=== PATIENT | male | born 1965 | race Caucasian/White ===

== ENCOUNTER → 2018-10-31 07:06 | Outpatient (CLI) | payer OTHER, SELFPAY ==
--- NOTE | 2018-10-31 07:13 | RAD_ITS ---
STUDY: X-RAY - LEFT SHOULDER REASON FOR EXAM: Male, 53 years old. Chronic left shoulder pain TECHNIQUE: 4 view(s) of the shoulder. COMPARISON: None. FINDINGS: Normal glenohumeral articulation. Normal acromioclavicular joint. Normal acromion. Normal humeral head and visualized proximal humerus. The soft tissue structures are unremarkable. There is an old fracture of the left clavicular shaft. Normal visualized pulmonary apex. RAD/Shoulder min 2 Views IMPRESSION: The osseous structures and articular surfaces of the left shoulder appear within normal limits. There is an old healed left clavicular shaft fracture. Electronically Signed: Samy Estrella MD at 23:41 EST , Service support ,
--- NOTE | 2018-10-31 07:15 | RAD_ITS ---
STUDY: X-RAY - STERNOCLAVICULAR JOINTS bilateral REASON FOR EXAM: Male, 53 years old. Previous left clavicular fracture. TECHNIQUE: 4 view(s) of the bilateral sternoclavicular joints were obtained. COMPARISON: None. FINDINGS: Normal bilateral sternoclavicular articulations. The right clavicle appears normal. There is an old healed fracture of the mid left clavicular shaft. Normal manubrium. Normal visualized ribs. RAD/S-C Jts Min 3 Views IMPRESSION: Old healed fracture of the mid left clavicular shaft. The study is otherwise unremarkable. Electronically Signed: Samy Estrella MD at 23:40 EST , Service support ,
== END ==
PROVIDERS: Family Provider Family Medicine; PCP Family Medicine; Referring Provider Family Medicine; Visit Provider Family Medicine
DX: M19.012 Primary osteoarthritis, left shoulder (principal); M25.512 Pain in left shoulder; G89.29 Other chronic pain
CPT/HCPCS: 71130; 73030

== ENCOUNTER 2018-12-23 18:00 | Outpatient (RCR) | payer OTHER, SELFPAY ==
--- NOTE | 2018-11-26 11:29 | HP.PTEVAL ---
Patient's Visit Information EVERETT BRANDON is a 53 year old M referred to Physical Therapy by Oral Webber MD with a diagnosis of POST-TRAUMATIC ARTHRITIS LEFT SHOULDER,SYNOVITIS AND TENOSYNOVITIS. Date of Evaluation: 11/26/18 Physical Therapist: Jasson Alford PT, Cert MDT, OCS - Visit Plan Frequency: 2x /Week Duration: 4 Weeks Plan: PRECAUTION : H/O STERNOCLAVICAL DISLOCATION WEAR SUPPORTIVE BRACE - Subjective Findings: This 53 y/o male presenst to physical therapy with left shoulder pain 3 weeks. Patient has h/o dislocted SC joint many years ago. Then started trap shooting caused agitated SC joint with SC dislocted.Patient wears vrace to protect sternoclavical joint. Patient seen DR Webber did x-rays OA ,also may have torn RTC . Wants to try PT prior to MRI. Tried cortizone injections didnt help.Pain located left anterior shoulder. Symptoms worse with [place] activities ,raising above 90 degrees affects ADL'S /housework chores.Pain is decribed as a sharp pain. Patient build house 32 years .Denies parathesai/tingling. Patient pain affects sleeping. Patient pain affects QOL and function. 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 SOCIAL: - Pain Left Shoulder Pain Intensity (Out of 10): 5 Pain Intensity Range: 10 - Objective POSTURE: mild foward posture. PALPTION: tender AC ,long head bicep groove. NEURO: intact. SHOULDER AROM: flexion 165 degrees,abduction 160 degrees,ER 90 degrees,ir 70 degrees. MMT: RTC 4/5,deltoid 4-/5. FUNCTION TEST: behind neck ,L-4 - Special Tests L Shoulder External Rotation Lag Test - RC Tear: Negative L Shoulder Supine Impingement Test - RC Tear: Negative L Shoulder Lift Off Test - Subscapular Tear: Negative L Shoulder Empty Can - SS: Negative L Shoulder Yeargasons - SLAP: Negative L Shoulder Speeds Test - Labrum/Biceps: Negative L Shoulder Sulcus Sign - Inferior Laxity: Negative L Shoulder Apprehension/Relocaton - SLAP: Negative L Shoulder AC Resisted - AC: Negative L Shoulder Shrug Sign - OA/Adhesive Capsulitis: Negative - Goals Goal 1:: Independant with HEP Goal Time Frame: 4-6 Weeks Goal 2:: Independant posture for ADL'S Goal Time Frame: 4-6 Weeks Goal 3:: Patient to decrease pain with certain movements 70 % improvement Goal Time Frame: 4-6 Weeks Goal 4:: Patient to improve QUICK DASH score 5 points or greater to impro ve function. Goal Time Frame: 4-6 Weeks Goal 5:: Patient be able to perform ADLS'a nd job demands with min limitation. Goal Time Frame: 4-6 Weeks - Rehabilitation Potential Physical Therapy Diagnosis: This shoulder has signs with biciptal long head snapping ,possible labrum issues with pain with certain activity ,strength impairs ADL'S and job demands Rehabilitation Potential: Good - Anticipated Interventions Patient/Client Instruction: Educate patient on: Condition, Plan of Care For the Purpose of:: To decrease pain, To increase ROM, To improve nutrient delivery to tissue, To increase oxygenation perfusion, To improve muscle performance and motor function, To improve ability to perform ADL's, To increase tolerance to activity/condition/position, To improve ability of physical actions for home/community/work/leisure, To improve health of tissue, To decrease soft tissue restriction, To increase flexibility/ROM, To improve ability to perform tasks related to life management Therapeutic Exercise to Include: Strength training, Postural training, Flexibilty training, Active ROM, Dulce Exercises For the Purpose of:: To decrease pain, To increase ROM, To improve muscle performance and motor function, To increase tolerance to activity/condition/position, To improve performance and independence with ADL's, To improve ability of physical actions for home/community/work/leisure, To improve health of tissue, To decrease soft tissue restriction, To increase flexibility/ROM, To improve ability to perform tasks related to life management TENS: Yes IF ES: Yes Cryotherapy (ice pack, ice massage): Yes Thermo therapy (hot pack): Yes Ultrasound (thermal/non thermal): Yes For the Purpose of:: To decrease pain, To decrease swelling/inflammation, To improve nutrient delivery to tissue, To increase oxygenation perfusion, To improve health of tissue, To decrease soft tissue restriction Thank you for the opportunity to evaluate your patient. For Medicare and Medicare HMO plans, please review the plan of care and approve it. It will need to be FAXED BACK to us at [phone] for Medicare purposes. For Medicare only, by signing this I certify the plan of care. Please let me know if there are questions or concerns regarding this plan of care. Physician Signature: Date:
--- NOTE | 2019-05-01 15:29 | HP.PTDCSUM ---
HP - PT D/C Summary It has been my pleasure to treat EVERETT BRANDON under orders from Oral Wbeber MD, for the diagnosis of POST-TRAUMATIC ARTHRITIS LEFT SHOULDER,SYNOVITIS AND TENOSYNOVITIS for a total of 9 visit(s). Discharge Date: 12/23/18 Please see the following information for a summary of their discharge status. - Subjective Subjective: Sore today ,but popping and sharp pain is better. - Pain Left Shoulder Pain Intensity (Out of 10): 4 - Overall Improvement % Improvement: 60 - Objective Objective/Function: POSTURE: mild foward posture. PALAPTION: tender long bicep tendon. NEURO: intact. AROM: shoulder flexion 160,abd. 160 ,ER pain with OP. MMT: RTC 4/5 ,deltoid 4/5 - Goals Goal 1:: Independant with HEP Goal Progress: Goal Met Goal 2:: Independant posture for ADL'S Goal Progress: Goal Met Goal 3:: Patient to decrease pain with certain movements 70 % improvement Goal Progress: Goal Met Goal 4:: Patient to improve QUICK DASH score 5 points or greater to impro ve function. Goal Progress: Goal Met Goal 5:: Patient be able to perform ADLS'a nd job demands with min limitation. Goal Progress: Goal Met - Plan Plan: RTC RTD - D/C Information Discharge Comments: HEP If there are questions or concerns regarding this patient's physical therapy, please feel free to call me at [phone]. Thank you for the referral of this patient. Sincerely, Jasson Alford, PT, Cert MDT, OCS
== END 2018-12-23 19:00 | disposition home or self-care (01) ==
LOC: PT 18:00
PROVIDERS: Family Provider Family Medicine; PCP Family Medicine; Referring Provider Specialist; Visit Provider Specialist
DX: M19.112 Post-traumatic osteoarthritis, left shoulder (principal); M65.812 Other synovitis and tenosynovitis, left shoulder
CPT/HCPCS: 97014; 97110; 97162; 97530; G0283

== ENCOUNTER → 2019-01-29 12:28 | Outpatient (CLI) | payer OTHER, SELFPAY ==
--- NOTE | 2019-01-29 12:32 | MRI_ITS ---
STUDY: MRI LEFT SHOULDER REASON FOR EXAM: Left shoulder pain for 2 months, no specific injury. TECHNIQUE: Standardized fat and water weighted pulse sequences were obtained in all 3 orthogonal planes. COMPARISON: Radiographs 10/31/2018. FINDINGS: There is mild supraspinatus tendinosis and a small non retracted full-thickness tear of the distal anterior supraspinatus tendon (T2 coronal image 6; T2 axial image 7) measuring 0.25 x 0.4 cm (length x width). Normal infraspinatus tendon. There is mild subscapularis tendinosis (proton density axial image 11) without discrete tendon tear. Normal teres minor tendon. Normal supraspinatus muscle. There is mild atrophy with mild partial fat replacement of the infraspinatus muscle (T2 axial images 7, 8). Normal subscapularis muscle. Normal teres minor muscle. Normal glenohumeral articulation. Normal humeral head and visualized proximal humerus. Normal biceps labral complex. Normal intracapsular long biceps tendon. There is a small tear of the posterior inferior labrum (proton density axial image 14) with a small associated paralabral cyst (T2 coronal image 16). Normal capsulo- ligamentous complex. There is acromioclavicular arthrosis with mild hypertrophic changes abutting the supraspinatus musculotendinous junction (T2 sagittal image 8). There is a Type II morphology (curved), with a neutral orientation. There is a very small volume subacromial-subdeltoid bursal fluid. Normal visualized coracohumeral and coracoacromial ligaments. Normal deltoid muscle. Normal trapezius muscle. MRI/Upper Ext Joint Only(Routine) IMPRESSION: Small full-thickness tear and mild tendinosis of the supraspinatus tendon. Mild subscapularis tendinosis. Mild atrophy of the infraspinatus muscle. Small tear of the posterior inferior labrum with a small paralabral cyst. Acromioclavicular arthrosis. Very small volume of subacromial-subdeltoid bursal fluid. Electronically Signed: Ulises Mcnally MD at 13:57 EDT Tel , Service support ,
== END ==
PROVIDERS: Family Provider Family Medicine; PCP Family Medicine; Referring Provider Specialist; Visit Provider Specialist
DX: M65.812 Other synovitis and tenosynovitis, left shoulder (principal)
CPT/HCPCS: 73221

== ENCOUNTER 2019-03-24 07:46 | Day surgery (SDC) | payer OTHER, SELFPAY ==
--- NOTE | 2019-02-25 09:36 | EKG12_ITS ---
Test Reason : PRE OP Blood Pressure : / mmHG Vent. Rate : 051 BPM Atrial Rate : 051 BPM P-R Int : 134 ms QRS Dur : 110 ms QT Int : 368 ms P-R-T Axes : 025 050 041 degrees QTc Int : 339 ms Sinus bradycardia Otherwise normal ECG Confirmed by JORDAN HOWE, ALBINO ([id number]), content editor SATISH JIMÉNEZ ([id number]) on 02/26/2019 11:25:38 AM Referred By: Keaton Reyna Confirmed By:ALBINO ORTEGA MD
[2019-02-25 10:05] LABS: Hematocrit 45.4 % (40-54); Hemoglobin 15.7 g/dl (13.0-16.5); Mean Corp Hgb Conc 34.6 g/gl (32-36); Mean Corpuscular Hgb 32.4 pg (27.0-32.0); Mean Corpuscular Volume 93.6 fL (80-94); Platelet Count 189 K/mm3 (150-450); RBC Distribution Width CV 12.7 % (11.6-14.6); RBC Distribution Width SD 42.7 fl (35.1-43.9); Red Blood Count 4.85 M/mm3 (4.6-6.2); White Blood Count 5.9 K/mm3 (4.4-11.0)
[2019-02-25 10:07] LABS: Scan Indicated on CBC? Y/N NO
[2019-02-25 10:46] LABS: Anion Gap 4 (5-15); BUN 15 mg/dL (7-18); BUN/Creat Ratio 17.7 RATIO (10-20); Calcium,Total 8.8 mg/dL (8.5-10.1); Chloride 107 mmol/L (98-107); Creatinine, Serum 0.85 mg/dL (0.70-1.30); EST Glomerular Filtration Rate 99 mL/min (>60); Est Glom Filt Rate - Afr Amer 120 mL/min (>60); Glucose 98 mg/dL (74-106); Potassium 3.8 mmol/L (3.5-5.1); Sodium Level 137 mmol/L (136-145)
[2019-03-24 08:12] VITALS: BP 124/86; PULSE 62; RESP 14; TEMP 36.6; O2SAT 98; BMI 29.3
[2019-03-24] MEDS: Cefazolin 2 GM in 0.9% Normal Saline 100 ML IV (09:54)
[2019-03-24] MEDS: Epinephrine (1 mg/ml) 1 MG/ML VIAL (10:00)
[2019-03-24] MEDS: Bupiv/Epi 0.5% Mpf 30 ML Vial (10:30)
--- NOTE | 2019-03-24 10:56 | PCM.OPRPT ---
Report of Operation Date of Procedure: 03/24/19 Pre-Operative Diagnosis: SAIS, AC arthrosis possible rotator cuff tear left shoulder Post-Operative Diagnosis: SAIS, AC arthrosis, bicipital tendinopathy, no rc tear left Surgery/Procedure Performed:: SAD, Tiana procedure, biceps tenotomy, intra-articular debridement left shoulder Description of Surgical Findings:: Primary Surgeon/Physician: Keaton Reyna efficiency analyst: Jb Fitzgerald PA-C efficiency analyst: Pre-Operative Diagnosis: SAIS, AC arthrosis, bicipital tendinopathy, possible rotator cuff tear left Post-Operative Diagnosis: same with no rotator cuff tear and Type 2 SLAP lesion Surgery/Procedure Performed: SAD, Tiana, biceps tenotomy, intra-articular debridement Estimated Blood Loss: minimal Specimen's Removed: none Type of Anesthesia: general ASA Class: 2 Implants: [] Surgical Indications: [ ] Procedure Description: Patient was greeted in the preoperative area. Their [left ] shoulder was marked with surgical marker. Preoperative antibiotics were administered. The patient was then taken to the operating suite in a stable condition. After adequate anesthesia was obtained and it was secured there placed in standard beachchair position. All bony prominences were well-padded her head was secured in a beachchair positioner. The arm was then prepped and draped in the usual sterile fashion. Surgical timeout was performed surgery was commenced. Standard posterior viewing portal was made and 30? arthroscope was introduced into the glenohumeral joint. Anterior portal was made under direct visualization. Extensive debridement of the anterior capsule was performed evaluation of the shoulder itself was performed with the following findings: [ There was interstitial tearing of the biceps tendon with severe tendinopathy noted. There was a Type 2 SLAP lesion noted with no instability of the labrum. The surface cartilage of the glenoid and humeral head were in good condition. There was mild fraying of the undersurface of the supraspinatus tendon. This area was marked with an 0 Prolene stitch for identification from the bursal surface. A biceps tenotomy was performed with a shaver and the shaver was used to debride the labrum back to a firm and stable rim.]. The subacromial space was then entered and extensive debridement of the subacromial bursa was performed. The undersurface of the acromion was then debrided with a thermal wand. This did reveal a type II acromion. Subacromial decompression was then performed with a arthroscopic bur from anterolateral posteromedial create a type I acromion. When this was complete the wand was then utilized to debride the acromioclavicular joint. There were significant osteoarthritic changes. A distal clavicle resection was then performed removing approximately 5 mm of distal clavicle not violating the superior acromioclavicular ligament. This was complete attention was then turned to the rotator cuff. [The stitch that I had placed was identified and this area was probed reveling no full thickness or significant partial rotator cuff tear ]. The arthroscopy instruments and fluid were then removed and the portals were closed with interrupted sutures of 4-0 nylon. A sterile dressing and sling were than applied. The patient was extubated and sent to PACU in stable and satisfactory condition. My producer assistant, Mr. Fitzgerald, provided a vital role in this procedure. He assisted in positioning and draping. He maneuvered the arm to provide optimal visualization during the procedure and he closed the wounds and applied the sterile dressing and sling. efficiency analyst: Kyel Fitzgerald Type of Anesthesia:: General/Regional Anesthesiologist: Rajendra Phillips - Ana VTE Documentation VTE Present on Admission: No VTE Mechan Device Prophylaxis: SCD's, Thigh High ARTHUR Hose VTE Pharm Prophylaxis ordered?: No Reason prophylaxis not ordered:: Treatment Not Indicated
[2019-03-24 11:20] VITALS: BP 124/86; BP 156/77; PULSE 60; RESP 16; TEMP 35.9; O2SAT 96
[2019-03-24 11:30] VITALS: BP 124/86; BP 138/92; PULSE 59; RESP 16; O2SAT 94
[2019-03-24] MEDS: Ketorolac 30 MG/ML Syringe IV (11:31)
[2019-03-24 11:45] VITALS: BP 124/86; BP 134/97; PULSE 55; RESP 16; TEMP 35.9; O2SAT 95
[2019-03-24] MEDS: HYDROcodone Bitartrate/Apap 5/325 Tablet PO (12:26)
[2019-03-24 12:50] VITALS: BP 124/86; BP 125/91; PULSE 65; RESP 16; TEMP 36.1; O2SAT 96
== END 2019-03-24 12:52 | disposition home or self-care (01) ==
LOC: SDC 07:47 → AC 07:49
PROVIDERS: Family Provider Family Medicine; PCP Family Medicine; Referring Provider Orthopaedic Surgery; Visit Provider Orthopaedic Surgery
PROC: (CPT 29827; principal; 2019-03-24 09:30)
DX: M19.012 Primary osteoarthritis, left shoulder (principal); M75.22 Bicipital tendinitis, left shoulder; I10 Essential (primary) hypertension; K21.9 Gastro-esophageal reflux disease without esophagitis; Z87.442 Personal history of urinary calculi; Z79.899 Other long term (current) drug therapy; Z79.891 Long term (current) use of opiate analgesic
CPT/HCPCS: 29823; 29824; 29828; 36415; 80048; 85027; 93005; J7120; J2405

== ENCOUNTER 2019-05-07 12:00 | Outpatient (RCR) | payer OTHER, SELFPAY ==
--- NOTE | 2019-03-05 12:55 | HP.PTEVAL_ITS ---
Patient's Visit Information EVERETT BRANDON is a 53 year old M referred to Physical Therapy by Keaton Reyna DO with a diagnosis of L rot cuff tear. Date of Evaluation: 03/05/19 Physical Therapist: Destin Ribera, PT, ATC - Visit Plan Frequency: 1x/Week Duration: 1 Week Plan: I Issued pt a HEP for rotator cuff strengthening and scapular stab ex's. Pt is I with HEP. Discharge. - Subjective Findings: Pt reports his L shoulder has been sore for a couple months. 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 Pt reports once the pain started, it just progressively worsened over this time span. Pt is L hand dominant. Pt reports occasional tingling and numbness in L UE. Pt reports his pain wakes him up in the middle of the night. Pt reports he had an MRI which showed bone spurs and a tear of the L rotator cuff which all needs to be surgically repaired. Pt notes he is scheduled to have surgery 03/24/19, and so he is here to get some ex's to strengthen his shoulder prior to surgery. 0/10 pain at rest, 7/10 at worst. - Pain L shoulder pain Pain Intensity (Out of 10): 0 Pain Intensity Range: 7 - Objective Neuro: B UE sensation is WNL to light touch. B bicepital reflex= 2/3. Palpation: No specific tenderness on the distribution of the supraspinatus. No obvious deformity present. ROM: R shoulder flex= 165, abd= 170, ER= 60, IR WNL; L shoulder flex= 155, abd= 155, ER= 55, IR WNL. MMT: L shoulder ER= 4+/5. All other measurements 5/5 throughout. Special test: pos empty can - Goals Goal 1:: I with HEP after one visit Goal Time Frame: 1 Week - Rehabilitation Potential Physical Therapy Diagnosis: Pt has L shoulder weakness, decreased ROM, and pain secondary to L shoulder rot cuff tear Rehabilitation Potential: Good - Anticipated Interventions Patient/Client Instruction: Educate patient on: Condition, Plan of Care For the Purpose of:: To improve self management Therapeutic Exercise to Include: Strength training, Scapular Strength/Stabilization For the Purpose of:: To decrease pain, To increase ROM, To improve muscle performance and motor function Thank you for the opportunity to evaluate your patient. For Medicare and Medicare HMO plans, please review the plan of care and approve it. It will need to be FAXED BACK to us at [phone] for Medicare purposes. For Medicare only, by signing this I certify the plan of care. Please let me know if there are questions or concerns regarding this plan of care. Physician Signature: Date:
--- NOTE | 2019-03-31 09:44 | HP.PTREVAL ---
Keaton Reyna, DO, It has been my pleasure to treat EVERETT BRANDON over the last 2 visits for L rot cuff tear. Please see the progress note below for an update on the physical therapy plan of care! Subjective: Pt return after having surgery one week ago. No pain this date. Pt reports he had decompression with a rotator cuff repair. DOS: 03/24/19 Objective/Function: L shoulder Flex= 140, abd= 140 degrees. Pain is 0/10 at rest. Pt is recovering great at this time Plan Plan: Phase I rotator cuff repain Goals Goal 1:: I with HEP after one visit Goal Time Frame: 1 Week Anticipated Interventions Patient/Client Instruction: Educate patient on: Condition, Plan of Care For the Purpose of:: To improve self management Therapeutic Exercise to Include: Strength training, Scapular Strength/Stabilization For the Purpose of:: To decrease pain, To increase ROM, To improve muscle performance and motor function Please do not hesitate to contact me at [phone] by phone or if you have questions or concerns regarding this new plan of care! Sincerely, Destin Ribera, PT, ATC
--- NOTE | 2019-05-07 12:26 | HP.PTDCSUM ---
HP - PT D/C Summary It has been my pleasure to treat EVERETT BRANDON under orders from Keaton Reyna DO, for the diagnosis of L rot cuff tear for a total of 7 visit(s). Discharge Date: Please see the following information for a summary of their discharge status. - Subjective Subjective: Pt reports today is his last day. Dr released him from PT. No pain this date - Pain L shoulder pain Pain Intensity (Out of 10): 0 - Overall Improvement % Improvement: 90 - Objective Objective/Function: L shoulder pain 0/10. L shoulder ROM: flex= 150, abd= 135, ER= 55, IR WNL. L shoulder MMT: 4/5 throughout. I with HEP. Rx goals achieved - Goals Goal 1:: I with HEP after one visit Goal Progress: Goal Met - Plan Plan: Discharge - D/C Information If there are questions or concerns regarding this patient's physical therapy, please feel free to call me at [phone]. Thank you for the referral of this patient. Sincerely, Destin Ribera, PT, ATC
== END 2019-05-07 19:00 | disposition home or self-care (01) ==
LOC: PT 12:00
PROVIDERS: Family Provider Family Medicine; PCP Family Medicine; Referring Provider Orthopaedic Surgery; Visit Provider Orthopaedic Surgery
DX: S46.012D Strain of muscle(s) and tendon(s) of the rotator cuff of left shoulder, subsequent encounter (principal)
CPT/HCPCS: 97140; 97161; 97530

== ENCOUNTER → 2019-06-25 08:33 | Outpatient (CLI) | payer OTHER, SELFPAY ==
[2019-06-25 09:36] LABS: ALB/GLOB Ratio 1.3 RATIO (0.9-2.4); AST(SGOT) 23 U/L (15-37); Alanine Aminotransfer ALT/SGPT 38 U/L (16-61); Albumin, Serum 3.8 g/dL (3.2-5.0); Alkaline Phosphatase 82 U/L (45-117); Anion Gap 7 (5-15); BUN 13 mg/dL (7-18); BUN/Creat Ratio 16.8 RATIO (10-20); Calcium,Total 8.2 mg/dL (8.5-10.1); Chloride 111 mmol/L (98-107); Cholesterol 246 mg/dL (200); Creatinine, Serum 0.77 mg/dL (0.70-1.30); EST Glomerular Filtration Rate 111 mL/min (>60); Est Glom Filt Rate - Afr Amer 134 mL/min (>60); Globulin 2.9 g/dL (2.2-4.2); Glucose 98 mg/dL (74-106); High Density Lipoprotein 41 mg/dL; Magnesium 2.1 mg/dL (1.6-2.6); PSA,Total - Annual Screen 2.61 ng/mL (0.00-4.00); Potassium 3.9 mmol/L (3.5-5.1); Protein, Total 6.7 g/dL (6.4-8.2); Sodium Level 142 mmol/L (136-145); Thyroid Stim Hormone (TSH) 2.39 uIU/mL (0.358-3.74); Triglycerides 84 mg/dL; Very Low Density Lipoprotein 17 mg/dL (5-40)
== END ==
PROVIDERS: Family Provider Family Medicine; PCP Family Medicine; Referring Provider Family Medicine; Visit Provider Family Medicine
DX: Z00.01 Encounter for general adult medical examination with abnormal findings (principal); I10 Essential (primary) hypertension; Z12.5 Encounter for screening for malignant neoplasm of prostate
CPT/HCPCS: 36415; 80053; 80061; 83735; 84153; 84443; G0103

== ENCOUNTER 2019-07-23 10:26 | Day surgery (SDC) | payer OTHER, SELFPAY ==
[2019-07-23] VITALS (9 sets, daily range): BP systolic 97–125; BP diastolic 70–88; PULSE 55–61; RESP 16; TEMP 36.4–36.9; O2SAT 96–99; BMI 28.4
[2019-07-23] MEDS: Lactated Ringers 1,000 ML 100 ML IV (11:11)
--- NOTE | 2019-07-23 11:25 | H&P.OPEN ---
History of Present Illness Date of Admission: 07/23/19 The patient is a 54 year old M who presents for a screening colonoscopy. The patient reports he had a colonoscopy for mild bleeding about 10 to 12 years ago. At that time it was decided that it was due to his hemorrhoids as there was no pathology found. The patient does have a history of colon cancer in his mother diagnosed at age 70. The patient is currently expensing no bleeding or abdominal pain. Past Medical/Surgical History - Planned Operation Planned Operative Procedure/s: COLONOSCOPY Date of Operative Procedure: 07/23/19 Permit Signed: Yes S.O.S: No Is This Patient Having a Total Joint: No - Previous Hospitalizations/Surgeries HX Hospitalizations: No HX of Surgeries: KIDNEY STONES. COLONOSCOPY. L SHOULDER SCOPE 03/24/19 Any Problems With Anesthesia: No You/Your Family Experience Fever (Hyperthermia) With Anes: No Cholinesterase deficiency: No - Cardiovascular Hx Chest Pain within Last 2 months: No Hx of Irregular Heartbeat and/or Afib: No Hx Heart Attack: No Hx Congestive Heart Failure: No Hx Rheumatic Fever: No Hx Hypertension: Yes - ON MED Hx Internal Defibrillator: No Hx Pacemaker: No Hx Cardiac Catheterization: No Hx Cardiac Surgery/Stents/Etc.: No Hx Stress Test: Yes - OVER 5 YRS AGO.STATES NEG HX Edema: No Hx Pain in Legs when Walking/Leg Cramps: No - Respiratory Chronic Cough: No HX of Shortness of Breath: No - DENIES Hoarseness: No Hx Chronic Obstructive Pulmonary Disease (COPD): No Hx Asthma: No Hx Emphysema: No Hx Sleep Apnea: No Hx Oxygen Use at Home: No Hx Respiratory Tract Infection/Cold (presently): Yes - RUNNY NOSE, NO FEVER Do You Snore Loudly (louder than talking or can be heard): Yes Do You Often Feel Tired/ Fatigued/ Sleepy Dring Daytime?: No Has Anyone Observed You Stop Breathing During Sleep?: No Result (for STOP score): Positive Hx Smoking: No Smoking Status: Never smoker - Gastrointestinal Hx Gastroesophageal Reflux: Yes Controlled With Meds: Yes - PRILOSEC NEEDED Hx Gastrointestinal Disorders: No Hx Gastrointestinal Bleed: No Hx Ulcer: No Hx Hiatal Hernia: No Difficulty Chewing/Swallowing: No Special diet followed at home: Yes Hx Unplanned Weight Loss of 20#: No HX Unplanned Weight Gain of 20#: No - Neurological Hx Seizures: No HX Syncope/Blackout Spells/Unconsciousness: No Hx CVA/Stroke: No Hx Transient Ischemic Attacks (TIA): No Hx Multiple Sclerosis: No Hx Parkinson's Disease: No Hx Head/Neck Injury: Yes - CONCUSSION PER HX,NOT RECENT Hx Headaches: No Hx Back Injury/Pain: No Recent Onset of Speech Difficulty: No Restless Legs: No Does patient have nerve stimulator: No - Blood Disorder Hx Leukemia: No Bleeding Tendencies: No Hx Deep Vein Thrombosis: No Hx High Cholesterol: No Blood Transmitted Disease: No Hx Hepatitis: No Hx Cirrhosis: No Hx Anemia: No Hx Blood Disorders: No - Genitourinary Hx Renal Disease: No - HX STONES Hx Dialysis: No - Musculoskeletal Hx Arthritis: Yes Hx Rheumatoid Arthritis: No Hx Gout: No Recent Onset of an Orthopedic Problem: No - CHRONIC SHOULDER,LT - Endocrine Hx Diabetes: No Thyroid Disease: No Hx Steroid Therapy: Yes - INJECTION - Psycho/Social Hx Substance Use: No Hx Alcohol Use: Yes - 2 BEERS/MONTH Hx Anxiety: No Hx Depression: No Mental Illness: No Hx Dementia: No - Miscellaneous Hx Cancer: No Recent Exposure to Contagious Disease: No Active MRSA: No Hx of C-Diff: No Any Loose Teeth: No Allergies tetracycline Allergy (Verified 07/22/19 09:37) Unknown - Discharge Is Pt Admitted From a [facility], or a Correction: No Who Could Help: After D/C, Where Do you Plan to Go: Return Home - Physical Exam Vitals/I&O's: Vital Signs Temp Pulse Resp BP Pulse Ox 97.5 F L 55 L 16 125/88 H 97 07/23/19 10:56 07/23/19 10:56 07/23/19 10:56 07/23/19 10:56 07/23/19 10:56 Oxygen Delivery Method Room Air Weight: 173 lb 11.588 oz Body Mass Index (BMI) 28.4 General: Alert, Oriented x3 Neck: No JVD Lungs: Normal air movement Cardiovascular: Regular rate, Regular Rhythm Abdomen: Soft, Non Tender, Non-Distended Current Medications Lactated Ringer's () 1,000 mls @ 100 mls/hr IV .Q10H EMANUEL Last Admin: 07/23/19 11:11 Dose: 100 mls/hr Documented by: Assessment/Plan 54-year-old male screening colonoscopy I explained endoscopy in detail to the patient. I explained the risks including but not limited to stroke or heart attack with anesthesia, perforation of the GI tract, bleeding, infection. I explained that any of these could necessitate further emergency surgery. The patient understands and all questions were answered sufficiently. The patient wishes to proceed with procedure. Braden Jones MD Pager: [facility] [address] [place] [address] [address] [place] [address] Office: Surgery Risks - Colonoscopy Risks Include but are not Limited To: Risks include but are not limited to: Bleeding, perforation requiring further surgery, inability to complete colonoscopy requiring barium enema.
--- NOTE | 2019-07-23 12:09 | OP.ENDO_ITS ---
07/23/2019 Charli Michelle Re : Colonoscopy procedure for Mati Singleton Dear Viviana This procedure was performed on Tuesday, July 23, 2019. My impressions and recommendations are as follows: Impressions : - The entire examined colon is normal on direct and retroflexion views. - No specimens collected. Recommendations : - Discharge patient to home. - Resume previous diet. - Continue present medications. - Repeat colonoscopy in 10 years for screening purposes. My findings are described in the full procedure note, which is enclosed. If I can be of further assistance, please feel free to contact me at Doctor phone number(s): , Work: . Sincerely, Braden Jones MD 07/23/2019 12:09:38 PM This report has been signed electronically.
== END 2019-07-23 13:04 | disposition home or self-care (01) ==
LOC: EN 10:27 → AC 10:30
PROVIDERS: Family Provider Family Medicine; PCP Family Medicine; Referring Provider Family Medicine; Visit Provider Surgery
PROC: 0DJD8ZZ Inspection of Lower Intestinal Tract, Via Natural or Artificial Opening Endoscopic (ICD-10-PCS; CPT 45378; principal; 2019-07-23 11:25)
DX: Z12.11 Encounter for screening for malignant neoplasm of colon (principal); K21.9 Gastro-esophageal reflux disease without esophagitis; I10 Essential (primary) hypertension; Z79.899 Other long term (current) drug therapy; Z80.0 Family history of malignant neoplasm of digestive organs
CPT/HCPCS: 45378; J7120; J2405

== ENCOUNTER → 2023-03-15 | Outpatient (CLI) | payer OTHER, SELFPAY ==
[2023-03-16 09:41] LABS: PSA,Total- Diagnostic 8.55 ng/mL (0.0-4.0)
== END | disposition home or self-care (01) ==
LOC: LAB 16:29
PROVIDERS: PCP Family Medicine; Referring Provider Urology; Visit Provider Urology
DX: R97.20 Elevated prostate specific antigen [PSA] (principal)
CPT/HCPCS: 36415; 84153; G0103

== ENCOUNTER → 2023-04-02 | Outpatient (CLI) | payer OTHER, SELFPAY ==
--- NOTE | 2023-04-02 08:30 | MRI_ITS ---
STUDY: MR PELVIS WITH AND WITHOUT CONTRAST (PROSTATE) REASON FOR EXAM: Male, 57 years old. Elevated PSA TECHNIQUE: Standardized multiparametric prostate MRI with T1, T2, DWI/ADC sequences were obtained in 3 orthogonal planes, and dynamic contrast enhancement sequences. 15 ml of clariscan contrast material was administered intravenously for the contrast portion of the examination. COMPARISON: None. FINDINGS: The prostate volume measures 40 mm3. The contours of the prostate gland are lobulated. There is mass effect on the bladder base. The transition zone is homogenous. PI-RADS DWI score 3 - Focal mildly hypointense on ADC and isointense/mildly hyperintense on high b-value DWI, as seen in the left mid and transitional zone on image 9 series 501 and image 106 series 5. PI-RADS T2W score 3 - Heterogeneous signal intensity with obscured margins. Contrast enhancement no early or contemporaneous enhancement; or diffuse multifocal enhancement NOT corresponding to a focal finding on T2W and/or DWI or focal ehancement responding to a lesion demonstrating features of BPH onT2WI (including features of extruded BPH in the PZ). The peripheral zone is homogenous. PI-RADS DWI score 2 - Linear/wedge shaped hypointense on ADC and/or linear/wedge shaped hyperintense on high b-value DWI. PI-RADS T2W score 2 - Linear, wedge-shaped, or diffuse mild hypointensity, usually with indistinct margin. Contrast enhancement no early or contemporaneous enhancement; or diffuse multifocal enhancement NOT corresponding to a focal finding on T2W and/or DWI or focal enhancement responding to a lesion demonstrating features of BPH onT2WI (including features of extruded BPH in the PZ). The seminal vesicles demonstrate normal margins and T2 signal pattern. No mass lesion or invasion depicted. The rectoprostatic angles are normal. 2 cm calculus of the left side of the urinary bladder on image 4 of series 9. The vascular structures of the are normal. The visualized hollow viscus structures are normal. Small bilateral inguinal hernias. No bone marrow edema or mass lesion depicted. MRI/Pelvis W/WO Contrast IMPRESSION: 1. PIRADS v2.1 2019 -- 3 - Intermediate (clinically significant cancer is equivocal). 2. BPH obscures transitional zone. Lobular borders and mass effect on the urinary bladder base. 3. Urinary bladder calculus. Electronically Signed: Stefano Carmona (Brooks), at 16:43 EDT Reading Location ID and State: / [place] , Service support ,
== END | disposition home or self-care (01) ==
PROVIDERS: PCP Family Medicine; Referring Provider Family Medicine; Visit Provider Urology
DX: R97.20 Elevated prostate specific antigen [PSA] (principal)
CPT/HCPCS: 72197; A9575

== ENCOUNTER → 2023-04-12 | Outpatient (CLI) | payer OTHER, SELFPAY ==
--- NOTE | 2023-04-12 | PROSBIL_PTH ---
PATIENT: EVERETT BRANDON LOC: [facility] U#:[id number] AGE/SX: 58/M ROOM: RE04/12/[address]: Dr. Thuan Rainey MD : 1965 BED: DIS: 04/12/2023 SPEC #: [id number] RECD: 04/12/23 12:43 STATUS: JEFF RE #: [id number] MOOK: 04/12/23 00:[address]: Thuan Rainey DEPT: SURGICAL PATHOLOGY RECD BY: Nikita Bravo ENTERED: 04/12/23 12:43 SP TYPE: PROST BX OT DR: Dr. Charli Michelle MD Tissues: A - PROSTATE RIGHT B - PROSTATE RIGHT C - PROSTATE RIGHT D - PROSTATE LEFT E - PROSTATE LEFT F - PROSTATE LEFT Procedures: PROSTATE BX Comments: @ Specimen number changed from [id number] to [id number] @ on 04/12/23 at 1327 by CARMEN. HEADER OPERATION: Prostate biopsy PRE-OP DIAGNOSIS: Elevated PSA TISSUE SUBMITTED: A - Right apex, B - Right mid, C - Right base, D - Left apex, E - Left mid, F - Left base MICROSCOPIC DIAGNOSIS A. Right prostate, apex, core biopsy: Prostatic tissue, negative for malignancy. B. Right prostate, mid, core biopsy: Prostatic tissue, negative for malignancy. Focal mild chronic inflammation. C. Right prostate, base, core biopsy: Prostatic tissue, negative for malignancy. D. Left prostate, apex, core biopsy: Prostatic tissue, negative for malignancy. E. Left prostate, mid, core biopsy: Atypical small acinar proliferation (HAILY). Focal mild chronic inflammation. See comment. F. Left prostate, base, core biopsy: Prostatic adenocarcinoma. [place] grade: 3+3=6 Number of cores involved: 1/2 Proportion of tissue involved: ~20% Perineural invasion: Present, focal. Greatest tumor length: 0.5 cm Chronic inflammation. See comment. SJ:rg 04/13/2023 COMMENT E. Immunohistochemistry ([id number]) supports the above diagnosis. F. Focal area of atypical small acinar proliferation (HAILY) suspicious for carcinoma is also noted in the second core. Case has been reviewed in consultation with Dr. Razo who concurs with the above diagnosis. IDC:AM MICROSCOPIC DESCRIPTION Slides are reviewed. GROSS DESCRIPTION A - Received is one container designated prostate, right apex. The specimen consists of three elongated fragments of light ventura-white soft tissue measuring 0.5 to 1.2 cm in length and 0.1 cm in diameter. The specimen is totally submitted in one cassette. B - Received is one container designated prostate, right mid. The specimen consists of three elongated fragments of light ventura-white soft tissue measuring 0.5 to 1.1 cm in length and 0.1 cm in diameter. The specimen is totally submitted in one cassette. C - Received is one container designated prostate, right base. The specimen consists of two elongated fragments of light ventura-white soft tissue each measuring 1.3 cm in length and 0.1 cm in diameter. The specimen is totally submitted in one cassette. D - Received is one container designated prostate, left apex. The specimen consists of two elongated fragments of light ventura-white soft tissue measuring 1.2 and 1.7 cm in length and 0.1 cm in diameter. The specimen is totally submitted in one cassette. E - Received is one container designated prostate, left mid. The specimen consists of three elongated fragments of light ventura-white soft tissue measuring 0.7 to 1.3 cm in length and 0.1 cm in diameter. The specimen is totally submitted in one cassette. F - Received is one container designated prostate, left base. The specimen consists of two elongated fragments of light ventura-white soft tissue measuring 1.3 and 1.8 cm in length and 0.1 cm in diameter. The specimen is totally submitted in one cassette. / SJ:rg 04/12/2023 TC:0 [facility]: [id number] [phone]
--- NOTE | 2023-04-12 | IMM_PTH ---
PATIENT: EVERETT BRANDON LOC: [facility] U#:[id number] AGE/SX: 58/M ROOM: RE04/12/[address]: Dr. Thuan Rainey MD : 1965 BED: DIS: 04/12/2023 SPEC #: [id number] RECD: 04/13/23 13:33 STATUS: JEFF REQ #: [id number] MOOK: 04/12/23 00:[address]: Thuan Rainey DEPT: IMMUNOHISTOCHEMISTRY RECD BY: Tena Ken ENTERED: 04/13/23 13:34 SP TYPE: IMMUNO OTHR DR: Dr. Charli Michelle MD Tissues: E - PROSTATE LEFT Procedures: P40 (add) 34BE12 (initial) PHYSICIAN & INSTITUTION [place] [id number] SPECIMEN INFORMATION: Tissue Source: E - Left prostate, mid, core biopsy Clinical Info: Elevated PSA Specimen Number: [id number] CPT code: 89128, 48952 METHODOLOGY: Deparaffinized sections of prefer/formalin-fixed tissue or PAP/DQ stained slides are incubated with monoclonal/polyclonal antibodies/oligonucleotide probes. Localization is made via biotin free immunoperoxidase method. Appropriate controls are performed and reacted as expected. Results on target cell population are indicated in the following table: RESULTS: ANTIBODY / CLONE RESULT Block E P40 (BC28) negative 34BE12 (34BE12) negative These tests were developed and their performance characteristics determined by [facility]. They may not have been cleared or approved by the U.S. Food and Drug Administration. The FDA has determined that such clearance or approval is not necessary. The above immunohistochemical/dualISH markers are ordered and reviewed by the Pathologist. INTERPRETATION: E. Left prostate, mid, core biopsy: Focal atypical small acinar proliferation. SJ:ashley 04/16/2023
== END | disposition home or self-care (01) ==
PROVIDERS: PCP Family Medicine; Referring Provider Urology; Visit Provider Urology
DX: C61 Malignant neoplasm of prostate (principal)
CPT/HCPCS: 88305; 88341; 88342; G0416

== ENCOUNTER → 2023-05-02 | Outpatient (CLI) | payer OTHER, SELFPAY ==
--- NOTE | 2023-05-02 07:45 | NM_ITS ---
CLINICAL: 79-bld[age]-year-old male with history of primary prostate carcinoma. WHOLE BODY 99m Tc MDP RADIONUCLIDE BONE SCINTIGRAPHY COMPARISON: Previous whole body bone scintigraphy study dated 12/17/2007 FINDINGS: Following the intravenous administration of 29.0 mCi of 99m Tc MDP, whole body bone images reveal: 1. Increased radiopharmaceutical concentration is defined in the sternoclavicular compartments of both shoulders, the acromioclavicular compartment of the right shoulder, the bilateral elbows, the wrist articulations bilaterally, both hands, right-left knees, the lower cervical spine posteriorly on the right, fifth lumbar vertebra posteriorly on the left and right. 2. The remaining skeletal structures are scintigraphically unremarkable with normal-appearing renal images and urinary bladder activity identified. NM/Bone Scan Whole Body IMPRESSION: 1. The increase in radiopharmaceutical concentration defined in the bilateral shoulders, right and left elbows, both wrist articulations, the right and left hands, knees bilaterally, the cervical and lumbar spine is commensurate with degenerative arthrosis. 2. Overall compared to the previous whole body bone scintigraphy study dated 12/17/2007 there is minimal interval change. There is no current scintigraphic evidence of diffuse axial skeletal metastatic disease on the present examination. Electronically Signed: Josiah Hayden, at 22:27 EDT ,
--- NOTE | 2023-05-02 07:51 | CT_ITS ---
STUDY: CT ABDOMEN AND PELVIS WITH AND WITHOUT CONTRAST REASON FOR EXAM: Male, 58 years old. Newly diagnosed prostate cancer. Urgency and frequency. RADIATION DOSAGE (If Supplied By Facility): CTDIvol = ( 19.26 ) mGy, DLP = ( 2077.69 ) mGycm TECHNIQUE: Transaxial images were obtained from the dome of the diaphragm to the symphysis pubis without oral contrast. IV 100mL Isovue-300 was administered. Sagittal and coronal images were reconstructed. Individualized dose optimization techniques were used for this CT. COMPARISON: None. FINDINGS: The visualized lung bases are unremarkable. Coronary artery calcification. Small cysts are seen in both lobes of the liver. Mild fatty infiltration of the liver. Normal gallbladder and extrahepatic biliary system. Normal spleen. Normal pancreas. Normal bilateral adrenal glands. Normal right kidney. 2 mm nonobstructive calculus in the mid calyx of the left kidney. Normal visualized stomach. Normal small intestine. Normal colon. The appendix is visualized and appears normal. There is scattered atherosclerotic calcification of the abdominal aorta, without a demonstrated aneurysm. Normal inferior vena cava. Normal retroperitoneum. Distended urinary bladder. There is a 1.9 cm x 1.3 cm calculus at the base of the bladder on the left side. There is enlargement of the prostate gland with indentation at the bladder base. It measures 5 cm x 4.2 cm. Calcifications is seen within it. There is a small umbilical hernia containing fat. Degenerative changes at the L5-S1 disc space level. CT/CT Abd/Pelvis W/WO Contrast IMPRESSION: Prostatic enlargement with indentation of the bladder base. 1.9 cm x 1.3 cm bladder calculus. Fatty infiltration of the liver. Multiple small hepatic cysts. Electronically Signed: Jose David Helms MD at 15:25 EDT ,
== END | disposition home or self-care (01) ==
PROVIDERS: PCP Family Medicine; Referring Provider Urology; Visit Provider Urology
DX: C61 Malignant neoplasm of prostate (principal)
CPT/HCPCS: 74178; 78306; A9503; Q9967; A4216

== ENCOUNTER 2023-06-15 08:32 | Observation (INO) | payer OTHER, SELFPAY ==
--- NOTE | 2023-06-06 13:57 | EKG12_ITS ---
Test Reason : PRE OP Blood Pressure : / mmHG Vent. Rate : 061 BPM Atrial Rate : 061 BPM P-R Int : 156 ms QRS Dur : 108 ms QT Int : 372 ms P-R-T Axes : 039 033 032 degrees QTc Int : 374 ms Normal sinus rhythm Normal ECG Confirmed by HORACE HOWE, JANICE ([id number]), supervising film or videotape editor DAMIAN GONZALEZ ([id number]) on 06/12/2023 10:39:03 AM Referred By: Thuan Rainey Confirmed By:RIN VU MD
[2023-06-06 16:00] LABS: Anion Gap 6 (5-15); BUN 25 mg/dL (7-18); BUN/Creat Ratio 24.5 RATIO (10-20); Calcium,Total 8.9 mg/dL (8.5-10.1); Chloride 106 mmol/L (98-107); Creatinine, Serum 1.02 mg/dL (0.70-1.30); EST Glomerular Filtration Rate 79 mL/min (>60); Est Glom Filt Rate - Afr Amer 96 mL/min (>60); Glucose 95 mg/dL (74-106); Potassium 3.7 mmol/L (3.5-5.1); Sodium Level 139 mmol/L (136-145)
[2023-06-15] VITALS (9 sets, daily range): BP systolic 96–122; BP diastolic 65–85; PULSE 55–68; RESP 16–18; TEMP 36.1–36.8; O2SAT 92–97; BMI 31.2
--- NOTE | 2023-06-15 07:27 | PCM.HP.BLA ---
History and Physical Date of Admission: 06/15/23 Patient returns, 58-year-old male with a continuously rising PSA up to 8.55, he underwent a prostate biopsy came back positive with one core positive Lavina six low grade cancer low-volume disease. Workup with bone scan was negative work workup with CAT scan was negative but on the CAT scan he is also found to have a very large bladder stone about 3 cm in size, also has a left ureteral stone, and a very large obstructive prostate. ALLERGIES: Tetracycline MEDICATIONS: Flomax 0.4 mg capsule 1 capsule PO Q HS Atenolol 25 mg tablet 1 tablet PO Daily Atorvastatin Calcium 20 mg tablet 1 tablet PO Daily Ciprofloxacin Hcl 500 mg tablet 1 tablet PO Daily Hydrochlorothiazide 12.5 mg capsule 1 capsule PO Daily PAST SURGICAL HISTORY: Prostate Needle Biopsy - 04/12/2023 Remove Kidney Stone - 2001 Shoulder Surgery (Unspecified) - 2017 Transrectal Biopsy US - 04/12/2023 PAST MEDICAL HISTORY: Elevated prostate specific antigen [PSA] - 04/12/2023, - 03/15/2023 Bronchitis, not specified as acute or chronic Frequency of micturition Hyperlipidemia, unspecified Nocturia Secondary hypertension, unspecified Immunizations: None FAMILY HISTORY: Lung Cancer - Father SOCIAL HISTORY: Marital Status: Preferred Language: Scottish; Race: White Current Smoking Status: Patient has never smoked. Tobacco Use Assessment Completed: Used Tobacco in last 30 days? Smoking cessation counseling was provided. Does not use smokeless tobacco. Drinks 4 drinks per month. Types of alcohol consumed: Beer. Social Drinker. Does not use drugs. Drinks 1 caffeinated drink per day. Has not had a blood transfusion. REVIEW OF SYSTEMS: Constitutional: Patient denies fever, chills, weight loss, and weight gain. Eyes: Patient denies glaucoma, cataracts, and blurry vision. Ears, Nose, Mouth, Throat: Patient denies hearing loss, sinus infections, and sleep apnea. Cardiovascular: Patient denies chest pains, swollen ankles, irregular heartbeat, and pacemaker/defib. Respiratory: Patient denies shortness of breath, wheezing, oxygen, and cpap machine. Gastrointestinal: Patient denies abdominal pain, diarrhea, constipation, nausea, and vomiting. Genitourinary: Patient denies frequent urination, urinary retention, get up at night to void, urinary incontinence, painful urination, blood in the urine, frequent uti's, history of stones, difficulty starting stream, weak stream/scanty, and bedwetting. Musculoskeletal: Patient denies sore muscles, back pain, and gout. Integumentary/Skin: Patient denies rash, skin cancer, and chronic itching. Neurological: Patient denies falling/unsteady, paralysis, and stroke/tia. Hematologic/Lymphatic: Patient denies abnormal bleeding, blood transfusion, swollen lymph nodes, deep venous thrombosis, and pulmonary embolism. VITAL SIGNS: 05/08/2023 03:57 PM Weight 180 lb / 81.65 kg Height 65 in / 165.1 cm BP 136/78 mmHg BMI 30.0 kg/m? - BMI Counseling was provided. PHYSICAL EXAM: Constitutional: Well-nourished. No physical deformities. Normally developed. Good grooming. Neck: Neck symmetrical, not swollen. Normal tracheal position. Respiratory: No labored breathing, no use of accessory muscles. Cardiovascular: Normal temperature, normal extremity pulses, no swelling, no varicosities. Lymphatic: No enlargement of neck, axillae, groin. Skin: No paleness, no jaundice, no cyanosis. No lesion, no ulcer, no rash. Neurologic / Psychiatric: Oriented to time, oriented to place, oriented to person. No depression, no anxiety, no agitation. Gastrointestinal: No mass, no tenderness, no rigidity, non obese abdomen. Eyes: Normal conjunctivae. Normal eyelids. Ears, Nose, Mouth, and Throat: Left ear no scars, no lesions, no masses. Right ear no scars, no lesions, no masses. Nose no scars, no lesions, no masses. Normal hearing. Normal lips. Musculoskeletal: Normal gait and station of head and neck. Complexity of Data: Source Of History: Patient Records Review: Previous Doctor Records, Previous Patient Records Urine Test Review: Urinalysis 03/16/23 03/15/23 01/22/23 12/15/22 PSA Total PSA 8.55 ng/mL 8.55 ng/mL 7.3 4.38 Free PSA 0.94 % Free PSA 12.9 Notes [facility] [address] [place], [address] This test was performed using the TPSA assay method for the [employer] system. Values obtained with different assay methods cannot be used interchangably. When changing PSA assays in the course of monitoring a patient, additional sequential testing should be carried out to confirm baseline values. [facility] [address] [place], [address] This test was performed using the TPSA assay method for the [employer] system. Values obtained with different assay methods cannot be used interchangably. When changing PSA assays in the course of monitoring a patient, additional sequential testing should be carried out to confirm baseline values. PROCEDURES: None ASSESSMENT: ICD-10 Details 1 Benign prostatic hyperplasia with lower urinary tract symptoms - N40.1 Acute, Systemic Symptoms 2 Elevated prostate specific antigen [PSA] - R97.20 Acute, Systemic Symptoms 3 Calculus in bladder - N21.0 Acute, Systemic Symptoms 4 Calculus of ureter - N20.1 Left, Acute, Systemic Symptoms 5 Malignant neoplasm of prostate - C61 Acute, Systemic Symptoms PLAN: Medications Stop Meds: Fleet Enema 1 kit MO once Administer one hour prior to procedure Start: 03/15/2023 Discontinue: 05/08/2023 - Reason: The medication cycle was completed. Document Letter(s): Created for Patient: Clinical Summary Notes: 58-year-old male found out prostate cancer, bladder stone, ureteral stone, large obstructive prostate. Recommend that we proceed with active surveillance for his prostate cancer, I'm to set him up for laser surgery on his bladder stone to remove the bladder stone and were also can go up and laser the stone in the ureter he might need a stent in the left side and after that will finish up with the TURP to shave the prostate open. And then will continue with active surveillance after the surgery with PSA's starting every four months and will workup every six months afterwards explain to the patient and his does possible we may need to eventually treat his prostate cancer but for now will continue with active surveillance.
[2023-06-15] MEDS: Lactated Ringers 1,000 ML 15 ML IV (07:30)
[2023-06-15] MEDS: Cefazolin 2 GM in 0.9% Normal Saline (100mL Bag) 100 ML IV (08:29)
--- NOTE | 2023-06-15 08:35 | DCINST_ITS ---
Discharge Instructions Diet Discharge Diet: No restrictions Activity Discharge Activity: Return to Normal Activity and May Not Drive (while taking narcotic pain medications.) Dressing / Incision Call your doctor if you observe: Fever of 101 or Higher Follow Up Care Please Follow Up With: Thuan Rainey MD When: Call [phone] for an appointment Test Results: Test results from this visit will be discussed in further detail at your follow- up appointment, if applicable. Discharge Plan Admission Primary Reason for Your Visit: turp laser stones Attending Provider: Thuan Rainey Primary Care Provider: Charli Michelle Discharge Orders/Prescriptions Prescriptions: New ciprofloxacin HCl [Cipro] 500 mg tablet 500 mg PO BID Qty: 10 0RF Continued atenolol 25 MG tablet 25 mg PO DAILY hydrochlorothiazide 12.5 MG capsule 12.5 mg PO DAILY omeprazole magnesium 20 MG tablet,delayed release (DR/EC) 20 mg PO PRN PRN (Reason: GERD) atorvastatin 20 MG tablet 20 mg PO QHS tamsulosin 0.4 mg capsule 0.4 mg PO QHS Referrals / Follow Up: Charli Michelle MD [Primary Care Provider] - Thuan Rainey MD [Med Staff - Active Staff] - Disposition Disposition (needs filled in before D/C Order can be placed): Home, Self Care
--- NOTE | 2023-06-15 08:55 | PROS_PTH ---
PATIENT: EVERETT BRANDON LOC: [facility] U#:[id number] AGE/SX: 58/M ROOM: FL319 RE06/15/[address]: Dr. Thuan Rainey MD : 1965 BED: 1 DIS: 06/16/2023 SPEC #: [id number] RECD: 06/15/23 14:03 STATUS: JEFF SHEEHAN #: [id number] MOOK: 06/15/23 08:[address]: Thuan Rainey DEPT: SURGICAL PATHOLOGY RECD BY: Kingston Rai ENTERED: 06/18/23 07:46 SP TYPE: TURP OTHR DR: Dr. Charli Michelle MD Tissues: Prostate, NOS Procedures: Surgery Specimen Level IV HEADER OPERATION: Cysto, ureteroscopy, litholapaxy PRE-OP DIAGNOSIS: BPH with lower urinary tract symptoms, elevated PSA, calculus in bladder and ureter, malignant neoplasm of prostate TISSUE SUBMITTED: Prostate tissue MICROSCOPIC DIAGNOSIS Prostate, transurethral resection: Benign nodular hyperplasia, glandular and stromal types. Chronic inflammation. AM:ashley 06/19/2023 COMMENT Reference is made to the patient's previous prostate needle core biopsies from the left base ([id number]) in which Bowman grade 6 (3+3) adenocarcinoma was identified. MICROSCOPIC DESCRIPTION Slides are reviewed. GROSS DESCRIPTION Received is one container labeled with the patient's name and designated prostate tissue. The specimen consists of multiple irregular fragments of pink-ventura, rubbery, soft tissue mixed with brown stones and stone fragments that in aggregate weigh 9.8 gm and measure in aggregate 6.0 x 4.0 x 1.5 cm. The stones measure <0.1 to 0.5 cm in greatest dimension. The entire soft tissue is submitted in six cassettes. / SJ:ashley 06/18/2023 TC:3 CPT: 52569
--- NOTE | 2023-06-15 10:05 | PCM.OPRPT ---
Report of Operation Date of Procedure: 06/15/23 Pre-Operative Diagnosis: Bladder stone and left ureteral calculi and BPH with obstruction Post-Operative Diagnosis: The same Surgery/Procedure Performed:: Cystoscopy, left ureteroscopy laser lithotripsy, cystolitholapaxy of a very large bladder stone, no stent, transurethral resection of the prostate, balloon dilation of the left ureter Description of Surgical Findings:: Patient was taken back to the operating room at the smooth induction of general anesthesia he was placed in dorsolithotomy position. The penis and testicles were prepped and draped in usual sterile fashion went into the bladder with a 21 [place] rigid cystourethroscope, I then cannulated the left ureter with a Glidewire balloon dilated to the left ureter then went in with a semirigid ureteroscope small stone was then lasered little tiny pieces all the pieces then came into the bladder, no stent was placed and I went back into the bladder and used a large 1000 ?m laser fiber and lasered the bladder stone into little tiny pieces this took about 45 minutes. Then after this I changed over to the resectoscope went back into the bladder with a 24 [place] noncontinuous flow resectoscope once inside the bladder I then pulled back identify the right and left ureteral orifice of identify the bladder neck he had an obstructive prostate but no median lobe identified the verumontanum and then marked out my resection site from the bladder neck to the verumontanum and also the anterior part of the prostate I then resected the at the 12 o'clock position and then I resected the 6 o'clock position I then resected the right lobe of the prostate resected left lobe the prostate made sure that there was good apical tissue was very carefully resected apical tissue had a nice wide open channel from the verumontanum into the bladder neck with no obstruction I then used the button to smooth out the resection obtain good hemostasis and then after the resection was done it was a complete resection of the prostate I then placed a 22 [place] catheter into the bladder and filled the balloon with 30 cc balloon there was started on continuous bladder irrigation will be kept overnight for observation and then will take the catheter out tomorrow morning for voiding trial. Surgeon: Thuan Rainey Type of Anesthesia: General Drains: 22fr [address] way Admit VTE Documentation VTE Present on Admission: No VTE Mechan Device Prophylaxis: SCD's VTE Pharm Prophylaxis ordered?: No
[2023-06-15] MEDS: 0.9% Normal Saline (1000mL) 1,000 ML 125 ML IV ×2 (11:51→20:07)
[2023-06-15] MEDS: Ciprofloxacin 400 MG/200 ML BAG 200 MG IV ×2 (12:11→21:54)
[2023-06-15] MEDS: HYDROcodone Bitartrate/Apap 5/325 Tablet PO ×2 (13:12→20:06)
[2023-06-15] MEDS: Docusate Sodium 100 MG Capsule 200 MG PO (21:54)
[2023-06-15] MEDS: Tamsulosin HCl 0.4 MG Capsule PO (21:54)
[2023-06-15] MEDS: Atorvastatin Calcium 20 MG Tablet PO (21:54)
[2023-06-16 03:02] VITALS: BP 116/69; PULSE 73; RESP 16; TEMP 36.6; O2SAT 96
[2023-06-16 04:30] VITALS: O2SAT 97
[2023-06-16] MEDS: 0.9% Normal Saline (1000mL) 1,000 ML 125 ML IV (04:49)
[2023-06-16] MEDS: HYDROcodone Bitartrate/Apap 5/325 Tablet PO (04:59)
--- NOTE | 2023-06-16 07:38 | PCM.PN.GU ---
Subjective Subjective Status post transurethral resection of the prostate urine is crystal clear we can DC the Black this morning and discharged home. Objective Data Objective Data Vital Signs: Vital Signs Temp Pulse Resp BP Pulse Ox O2 Del Method 97.9 F 73 16 116/69 97 Room Air 06/16/23 03:02 06/16/23 03:02 06/16/23 03:02 06/16/23 03:02 06/16/23 04:30 06/16/23 04:30 Oxygen Delivery Method Room Air Weight: 85.1 kg Body Mass Index (BMI) 31.2 Intake & Output: Intake and Output for Last 24 Hours 06/14/23 06/15/23 06/16/23 23:59 23:59 23:59 Intake Total 2348.25 / 2348.25 3500 / 3500 Output Total 100 / 100 Balance 2248.25 / 2248.25 3500 / 3500 Lab / Micro Data 06/06/23 14:10
[2023-06-16 08:57] VITALS: BP 118/76; PULSE 67; RESP 18; TEMP 36.6; O2SAT 96
[2023-06-16] MEDS: Atenolol 25 MG Tablet PO (09:00)
[2023-06-16] MEDS: Docusate Sodium 100 MG Capsule 200 MG PO (09:00)
[2023-06-16] MEDS: hydroCHLOROthiazide 12.5mg 12.5 MG PO (09:00)
== END 2023-06-16 10:30 | disposition home or self-care (01) ==
LOC: SDC 08:42 → MS3 08:42
PROVIDERS: Anesthesiology; Admitting Provider Urology; PCP Family Medicine; Referring Provider Urology; Visit Provider Urology
PROC: (CPT 52353; principal; 2023-06-15 08:45)
PROC: (CPT 52601; 2023-06-15 08:45)
DX: N40.1 Benign prostatic hyperplasia with lower urinary tract symptoms (principal); C61 Malignant neoplasm of prostate; N20.1 Calculus of ureter; E78.00 Pure hypercholesterolemia, unspecified; Z79.899 Other long term (current) drug therapy; R35.1 Nocturia; R35.0 Frequency of micturition; I10 Essential (primary) hypertension; N21.0 Calculus in bladder; K21.9 Gastro-esophageal reflux disease without esophagitis
CPT/HCPCS: 52601; 52318; 52353; 52344; 36415; 80048; 88305; 93005; 94668; 96361; 96365; 96366; 99221; J7030; J7120; C1769; G0378; J0744; J2405

== ENCOUNTER → 2023-10-26 | Outpatient (CLI) | payer OTHER, SELFPAY ==
--- OUTSIDE RECORDS SUMMARY | 2023-10-26 06:03 | XMS RPT_ITS | CCD ---
Author Name Unknown Address [address] [place] [address] Organization [facility] Care Team Providers Care Recruiting Consultant Name Role Phone Charli Michelle Primary Care Provider Allergies Allergy Classification Reported Allergen(s) Allergy Type Date of Onset Reaction(s) Facility (1 source) Tetracycline Drug Allergy 12-12-2005 [facility] Work Phone: Medications Completed/Discontinued Medications Medication Drug Class(es) Dates Sig (Normalized) Sig (Original) atenolol 25 mg oral tablet (1 source) beta-Adrenerg ic Mildred Start: 2 atenolol (TENORMIN) 25 mg tablet atorvastatin 20 mg oral tablet (1 source) HMG-CoA Reductase Inhibitor Start: 2 atorvastatin (LIPITOR) 20 mg tablet hydroCHLOROthiazide 12.5 mg oral capsule (1 source) Thiazide Diuretic Start: 9 hydroCHLOROthiazide 12.5 mg capsule Hydrochlorothiazide Active 12.5 MG DAILY March 17, 2019 9:20am 0 03/17/2019 Active Problems Active Problems Problem Classification Problem Date Documented Da te Episodic/Chronic Blindness and vision defects (3 sources) Bilateral myopia of eyes; Translations: [Myopia, bilateral] Episodic Glaucoma (1 source) 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; Translations: [Preglaucoma, unspecified, left eye] Onset: 05-09-2018 05-09-2018 Chronic Past or Other Problems Problem Classification Problem Date Documented Date Episodic/Chronic Hemorrhoids (1 source) External hemorrhoids; Translations: [Residual hemorrhoidal skin tags] Onset: 01-15-2006 01-15-2006 Episodic Other and unspecified benign neoplasm (1 source) Benign neoplasm of colon; Translations: [Benign neoplasm of colon, unspecified] Onset: 01-15-2006 01-15-2006 Episodic Residual codes; unclassified (1 source) Family history of malignant neoplasm of gastrointestinal tract; Translations: [Family history of malignant neoplasm of digestive organs] Onset: 01-15-2006 01-15-2006 Episodic Encounters Encounter Date Encounter Type Care Provider Facility Start: 12-06-2021 End: 12-06-2021 Patient encounter procedure Daniel Jerry OD Work Phone: Optometry Plan of Treatment Date Care Activity Detail Author Start: 05-18-2021 Influenza vaccination INFLUENZA (#1) [facility] Start: 2018 PROSTATE CANCER SCRE ENING DISCUSSION PROSTATE CANCER SCREENING DISCUSSION [facility] Start: 2013 SHINGRIX VACCINE (1 of 2) SHINGRIX V ACCINE (1 of 2) [facility] Start: 2008 COLOGUARD (FIT-DNA) COLOGUARD (FIT-D NA) [facility] Start: 2008 Colonoscopy COLONOSCOPY [facility] Start: 2008 COLORECTAL CANCER SCREENING COLORECTAL CANCER SCREENING [facility] Start: [address] COLONOGRAPHY [facility] Start: 2008 DIABETES SCREEN DIABETES SCREEN [facility] Start: 2008 FECAL OCCULT BLOOD FECAL OCCULT BLOO D [facility] Start: 2008 SIGMOIDOSCOPY SIGMOIDOSCOPY [facility] Start: 1998 LIPID SCREEN LIPID SCREEN [facility] Start: 1982 Urine microalbumin profile DTAP,TDAP ,TD (1 - Tdap) [facility] Start: 1981 HEPATITIS C SCREENING HEPATITIS C SC REENING [facility] Start: 1981 HIV SCREENING HIV SCREENING [facility] Start: 1975 Adult depression scr ning assessment DEPRESSION SCREENING [facility] Start: 1968 COVID-19 VACCINE (1) COVID-19 VACCIN E (1) [facility] Payers Date Payer Category Payer Unknown [id number] 2021-Present [id number] [place] [address] Indemnity [id number] Social History Date Type Detail Facility Tobacco smoking stat us TXIS Never smoked tobacco [facility] Start: 12-06-2021 Alcohol intake Current drinke r of alcohol (finding) [facility] Start: 1965 Sex Assigned At Not on file [facility] Start: 11-26-2021 End: 12-06-2021 Exposure to SARS-CoV-2 (event) Not sure [facility] Progress note 12-06-2021 Note Date & Type Note Facility 12-06-2021 Note HNO ID: [id number] Author: Daniel Jerry II, OD Service: ? Author Type: COMPANION Type: Progress Notes Filed: 12/06/2021 4:50 PM Note Text: Assessment and Plan H52.13 Myopia, bilateral (primary encounter diagnosis) H52.223 Regular astigmatism, bilateral H52.4 Presbyopia Comment: Glasses power stable. Update 4 yo glasses as desired. Ocular health stable. I have confirmed and edited as necessary the relevant ophthalmic history, ROS, and the neuro exam findings as obtained by others. I have seen and examined Everett Singleton. I have discussed the case and the management of this patient's care with the Resident/Fellow, if applicable. I also have reviewed and agree with the assessment and plan as stated above and agree with all of its relevant components. Daniel Jerry II, OD [facility] Instructions 12-06-2021 Patient Instructions Note Date & Type Note Facility 12-06-2021 Instructions Daniel Jerry II OD - 12/06/2021 4:50 PM EDT Assessment and Plan H52.13 Myopia, bilateral (primary encounter diagnosis) H52.223 Regular astigmatism, bilateral H52.4 Presbyopia Comment: Glasses power stable. Update 4 yo glasses as desired. Ocular health stable. I have confirmed and edited as necessary the relevant ophthalmic history, ROS, and the neuro exam findings as obtained by others. I have seen and examined Everettlolita Whipple Areli. I have discussed the case and the management of this patient's care with the Resident/Fellow, if applicable. I also have reviewed and agree with the assessment and plan as stated above and agree with all of its relevant components. Daniel Jerry II, OD documented in this encounter [facility] History of Present illness Narrative 12-06-2021 Daniel Jerry II, OD - 12/06/2021 4:48 PM EDT Note Date & Type Note Facility 12-06-2021 History of Presen t illness Narrative Assessment and Plan H52.13 Myopia, bilateral (primary encounter diagnosis) H52.223 Regular astigmatism, bilateral H52.4 Presbyopia Comment: Glasses power stable. Update 4 yo glasses as desired. Ocular health stable. I have confirmed and edited as necessary the relevant ophthalmic history, ROS, and the neuro exam findings as obtained by others. I have seen and examined Everett Singleton. I have discussed the case and the management of this patient's care with the Resident/Fellow, if applicable. I also have reviewed and agree with the assessment and plan as stated above and agree with all of its relevant components. Daniel Jerry II, OD documented in this encounter [facility] Evaluation note Note Date & Type Note Facility documented in this encounter [facility] Summary Purpose Family History No Family History Records Found Advance Directives No Advanced Directives Records Found Additional Source Comments Source Comments (unrecognize d section and content) In the event this informatio n is protected by the Federal Confidentiality of Alcohol and Drug Abuse Patient Records regulations: The Federal rules restrict any use of the information to criminally investigate or prosecute any alcohol or drug abuse patient.[facility] Reason for Visit (unrecogniz ed section and content) Care Teams (unrecognized sec tion and content) (unrecognized sect ion and content) No Status Records Found INFORMATION SOURCE (unrecogn ized section and content) FOR RECORDS PERTAINING TO PATIENTS WHO ARE OR HAVE BEEN ENROLLED IN A CHEMICAL DEPENDENCY/SUBSTANCEABUSE PROGRAM, SOME INFORMATION MAY BE OMITTED. This clinical summary was aggregated from multiple sources. Caution should be exercised in using it in the provision of clinical care. This summary normalizes information from multiple sources, and as a consequence, information in this document may materially change the coding, format and clinical context of patient data. In addition, data may be omitted in some cases. CLINICAL DECISIONS SHOULD BE BASED ON THE PRIMARY CLINICAL RECORDS. [facility]. provides no warranty or guarantee of the accuracy or completeness of information in this document.
[2023-10-26 07:13] LABS: Absolute Lymphocyte Count 2.31 X10^3/uL (0.83-4.51); Absolute Neutrophil Count 3.4 X10^3/uL (2.0-7.7); Basophil# 0.03 X10^3/uL; Basophil% 0.5 % (0-1); Eosinophil# 0.15 X10^3/uL; Eosinophils% 2.3 % (0-5); Hemoglobin 16.2 g/dL (13.0-16.5); Lymphocyte # 2.31 X10^3/ul (0.83-4.51); Lymphocyte % 34.9 % (19-41); Mean Corp Hgb Conc 34.5 g/dL (32-36); Mean Corpuscular Volume 92.7 fL (80-94); Mean Platelet Vol. 10.7 fl (6.2-12.0); Monocyte# 0.73 X10^3/uL; NRBC Flagged by Analyzer 0 % (0-5); Neutrophil # 3.38 X10^3/uL (2.7-7.7); Neutrophil % 51.1 % (47-70); Platelet Count 229 K/mm3 (150-450); RBC Distribution Width CV 12.6 % (11.6-14.6); RBC Distribution Width SD 42.9 fl (35.1-43.9); Red Blood Count 5.07 M/mm3 (4.6-6.2); White Blood Count 6.6 K/mm3 (4.4-11.0)
[2023-10-26 08:01] LABS: ALB/GLOB Ratio 1.3 RATIO (0.9-2.4); AST(SGOT) 18 U/L (15-37); Alanine Aminotransfer ALT/SGPT 39 U/L (16-61); Alkaline Phosphatase 97 U/L (45-117); Anion Gap 7 (5-15); BUN 14 mg/dL (7-18); BUN/Creat Ratio 16.4 RATIO (10-20); Chloride 108 mmol/L (98-107); Cholesterol 152 mg/dL (200); Creatinine, Serum 0.85 mg/dL (0.70-1.30); EST Glomerular Filtration Rate 97 mL/min (>60); Est Glom Filt Rate - Afr Amer 118 mL/min (>60); Globulin 3.1 g/dL (2.2-4.2); Glucose 98 mg/dL (74-106); High Density Lipoprotein 42 mg/dL; PSA,Total- Diagnostic 1.58 ng/mL (0.0-4.0); Potassium 3.9 mmol/L (3.5-5.1); Protein, Total 7.1 g/dL (6.4-8.2); Sodium Level 142 mmol/L (136-145); Triglycerides 66 mg/dL; Very Low Density Lipoprotein 13 mg/dL (5-40)
[2023-10-26 09:34] LABS: Vitamin D,25 Hydroxy 35.1 ng/mL
== END | disposition home or self-care (01) ==
LOC: LAB 06:00
PROVIDERS: PCP Nurse Practitioner Family; Referring Provider Urology; Visit Provider Urology
DX: I10 Essential (primary) hypertension (principal); C61 Malignant neoplasm of prostate; E78.5 Hyperlipidemia, unspecified; E55.9 Vitamin D deficiency, unspecified
CPT/HCPCS: 36415; 80053; 80061; 82306; 84153; 85025

== ENCOUNTER → 2024-04-29 | Outpatient (CLI) | payer OTHER, SELFPAY ==
[2024-04-29 16:13] LABS: PSA,Total- Diagnostic 1.83 ng/mL (0.0-4.0)
== END | disposition home or self-care (01) ==
LOC: LAB 15:03
PROVIDERS: PCP Nurse Practitioner Family; Referring Provider Urology; Visit Provider Urology
DX: N40.1 Benign prostatic hyperplasia with lower urinary tract symptoms (principal)
CPT/HCPCS: 36415; 84153

== ENCOUNTER → 2025-04-27 | Outpatient (CLI) | payer OTHER, SELFPAY ==
[2025-04-27 17:37] LABS: PSA,Total- Diagnostic 2.04 ng/mL (0.00-4.00)
--- OUTSIDE RECORDS SUMMARY | 2025-04-27 21:24 | XMS RPT_ITS | CCD ---
Author Organization [facility] Care Team Providers Care Scarrer Name Role Phone Charli Michelle Primary Care Provider Dr. Charli Michelle Primary Care Provider [phone]. Maldonado Rodriguez Attending Provider Dr. Thuan Rainey Referring Provider Gabriela BABY [employer] CONSULTANT, Roxy Primary Care Provider [phone] VALENTINA JERRY II Attending Unavailabl e BrigidThuan Referring Unavailable Gabriela Roxy Primary Care Unavailable Brigid, Thuan Bazan Attending Unavailable Brigid, Thuan Bazan Referring Unavailable Gabriela [place] [facility] Unavailable BrigidThuan xiong Attending Unavailable Brigid, Thuan Bazan Attending Unavailable Brigid, Thuan Bazan Referring Unavailable Brigid, Thuan Bazan Admitting Unavailable Charli Michelle Primary Care Unavailable Brigid, Thuan Bazan Referring Unavailable Maldonado Rodriguez Attending Unavailabl e Charli Michelle Primary Care Unavailable Allergies Allergy Classification Reported Allergen(s) Allergy Type Date of Onset Reaction(s) Facility (7 sources) Tetracycline; Translations: [TETRACYCLINE] Drug Allergy 12-12-[address] [facility] Work Phone: (1 source) Tetracycline Drug Allergy 06-15-2023 [facility] Repository Medications Current Medications Medication Drug Class(es) Dates Sig (Normalized) Sig (Original) ciprofloxacin 500 mg oral tablet (2 sources) Quinolone Antimicrobial Start: 06-15-2023 take 1 tablet by mouth twice daily Ciprofloxacin Hcl (Cipro) 500 mg tablet Active 500 MG PO TWICE A DAY June 14, 2023 11:00pm omeprazole 20 mg delayed release oral tablet (4 sources) Proton Pump Inhibitor Start: 03-17-2019 Omeprazole Magnesium Active 20 MG PO NEEDED March 16, 2019 11:00pm tamsulosin hydrochloride 0.4 mg oral capsule (2 sources) alpha-Adrenergic Mildred Start: 06-01-2023 take 0.4 mg by mouth at bedtime Tamsulosin Active 0.4 MG PO AT BEDTIME May 31, 2023 11:00pm tropicamide 5 mg/ml ophthalmic solution (1 source) Anticholinergic Start: 12-19-2023 End: 12-20-2023 tropicamide 0.5 % 1 Drop (MYDRIACYL) Completed/Discontinued Medications Medication Drug Class(es) Dates Sig (Normalized) Sig (Original) atenolol 25 mg oral tablet (6 sources) beta-Adrenergic Mildred Start: atenolol (TENORMIN) 25 mg tablet atorvastatin 20 mg oral tablet (6 sources) HMG-CoA Reductase Inhibitor Start: atorvastatin (LIPITOR) 20 mg tablet hydroCHLOROthiazide 12.5 mg oral capsule (6 sources) Thiazide Diuretic Start: hydroCHLOROthiazide 12.5 mg capsule Hydrochlorothiazide Active 12.5 MG DAILY March 17, 2019 9:20am 0 03/17/2019 Active Comment on above: Hydrochlorothiazide Active 12.5 MG DAILY March 17, 2019 9:20am hydroCHLOROthiazide / Lisinopril (2 sources) Thiazide Diuretic, Angiotensin Converting Enzyme Inhibitor LISINOPRIL-HYDROCHLO R OTHIAZIDE ORAL Take by mouth. 0 Active Comment on above: Take by mouth. 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; Translations: [Preglaucoma, unspecified, left eye] Onset: 05-09-2018 05-09-2018 Chronic Hyperplasia of prostate (1 source) Benign prostatic hyperplasia with lower urinary tract symptoms; Translations: [Benign prostatic hyperplasia with lower urinary tract symptoms] Onset: 05-27-2024 Chronic Other eye disorders (1 source) Bilateral vitreous floaters; Translations: [Other vitreous opacities, bilateral] 12-19-2023 Chronic Retinal detachments; defects; vascular occlusion; and retinopathy (1 source) Bilateral drusen of maculae; 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, bilateral] 12-19-2023 Chronic Past or Other Problems Problem Classification Problem Date Documented Date Episodic/Chronic Hemorrhoids (2 sources) External hemorrhoids; Translations: [Residual hemorrhoidal skin tags] Onset: 01-15-2006 01-15-2006 Episodic Other and unspecified benign neoplasm (2 sources) Benign neoplasm of colon; Translations: [Benign neoplasm of colon, unspecified] Onset: 01-15-2006 01-15-2006 Episodic Residual codes; unclassified (2 sources) Family history of malignant neoplasm of gastrointestinal tract; Translations: [Family history of malignant neoplasm of digestive organs] Onset: 01-15-2006 01-15-2006 Episodic Results Test Name Value Interpretation Reference Range Facility PSA,Total- Diagnosticon 04-17 PSA, DIAGNOSTIC 1.83 ng/mL Normal 0.0-4.0 [facility] Comment on above: Result Comment: This test was performed using the TPSA assay method for the [employer] chemistry system. Values obtained with different assay methods cannot be used interchangably. When changing PSA assays in the course of monitoring a patient, additional sequential testing should be carried out to confirm baseline values. Performed By: #### L 501.9940 #### [facility] [address] [place], [address] Absolute lymphocyte countOrd ered By: Thuan Rainey on 10-26-2023 Lymphocytes Auto (Unsp spec) [#/Vol] 2.31 10*3/uL 0.83-4.51 [facility] Automated lymphocyte count a s percentage of total leukocytesOrdered By: Thuan Rainey on 10-26-2023 Lymphocytes/100 WBC Auto (Unsp spec) 34.9 % 19-41 [facility] Basophil percentageOrdered B y: Thuan Rainey on 10-26-2023 Basophil percentage 1.58 ng/mL 0.0-4.0 [facility] Comment on above: This test was perfor med using the TPSA assay method for [employer] chemistry system. Values obtained with differentassay methods cannot be used interchangably.When changing PSA assays in the course of monitoring apatient, additional sequential testing should be carriedout to confirm baseline values. Basophils/100 WBC (Bld) 0.5 % 0-1 [facility] Bilirubin [Mass/Vol] 0.70 mg/dL 0.20-1.00 [facility] Comment on above: For patients on eltr ombopag therapy, use of Dimension Gray TBIL is not recommended. Chloride [Moles/Vol] 108 mmol/L 98-107 [facility] Cholesterol [Mass/Vol] 152 mg/dL <200 [facility] Comment on above: <200 mg/dL Desirable 200-240 mg/dL Borderline >240 mg/dL High Risk Eosinophils/100 WBC (Bld) 2.3 % 0-5 [facility] Glucose [Mass/Vol] 98 mg/dL 74-106 [facility] Hemoglobin (Bld) [Mass/Vol] 16.2 g/dL 13.0-16.5 [facility] Monocytes/100 WBC (Bld) 11.0 % 0-[address] [facility] Neutrophils (Bld) [#/Vol] 3.4 10*3/uL 2.0-7.7 [facility] Neutrophils/100 WBC (Bld) 51.1 % 47-70 [facility] Potassium [Moles/Vol] 3.9 mmol/L 3.5-5.1 [facility] Protein [Mass/Vol] 7.1 g/dL 6.4-8.2 [facility] Sodium [Moles/Vol] 142 mmol/L 136-145 [facility] Triglyceride [Mass/Vol] 66 mg/dL <199 [facility] Comment on above: The drugs N-Acetylcy steine and Metamizole may falsely depress this assay.Serum Triglycerides Reference Interval Normal <150 mg/dL Borderline high 150 - 199 mg/dL High 200 - 499 mg/dL Very High > or = 500 mg/dL WBC (Bld) [#/Vol] 6.6 10*3/uL 4.4-11.0 [facility] CBC W/Diff, Automatedon 020 Absolute Lymph 2.31 X10 3/uL Normal 0.83-4.51 [facility] Comment on above: Order Comment: PROAN O PSAD GABRIELA LIPID VITD PSAD CMP CBCD Performed By: #### L 501.9940, L500.4050, L500.4100, L100.0100, L506.1000 #### [facility] [address] [place], [address] Absolute Neut 3.4 X10 3/uL Normal 2.0-7.7 [facility] Comment on above: Order Comment: PROAN O PSAD GABRIELA LIPID VITD PSAD CMP CBCD Performed By: #### L 501.9940, L500.4050, L500.4100, L100.0100, L506.1000 #### [facility] [address] [place], [address] Basophils/100 WBC (Bld) 0.5 % Normal 0-1 [facility] Comment on above: Order Comment: PROAN O PSAD GABRIELA LIPID VITD PSAD CMP CBCD Performed By: #### L 501.9940, L500.4050, L500.4100, L100.0100, L506.1000 #### [facility] [address], [address] Eosinophils/100 WBC (Bld) 2.3 % Normal 0-5 [facility] Comment on above: Order Comment: PROAN O PSAD GABRIELA LIPID VITD PSAD CMP CBCD Performed By: #### L 501.9940, L500.4050, L500.4100, L100.0100, L506.1000 #### [facility] [address] [place], [address] Erythrocyte distribution width (RBC) [Ratio] 12.6 % Normal 11.6-14.6 [facility] Comment on above: Order Comment: PROAN O PSAD GABRIELA LIPID VITD PSAD CMP CBCD Performed By: #### L 501.9940, L500.4050, L500.4100, L100.0100, L506.1000 #### [facility] [address] [place], [address] Hematocrit (Bld) [Volume fraction] 47.0 % Normal 40-54 [facility] Comment on above: Order Comment: PROAN O PSAD GABRIELA LIPID VITD PSAD CMP CBCD Performed By: #### L 501.9940, L500.4050, L500.4100, L100.0100, L506.1000 #### [facility] [address] [place], [address] Hemoglobin (Bld) [Mass/Vol] 16.2 g/dL Normal 13.0-16.5 [facility] Comment on above: Order Comment: PROAN O PSAD GABRIELA LIPID VITD PSAD CMP CBCD Performed By: #### L 501.9940, L500.4050, L500.4100, L100.0100, L506.1000 #### [facility] [address] [place], [address] IG% 0.200 Normal 0.0-0.9 [facility] Comment on above: Order Comment: PROAN O PSAD GABRIELA LIPID VITD PSAD CMP CBCD Result Comment: IG% - Immature Granulocytes (promyelocytes, myelocytes and metamyelocytes) > 1% indicates that a LEFT SHIFT is Present. Performed By: #### L 501.9940, L500.4050, L500.4100, L100.0100, L506.1000 #### [facility] [address] [place], [address] Lymphocytes/100 WBC (Bld) 34.9 % Normal 19-41 [facility] Comment on above: Order Comment: PROAN O PSAD GABRIELA LIPID VITD PSAD CMP CBCD Performed By: #### L 501.9940, L500.4050, L500.4100, L100.0100, L506.1000 #### [facility] [address] [place], [address] MCH (RBC) [Entitic mass] 32.0 pg Normal 27.0-32.0 [facility] Comment on above: Order Comment: PROAN O PSAD GABRIELA LIPID VITD PSAD CMP CBCD Performed By: #### L 501.9940, L500.4050, L500.4100, L100.0100, L506.1000 #### [facility] [address] [place], [address] MCHC (RBC) [Mass/Vol] 34.5 g/dL Normal 32-36 [facility] Comment on above: Order Comment: PROAN O PSAD GABRIELA LIPID VITD PSAD CMP CBCD Performed By: #### L 501.9940, L500.4050, L500.4100, L100.0100, L506.1000 #### [facility] [address] [place], [address] MCV (RBC) [Entitic vol] 92.7 fL Normal 80-[address] [facility] Comment on above: Order Comment: PROAN O PSAD GABRIELA LIPID VITD PSAD CMP CBCD Performed By: #### L 501.9940, L500.4050, L500.4100, L100.0100, L506.1000 #### [facility] [address] [place], [address] Monocytes/100 WBC (Bld) 11.0 % High 0-[address] [facility] Comment on above: Order Comment: PROAN O PSAD GABRIELA LIPID VITD PSAD CMP CBCD Performed By: #### L 501.9940, L500.4050, L500.4100, L100.0100, L506.1000 #### [facility] [address] [place], [address] Neutrophils/100 WBC (Bld) 51.1 % Normal 47-70 [facility] Comment on above: Order Comment: PROAN O PSAD GABRIELA LIPID VITD PSAD CMP CBCD Performed By: #### L 501.9940, L500.4050, L500.4100, L100.0100, L506.1000 #### [facility] [address] [place], [address] Nucleated RBC (Bld) [#/Vol] 0 10*3/uL Normal 0-5 [facility] Comment on above: Order Comment: PROAN O PSAD GABRIELA LIPID VITD PSAD CMP CBCD Performed By: #### L 501.9940, L500.4050, L500.4100, L100.0100, L506.1000 #### [facility] [address] [place], [address] Platelet mean volume (Bld) [Entitic vol] 10.7 fL Normal 6.2-12.0 [facility] Comment on above: Order Comment: PROAN O PSAD GABRIELA LIPID VITD PSAD CMP CBCD Performed By: #### L 501.9940, L500.4050, L500.4100, L100.0100, L506.1000 #### [facility] [address] [place], [address] Platelets (Bld) [#/Vol] 229 10*3/uL Normal 150-450 [facility] Comment on above: Order Comment: PROAN O PSAD GABRIELA LIPID VITD PSAD CMP CBCD Performed By: #### L 501.9940, L500.4050, L500.4100, L100.0100, L506.1000 #### [facility] [address] [place], [address] RBC (Bld) [#/Vol] 5.07 10*6/uL Normal 4.6-6.2 [facility] Comment on above: Order Comment: PROAN O PSAD GABRIELA LIPID VITD PSAD CMP CBCD Performed By: #### L 501.9940, L500.4050, L500.4100, L100.0100, L506.1000 #### [facility] [address] [place], [address] RDW SD 42.9 fl Normal 35.1-43.9 [facility] Comment on above: Order Comment: PROAN O PSAD GABRIELA LIPID VITD PSAD CMP CBCD Performed By: #### L 501.9940, L500.4050, L500.4100, L100.0100, L506.1000 #### [facility] [address] [place], [address] WBC (Bld) [#/Vol] 6.6 10*3/uL Normal 4.4-11.0 [facility] Comment on above: Order Comment: PROAN O PSAD GABRIELA LIPID VITD PSAD CMP CBCD Performed By: #### L 501.9940, L500.4050, L500.4100, L100.0100, L506.1000 #### [facility] [address] [place], [address] Comprehensive Metabolic Prof ilon 10-26-2023 Albumin [Mass/Vol] 4.0 g/dL Normal 3.2-5.0 [facility] Comment on above: Order Comment: PROAN O PSAD GABRIELA LIPID VITD PSAD CMP CBCD Performed By: #### L 501.9940, L500.4050, L500.4100, L100.0100, L506.1000 #### [facility] [address] [place], [address] Albumin/Globulin [Mass ratio] 1.3 {ratio} Normal 0.9-2.4 [facility] Comment on above: Order Comment: PROAN O PSAD GABRIELA LIPID VITD PSAD CMP CBCD Performed By: #### L 501.9940, L500.4050, L500.4100, L100.0100, L506.1000 #### [facility] [address] [place], [address] ALK P 97 U/L Normal 45-117 [facility] Comment on above: Order Comment: PROAN O PSAD GABRIELA LIPID VITD PSAD CMP CBCD Performed By: #### L 501.9940, L500.4050, L500.4100, L100.0100, L506.1000 #### [facility] [address] [place], [address] ALT [Catalytic activity/Vol] 39 U/L Normal 16-61 [facility] Comment on above: Order Comment: PROAN O PSAD GABRIELA LIPID VITD PSAD CMP CBCD Performed By: #### L 501.9940, L500.4050, L500.4100, L100.0100, L506.1000 #### [facility] [address] [place], [address] AST [Catalytic activity/Vol] 18 U/L Normal 15-37 [facility] Comment on above: Order Comment: PROAN O PSAD GABRIELA LIPID VITD PSAD CMP CBCD Performed By: #### L 501.9940, L500.4050, L500.4100, L100.0100, L506.1000 #### [facility] [address] [place], [address] Bilirubin [Mass/Vol] 0.70 mg/dL Normal 0.20-1.00 [facility] Comment on above: Order Comment: PROAN O PSAD GABRIELA LIPID VITD PSAD CMP CBCD Result Comment: For patients on eltrombopag therapy, use of Dimension Gray TBIL is not recommended. Performed By: #### L 501.9940, L500.4050, L500.4100, L100.0100, L506.1000 #### [facility] [address] [place], [address] BUN/CRE 16.4 RATIO Normal 10-20 [facility] Comment on above: Order Comment: PROAN O PSAD GABRIELA LIPID VITD PSAD CMP CBCD Performed By: #### L 501.9940, L500.4050, L500.4100, L100.0100, L506.1000 #### [facility] [address] [place], [address] CA,Total 9.0 mg/dL Normal 8.5-10.1 [facility] Comment on above: Order Comment: PROAN O PSAD GABRIELA LIPID VITD PSAD CMP CBCD Performed By: #### L 501.9940, L500.4050, L500.4100, L100.0100, L506.1000 #### [facility] [address] [place], [address] Chloride [Moles/Vol] 108 mmol/L High 98-107 [facility] Comment on above: Order Comment: PROAN O PSAD GABRIELA LIPID VITD PSAD CMP CBCD Performed By: #### L 501.9940, L500.4050, L500.4100, L100.0100, L506.1000 #### [facility] [address] [place], [address] CO2 [Moles/Vol] 27.0 mmol/L Normal 21.0-32.0 [facility] Comment on above: Order Comment: PROAN O PSAD GABRIELA LIPID VITD PSAD CMP CBCD Performed By: #### L 501.9940, L500.4050, L500.4100, L100.0100, L506.1000 #### [facility] [address] [place], [address] Creatinine [Mass/Vol] 0.85 mg/dL Normal 0.70-1.30 [facility] Comment on above: Order Comment: PROAN O PSAD GABRIELA LIPID VITD PSAD CMP CBCD Result Comment: The validity of the calculated GFR GFRAA in patients over 70 years has not been determined. Clinical correlation is essential. Performed By: #### L 501.9940, L500.4050, L500.4100, L100.0100, L506.1000 #### [facility] [address] [place], [address] EST GFR - AA 118 mL/min Normal >60 [facility] Comment on above: Order Comment: PROAN O PSAD GABRIELA LIPID VITD PSAD CMP CBCD Result Comment: Afri can [place]ian GFR Calc Performed By: #### L 501.9940, L500.4050, L500.4100, L100.0100, L506.1000 #### [facility] [address] [place], [address] GAP 7 Normal 5-15 [facility] Comment on above: Order Comment: PROAN O PSAD GABRIELA LIPID VITD PSAD CMP CBCD Performed By: #### L 501.9940, L500.4050, L500.4100, L100.0100, L506.1000 #### [facility] [address] [place], [address] GFR/1.73 sq M.predicted among non-blacks MDRD (S/P/Bld) [Vol rate/Area] 97 mL/min/{1.73_m2} Normal >60 [facility] Comment on above: Order Comment: PROAN O PSAD GABRIELA LIPID VITD PSAD CMP CBCD Result Comment: Non- GFR Calc Performed By: #### L 501.9940, L500.4050, L500.4100, L100.0100, L506.1000 #### [facility] [address] [place], [address] Globulin (S) [Mass/Vol] 3.1 g/dL Normal 2.2-4.[address] [facility] Comment on above: Order Comment: PROAN O PSAD GABRIELA LIPID VITD PSAD CMP CBCD Performed By: #### L 501.9940, L500.4050, L500.4100, L100.0100, L506.1000 #### [facility] [address] [place], [address] Glucose [Mass/Vol] 98 mg/dL Normal 74-106 [facility] Comment on above: Order Comment: PROAN O PSAD GABRIELA LIPID VITD PSAD CMP CBCD Performed By: #### L 501.9940, L500.4050, L500.4100, L100.0100, L506.1000 #### [facility] [address] [place], [address] Potassium [Moles/Vol] 3.9 mmol/L Normal 3.5-5.1 [facility] Comment on above: Order Comment: PROAN O PSAD GABRIELA LIPID VITD PSAD CMP CBCD Performed By: #### L 501.9940, L500.4050, L500.4100, L100.0100, L506.1000 #### [facility] [address] [place], [address] Sodium [Moles/Vol] 142 mmol/L Normal 136-145 [facility] Comment on above: Order Comment: PROAN O PSAD GABRIELA LIPID VITD PSAD CMP CBCD Performed By: #### L 501.9940, L500.4050, L500.4100, L100.0100, L506.1000 #### [facility] [address], [address] T PROT 7.1 g/dL Normal 6.4-8.2 [facility] Comment on above: Order Comment: PROAN O PSAD GABRIELA LIPID VITD PSAD CMP CBCD Performed By: #### L 501.9940, L500.4050, L500.4100, L100.0100, L506.1000 #### [facility] [address] [place], [address] Urea nitrogen [Mass/Vol] 14 mg/dL Normal 7-18 [facility] Comment on above: Order Comment: PROAN O PSAD GABRIELA LIPID VITD PSAD CMP CBCD Performed By: #### L 501.9940, L500.4050, L500.4100, L100.0100, L506.1000 #### [facility] [address] [place], [address] Determination of erythrocyte mean corpuscular volume (MCV)Ordered By: Thuan Rainey on 10-26-2023 MCV (RBC) [Entitic vol] 92.7 fL 80-94 [facility] Erythrocyte distribution wid th ratioOrdered By: Thuan Rainey on 10-26-2023 Erythrocyte distribution width (RBC) [Ratio] 12.6 % 11.6-14.6 [facility] Erythrocyte distribution wid th standard deviationOrdered By: Thuan Rainey on 10-26-2023 Erythrocyte distribution width (RBC) [Entitic vol] 42.9 fL 35.1-43.9 [facility] Hematocrit Auto (Bld) [Volum e fraction]Ordered By: Thuan Rainey on 10-26-2023 Hematocrit (Bld) [Volume fraction] 47.0 % 40-54 [facility] Immature granulocytes/100 WB C Auto (Bld)Ordered By: Thuan Rainey on 10-26-2023 Immature granulocytes/100 WBC (Bld) 0.200 % 0.0-0.9 [facility] Comment on above: IG% - Immature Granu locytes (promyelocytes, myelocytes and metamyelocytes) > 1% indicates that a LEFT SHIFT is Present. Laboratory - Chemistry and C hemistry - challengeOrdered By: Thuan Rainey on 10-26-2023 Albumin/Globulin [Mass ratio] 1.3 {ratio} 0.9-2.4 [facility] ALP [Catalytic activity/Vol] 97 U/L 45-117 [facility] ALT [Catalytic activity/Vol] 39 U/L 16-61 [facility] Cholesterol in HDL [Mass/Vol] 42 mg/dL >40 [facility] Comment on above: The drugs N-Acetylcy steine and Metamizole may falsely depress this assay. Reference Range HDL <40 mg/dL Low HDL Cholesterol HDL >or= 60 mg/dL High HDL Cholesterol Cholesterol in LDL [Mass/Vol] 97 mg/dL 0-130 [facility] CO2 [Moles/Vol] 27.0 mmol/L 21.0-32.0 [facility] Globulin (S) [Mass/Vol] 3.1 g/dL 2.2-4.2 [facility] Urea nitrogen/Creatinine [Mass ratio] 16.4 mg/mg 10-20 [facility] - Hematology and Cell countsOrdered By: Thuan Rainey on 10-26-2023 MCH (RBC) [Entitic mass] 32.0 pg 27.0-32.0 [facility] MCHC (RBC) [Mass/Vol] 34.5 g/dL 32-36 [facility] Nucleated RBC/100 WBC (Bld) [Ratio] 0 % 0-5 [facility] Platelet mean volume (Bld) [Entitic vol] 10.7 fL 6.2-12.0 [facility] Platelets (Bld) [#/Vol] 229 10*3/uL 150-450 [facility] Lipid Profileon 10-26-2023 Cholesterol [Mass/Vol] 152 mg/dL Normal 200 [facility] Comment on above: Order Comment: LIZZIE MANNING [place] LIPID VITD PSAD CMP CBCD Result Comment: <200 mg/dL Desirable 200-240 mg/dL Borderline >240 mg/dL High Risk Performed By: #### L 501.9940, L500.4050, L500.4100, L100.0100, L506.1000 #### [facility] [address] [place], [address] Cholesterol in HDL [Mass/Vol] 42 mg/dL Normal [facility] Comment on above: Order Comment: LIZZIE MANNING [place] LIPID VITD PSAD CMP CBCD Result Comment: The drugs N-Acetylcysteine and Metamizole may falsely depress this assay. Reference Range HDL <40 mg/dL Low HDL Cholesterol HDL >or= 60 mg/dL High HDL Cholesterol Performed By: #### L 501.9940, L500.4050, L500.4100, L100.0100, L506.1000 #### [facility] [address] [place], [address] Cholesterol in LDL [Mass/Vol] 97 mg/dL Normal 0-130 [facility] Comment on above: Order Comment: LIZZIE MANNING GABRIELA LIPID VITD PSAD CMP CBCD Performed By: #### L 501.9940, L500.4050, L500.4100, L100.0100, L506.1000 #### [facility] [address] [place], [address] Cholesterol in VLDL [Mass/Vol] 13 mg/dL Normal 5-40 [facility] Comment on above: Order Comment: PROAN O PSAD GABRIELA LIPID VITD PSAD CMP CBCD Performed By: #### L 501.9940, L500.4050, L500.4100, L100.0100, L506.1000 #### [facility] [address], [address] Triglyceride [Mass/Vol] 66 mg/dL Normal [facility] Comment on above: Order Comment: PROAN O PSAD GABRIELA LIPID VITD PSAD CMP CBCD Result Comment: The drugs N-Acetylcysteine and Metamizole may falsely depress this assay. Serum Triglycerides Reference Interval Normal <150 mg/dL Borderline high 150 - 199 mg/dL High 200 - 499 mg/dL Very High > or = 500 mg/dL Performed By: #### L 501.9940, L500.4050, L500.4100, L100.0100, L506.1000 #### [facility] [address] [place], [address] No Panel InformationOrdered By: Thuan Rainey on 10-26-2023 Estimated GFR (MDRD) Amer 118 mL/min >60 [facility] Comment on above: GFR Calc Estimated GFR (MDRD) Non-Af Amer 97 mL/min >60 [facility] Comment on above: Non- GFR Calc Vitamin D 25-Hydroxy 35.1 ng/mL [facility] Comment on above: Vitamin D 25(OH) Sta tus Range Deficiency <20 ng/mL (50nmol/L) Insufficiency 20 - 30 ng/mL (50 - 75 nmol/L) Sufficiency 30 - 100 ng/mL (75 - 250 nmol/L) Toxicity >100 ng/mL (>250 nmol/L) VLDL Cholesterol 13 mg/dL 5-40 [facility] PSA,Total- Diagn[employer] PSA, DIAGNOSTIC 1.58 ng/mL Normal 0.0-4.0 [facility] Comment on above: Order Comment: LIZZIE Chowdhury PSAD GABRIELA LIPID VITD PSAD CMP CBCD Result Comment: This test was performed using the TPSA assay method for the [employer] chemistry system. Values obtained with different assay methods cannot be used interchangably. When changing PSA assays in the course of monitoring a patient, additional sequential testing should be carried out to confirm baseline values. Performed By: #### L 501.9940, L500.4050, L500.4100, L100.0100, L506.1000 #### [facility] [address] [place], [address] RBC Auto (Bld) [#/Vol]Ordere d By: Thuan Rainey on 10-26-2023 RBC (Bld) [#/Vol] 5.07 10*6/uL 4.6-6.2 [facility] Serum or plasma calcium angy urement (mass/volume)Ordered By: Thuan Rainey on 10-26-2023 Calcium [Mass/Vol] 9.0 mg/dL 8.5-10.1 [facility] Serum or plasma creatinine m easurement (mass/volume)Ordered By: Thuan Rainey on 10-26-2023 Creatinine [Mass/Vol] 0.85 mg/dL 0.70-1.30 [facility] Comment on above: The validity of the calculated GFR & GFRAA in patients over 70 years has not been determined. Clinical correlation is essential. Serum or plasma urea nitroge n measurement (mass/volume)Ordered By: Thuan Rainey on 10-26-2023 Urea nitrogen [Mass/Vol] 14 mg/dL 7-18 [facility] Thin prep Papanicolaou smear with manual screeningOrdered By: Thuan Rainey on 10-26-2023 Thin prep Papanicolaou smear with manual screening 4.0 g/dL 3.2-5.0 [facility] Thin prep Papanicolaou smear with manual screening 18 U/L 15-37 [facility] Thin prep Papanicolaou smear with manual screening 7 5-15 [facility] Vitamin D,25 Hydroxyon 02-09 -2024 Vitamin D 25-OH 35.1 ng/mL Normal [facility] Comment on above: Order Comment: LIZZIE Chowdhury PSAD GABRIELA LIPID VITD PSAD CMP CBCD Result Comment: Es min D 25(OH) Status Range Deficiency <20 ng/mL (50nmol/L) Insufficiency 20 - 30 ng/mL (50 - 75 nmol/L) Sufficiency 30 - 100 ng/mL (75 - 250 nmol/L) Toxicity >100 ng/mL (>250 nmol/L) Performed By: #### L 501.9940, L500.4050, L500.4100, L100.0100, L506.1000 #### [facility] [address] [place], [address] Discharge Instructionon 05-[address] [facility] Medical Records Department [address] [place] [address] Instructions for Home/Discharge Instructions 06/15/23 0835 MR#: [id number] Acct: [id number] Name: EVERETT SINGLETON Rep #: [id number] : 1965 58 From: Thuan Rainey MD PCP: Dr. Charli Michelle MD Status[place] [facility] [place]charge Instructions Diet Discharge Diet: No restrictions Activity Discharge Activity: Return to Normal Activity and May Not Drive (while taking narcotic pain medications.) Dressing / Incision Call your doctor if you observe: Fever of 101 or Higher Follow Up Care Please Follow Up With: Thuan Rainey MD When: Call [phone] for an appointment Test Results: Test results from this visit will be discussed in further detail at your follow-up appointment, if applicable. Discharge Plan Admission Primary Reason for Your Visit: turp laser stones Attending Provider: Thuan Rainey Primary Care Provider: Charli Michelle Discharge Orders/Prescriptions Prescriptions: New ciprofloxacin HCl [Cipro] 500 mg tablet 500 mg PO BID Qty: 10 0RF Continued atenolol 25 MG tablet 25 mg PO DAILY hydrochlorothiazide 12.5 MG capsule 12.5 mg PO DAILY omeprazole magnesium 20 MG tablet,delayed release (DR/EC) 20 mg PO PRN PRN (Reason: GERD) atorvastatin 20 MG tablet 20 mg PO QHS tamsulosin 0.4 mg capsule 0.4 mg PO QHS Referrals / Follow Up: Charli Michelle MD [Primary Care Provider] - Thuan Rainey MD [Med Staff - Active Staff] - Disposition Disposition (needs filled in before D/C Order can be placed): Home, Self Care 06/15/23 0835 Thuan Rainey MD CC: Dr. Charli Michelle MD Signed Normal [facility] Operative Reporton 3 Operative Report [facility] Medical Records Department [address] [place] [address] Operative Report 06/15/23 1005 MR#: [id number] Acct: [id number] Name: EVERETT SINGLETON Rep #: [id number] : 1965 58 From: Thuan Rainey MD PCP: Dr. Charli Michelle MD Status:ADM [facility] Location: [place] [address] Report of Operation Date of Procedure: 06/15/23 Pre-Operative Diagnosis: Bladder stone and left ureteral calculi and BPH with obstruction Post-Operative Diagnosis: The same Surgery/Procedure Performed:: Cystoscopy, left ureteroscopy laser lithotripsy, cystolitholapaxy of a very large bladder stone, no stent, transurethral resection of the prostate, balloon dilation of the left ureter Description of Surgical Findings:: Patient was taken back to the operating room at the smooth induction of general anesthesia he was placed in dorsolithotomy position. The penis and testicles were prepped and draped in usual sterile fashion went into the bladder with a 21 Malagasy rigid cystourethroscope, I then cannulated the left ureter with a Glidewire balloon dilated to the left ureter then went in with a semirigid ureteroscope small stone was then lasered little tiny pieces all the pieces then came into the bladder, no stent was placed and I went back into the bladder and used a large 1000 ???m laser fiber and lasered the bladder stone into little tiny pieces this took about 45 minutes. Then after this I changed over to the resectoscope went back into the bladder with a 24 Malagasy noncontinuous flow resectoscope once inside the bladder I then pulled back identify the right and left ureteral orifice of identify the bladder neck he had an obstructive prostate but no median lobe identified the verumontanum and then marked out my resection site from the bladder neck to the verumontanum and also the anterior part of the prostate I then resected the at the 12 o'clock position and then I resected the 6 o'clock position I then resected the right lobe of the prostate resected left lobe the prostate made sure that there was good apical tissue was very carefully resected apical tissue had a nice wide open channel from the verumontanum into the bladder neck with no obstruction I then used the button to smooth out the resection obtain good hemostasis and then after the resection was done it was a complete resection of the prostate I then placed a 22 Malagasy catheter into the bladder and filled the balloon with 30 cc balloon there was started on continuous bladder irrigation will be kept overnight for observation and then will take the catheter out tomorrow morning for voiding trial. Surgeon: Thuan Rainey Type of Anesthesia: General Drains: 22fr 3 way Admit VTE Documentation VTE Present on Admission: No VTE Mechan Device Prophylaxis: SCD's VTE Pharm Prophylaxis ordered?: No 06/15/23 1010 Cosigner Signature (if applicable): CC: Dr. Charli Michelle MD; Dr. Thuan Rainey MD Signed Normal [facility] Surgery Specimen Level Rodrigo 06-15-2023 Surgery Specimen Level IV Patient Age/Sex Location Account Attending Physician EVERETT SINGLETON 58/M MS3 [id number] Dr. Thuan Rainye MD Specimen: [id number] Received: 06/15/231403 Status: JEFF Muñoz Num: [id number] Spec Type: TURP Subm Dr: Dr. Thuan Rainey MD HEADER OPERATION: Cysto, ureteroscopy, litholapaxy PRE-OP DIAGNOSIS: BPH with lower urinary tract symptoms, elevated PSA, calculus in bladder and ureter, malignant neoplasm of prostate TISSUE SUBMITTED: Prostate tissue -------- MICROSCOPIC DIAGNOSIS Prostate, transurethral resection: Benign nodular hyperplasia, glandular and stromal types. Chronic inflammation. AM:ashley 06/19/2023 COMMENT Reference is made to the patient's previous prostate needle core biopsies from the left base ([id number]) in which Ellie grade 6 (3+3) adenocarcinoma was identified. MICROSCOPIC DESCRIPTION Slides are reviewed. GROSS DESCRIPTION Received is one container labeled with the patient's name and designated prostate tissue. The specimen consists of multiple irregular fragments of pink-ventura, rubbery, soft tissue mixed with brown stones and stone fragments that in aggregate weigh 9.8 gm and measure in aggregate 6.0 x 4.0 x 1.5 cm. The stones measure <0.1 to 0.5 cm in greatest dimension. The entire soft tissue is submitted in six cassettes. / SJ:ashley 06/18/2023 TC:3 CPT: 04379 -------- Patient Age/Sex Location Account Attending Physician -------- EVERETT SINGLETON 58/M MS3 [id number] Dr. Thuan Rainey MD -------- Signed (signature on file) Dr. Farooq Razo DO 06/19/23 1222 -------- Normal [facility] Comment on above: Performed By: #### P SUIV ####[facility] [address] [place], [address] 12 Lead EKGon 06-06-2023 12 Lead EKG [facility] Cardiovascular Services [address] [place] [address] 12 Lead EKG 06/06/23 1359 MR#: [id number] Acct: [id number] Name: EVERETT SINGLETON Rep #: [id number] : 1965 58 From: Maldonado Rodriguez MD Attending Dr: Dr. Thuan Rainey MD Status: PRE [facility] Ordering Dr: Andre Farrell MD Date: 06/06/23 Location: [facility] Sex: M C Admitted: Test Reason : PRE OP Blood Pressure : / mmHG Vent. Rate : 061 BPM Atrial Rate : 061 BPM P-R Int : 156 ms QRS Dur : 108 ms QT Int : 372 ms P-R-T Axes : 039 033 032 degrees QTc Int : 374 ms Normal sinus rhythm Normal ECG Confirmed by HORACE HOWE, JANICE ([id number]), editorial assistant DAMIAN GONZALEZ ([id number]) on 06/12/2023 10:39:03 AM Referred By: Thuan Rainey Confirmed By:RIN RODRIGUEZ MD 06/12/23 1039 Date Maldonado Rodriguez MD CC: Dr. Charli Michelle MD; Dr. Andre Farrell MD; Dr. Thuan Rainey MD Signed Normal [facility] Basic Metabolic Profile (BMP )on 06-06-2023 BUN/CRE 24.5 RATIO High 10-20 [facility] Comment on above: Performed By: #### L 500.2500 #### [facility] [address] [place], [address] CA,Total 8.9 mg/dL Normal 8.5-10.1 [facility] Comment on above: Performed By: #### L 500.2500 #### [facility] [address] [place], [address] EST GFR - AA 96 mL/min Normal >60 [facility] Comment on above: Result Comment: Afri can Zambian GFR Calc Performed By: #### L 500.2500 #### [facility] [address] [place], [address] GAP 6 Normal 5-15 [facility] Comment on above: Performed By: #### L 500.2500 #### [facility] [address] [place], [address] GFR/1.73 sq M.predicted among non-blacks MDRD (S/P/Bld) [Vol rate/Area] 79 mL/min/{1.73_m2} Normal >60 [facility] Comment on above: Result Comment: Non- GFR Calc Performed By: #### L 500.2500 #### [facility] [address] [place], [address] Basic Metabolic Profile (BMP )Ordered By: Andre Farrell on 06-06-2023 CO2 [Moles/Vol] 27.0 mmol/L Normal 21.0-32.0 [facility] Comment on above: Performed By: #### L 500.2500 #### [facility] [address] [place], [address] Basophil percentageOrdered B y: Andre Farrell on 06-06-2023 Chloride [Moles/Vol] 106 mmol/L Normal 98-107 [facility] Comment on above: Performed By: #### L 500.2500 #### [facility] [address] [place], [address] Glucose [Mass/Vol] 95 mg/dL Normal 74-106 [facility] Comment on above: Performed By: #### L 500.2500 #### [facility] [address] [place], [address] Potassium [Moles/Vol] 3.7 mmol/L Normal 3.5-5.1 [facility] Comment on above: Performed By: #### L 500.2500 #### [facility] [address] [place], [address] Sodium [Moles/Vol] 139 mmol/L Normal 136-145 [facility] Comment on above: Performed By: #### L 500.2500 #### [facility] [address] [place], [address] Laboratory - Chemistry and C hemistry - challengeOrdered By: Andre Farrell on 06-06-2023 Urea nitrogen/Creatinine [Mass ratio] 24.5 mg/mg 07-06 [facility] No Panel InformationOrdered By: Andre Farrell on 06-06-2023 Estimated GFR (MDRD) Amer 96 mL/min >60 [facility] Comment on above: GFR Calc Estimated GFR (MDRD) Non-Af Amer 79 mL/min >60 [facility] Comment on above: Non- GFR Calc Serum or plasma calcium angy urement (mass/volume)Ordered By: Andre Farrell on 06-06-2023 Calcium [Mass/Vol] 8.9 mg/dL 8.5-10.1 [facility] Serum or plasma creatinine m easurement (mass/volume)Ordered By: Andre Farrell on 06-06-2023 Creatinine [Mass/Vol] 1.02 mg/dL Normal 0.70-1.30 [facility] Comment on above: The validity of the calculated GFR & GFRAA in patients over 70 years has not been determined. Clinical correlation is essential. Result Comment: The validity of the calculated GFR GFRAA in patients over 70 years has not been determined. Clinical correlation is essential. Performed By: #### L 500.2500 #### [facility] [address] [place], [place], [address] Serum or plasma urea nitroge n measurement (mass/volume)Ordered By: Andre Farrell on 06-06-2023 Urea nitrogen [Mass/Vol] 25 mg/dL High 7-18 [facility] Comment on above: Performed By: #### L 500.2500 #### [facility] [address] [place], [place], [address] Thin prep Papanicolaou smear with manual screeningOrdered By: Andre Farrell on 06-06-2023 Thin prep Papanicolaou smear with manual screening 6 -15 [facility] No Panel InformationOrdered By: Thuan Rainey on 03-15-2023 Prostate Specific Antigen Total 8.55 ng/mL 0.0-4.0 [facility] Comment on above: This test was perfor med using the TPSA assay method for [facility]. Values obtained with differentassay methods cannot be used interchangably.When changing PSA assays in the course of monitoring apatient, additional sequential testing should be carriedout to confirm baseline values. OCT OPTIC NERVE CIRRUS OU (B OTH EYES) [facility] Vital Signs Date Time Vital Sign Value Performing Clinician Faci lity 06-16-2023 08:57-0400 Body temperature 97.8 [degF] Dr. Charli Michelle Work Phone: [facility] 06-16-2023 08:57-0400 Diastolic blood pressure 76 mm[Hg] Dr. Charli Michelle Work Phone: [facility] 06-16-2023 08:57-0400 Heart rate 67 /min Dr. Charli Michelle Work Phone: [facility] 06-16-2023 08:57-0400 Respiratory rate 18 /min Dr. Charli Michelle Work Phone: [facility] 06-16-2023 08:57-0400 SaO2% (BldA) [Mass fraction] 96 % Dr. Charli Michelle Work Phone: [facility] 06-16-2023 08:57-0400 Systolic blood pressure 118 mm[Hg] Dr. Charli Michelle Work Phone: [facility] 06-15-2023 07:27-0400 Body height 165.[address] Charli Michelle Work Phone: [facility] 06-15-2023 07:27-0400 Body mass index (BMI) [Ratio] 31.2 kg/m2 Dr. Charli Michelle Work Phone: [facility] 06-15-2023 07:27-0400 Body weight 85.[address] Charli Michelle Work Phone: [facility] Encounters Encounter Date Encounter Type Care Provider Facility Start: 04-29-2024 End: 04-29-2024 ambulatory Thuan Rainey Facility:[facility] Start: 12-19-2023 End: 12-19-2023 ambulatory VALENTINA JERRY II Facility:[facility] Start: 12-19-2023 End: 12-19-2023 Patient encounter procedure Valentina Jerry OD Work Phone: Optometry Comment on above: Presbyopia (Primary Dx); Myopia, bilateral; Regular astigmatism, bilateral; Macular drusen, bilateral; Vitreous floaters of both eyes; Glaucoma suspect of both eyes Start: 10-26-2023 End: 10-26-[address] [facility] Work Phone: Start: 10-26-2023 End: 10-26-[address] [facility] Work Phone: Start: 10-26-2023 End: 10-26-2023 ambulatory [facility] Facility:[facility] Start: 06-15-2023 End: 06-16-2023 ambulatory [facility] Facility:[facility] Start: 06-15-2023 End: 06-16-2023 Evaluation and management of inpatient Dr. Charli Michelle Work Phone: [facility] 3 Work Phone: Start: 06-15-2023 End: 06-16-[address] Charli Michelle Work Phone: [facility] Work Phone: Start: 06-06-2023 End: 06-06-2023 ambulatory [facility] [place] Start: 06-06-2023 End: 06-06-2023 Non-patient / Non-visit Dr. Charli Michelle Work Phone: [facility] [facility] Work Phone: Start: 05-02-2023 End: 05-02-[address] [facility] Work Phone: Start: 05-02-2023 End: 05-02-[address] [facility], [facility] Work Phone: Start: 04-12-2023 End: 04-12-[address] [facility] Work Phone: Start: 04-12-2023 End: 04-12-[address] [facility], Specimen Work Phone: Start: 04-02-2023 End: 04-02-[address] [facility] - [facility] Work Phone: Start: 03-15-2023 End: 03-15-[address] [facility] Work Phone: Start: 12-06-2021 End: 12-06-2021 Patient encounter procedure Valentina Jerry OD Work Phone: Optometry Comment on above: Myopia, bilateral (P rimary Dx); Regular astigmatism, bilateral; Presbyopia Procedures Date Procedure Procedure Detail Performing Clinician Start: 12-19-2023 Computerized ophthal alec imaging optic nerve Valentina Treadwellcinda OD Work Phone: Start: 06-15-2023 Cysto,TUR,Prostate,O lympus (Not Applicable) Dr. Charli Michelle Work Phone: Start: 06-15-2023 Cystoscopy and retro grade pyelography Dr. Charli Michelle Work Phone: Start: 05-02-2023 Computed tomography of abdomen and pelvis with contrast Start: 05-02-2023 Radionuclide whole b ashleigh bone study Start: 04-02-2023 MRI of pelvis with contrast Plan of Treatment Date Care Activity Detail Author Start: 09-17-2023 Behavioral Health Screening Behavioral Health Screening [facility] Start: 06-16-[address] [facility] Start: 06-16-2023 Removal of urinary catheter [facility] Start: 06-15-2023 Application of intermittent pneumatic compression device [facility] Start: 06-15-2023 Following clinical pathway protocol [facility] Start: 06-15-2023 Deep breathing and coughing exercises [facility] Start: 06-15-[address] [facility] Start: 06-15-[address] [facility] Start: 06-15-2023 Provision of activity privileges [facility] Start: 06-15-[address] [facility] Start: 06-15-2023 Irrigation of urinary bladder [facility] Start: 06-15-2023 Me[address]uring intake and output [facility] Start: 06-15-[address] [facility] Start: 06-15-2023 Taking patient vital signs [facility] Start: 06-15-2023 Vital signs measurements [facility] Start: 06-15-2023 End: 06-15-2023 [facility] Start: 05-18-2023 Covid-19 Vaccine () Covid-19 Vaccine () [facility] Start: 2023 RSV Vaccine (1 - 1-dose 60+ series) RSV Vaccine (1 - 1-dose 60+ series) [facility] Start: 05-18-2021 Influenza vaccination INFLUENZA (#1) [facility] Start: 2018 PROSTATE CANCER SCREENING DISCUSSION PROSTATE CANCER SCREENING DISCUSSION [facility] Start: 2018 Prostate specific antigen measurement Prostate Cancer Screening Discussion [facility] Start: 2013 SHINGRIX VACCINE (1 of 2) SHINGRIX VACCINE (1 of 2) [facility] Start: 2008 COLOGUARD (FIT-DNA) COLOGUARD (FIT-DNA) [facility] Start: [address] [facility] Start: 2008 COLORECTAL CANCER SCREENING COLORECTAL CANCER SCREENING [facility] Start: [address]AP[address] [facility] Start: 2008 DIABETES SCREEN DIABETES SCREEN [facility] Start: 2008 Diabetes Screening Diabetes Screening [facility] Start: 2008 FECAL OCCULT BLOOD FECAL OCCULT BLOOD [facility] Start: 2008 Screening for malignant neoplasm of colon [facility] Start: [address] [facility] Start: 1998 Lipid panel Lipid Screening [facility] Start: 1998 LIPID SCREEN LIPID SCREEN [facility] Start: [address] [facility] Start: 1981 HEPATITIS C SCREENING HEPATITIS C SCREENING [facility] Start: 1981 Hepatitis C screening Hepatitis C Screening [facility] Start: 1981 HIV SCREENING HIV SCREENING [facility] Start: 1981 HIV screening HIV Screening [facility] Start: 1975 Adult depression screening assessment DEPRESSION SCREENING [facility] Start: 1968 COVID-19 VACCINE (1) COVID-19 VACCINE (1) [facility] Patient referral [facility] Work Phone: Payers Date Payer Category Payer Self-pay [id number] 2023 Unknown [id number] 2021 Unknown VISION [employer] P FAR[employer] VSP VISION [id number] 2021-Present [address] [place] [address] Indemnity [id number] 2021 Unknown [id number] 2021 Unknown [id number] Unknown ANTHEM [id number] Unknown [facility] DO NOT USE 22* * [id number] Unknown [id number] Unknown [id number] Unknown [id number] Unknown [id number] Social History Date Type Detail Facility Start: 05-09-2018 Tobacco smoking stat us NHIS Never smoked tobacco [facility] Start: 12-06-2021 End: 12-19-2023 Alcohol intake Current drinker of alcohol (finding) [facility] Start: 1965 Sex Assigned At Not on file [facility] Start: 11-26-2021 End: 12-06-2021 Exposure to SARS-CoV-2 (event) Not sure [facility] Start: 10-14-2020 End: 06-01-2023 Tobacco smoking status NHIS Unknown if ever smoked [facility] Start: 07-22-2019 Non-smoker [facility] Start: 1965 Sex Assigned At Male W [facility] Start: 05-09-2018 Tobacco use and exposure Smokeless tobacco non-user [facility] Start: 12-06-2021 End: 12-19-2023 History of [address] [facility] Start: 12-06-2021 End: 12-19-[address] [facility] National Score (1-100), lower number is lower risk 71 [facility] Goals Date Patient Goal Desired Activity /State Functional Status Date Assessment Result Facility 06-16-2023 Functional status Chair Jenifer Grossman [facility] Work Phone: Mental Status Date Assessment Result Facility 06-16-2023 Cognitive function Voice/Name Jenifer Marti [facility] Work Phone: Clinical Notes 12-06-2021 to 12-19-2023 Patient InstructionsCoValentina ann II, OD - 12/19/2023 4:57 PM EDT Note Date & Type Note Facility 12-19-2023 Note HNO ID: [id number] Author: VALENTINA JERRY II, OD Service: ? 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 Update glasses to maximize visual performance. H35.363 Macular drusen, bilateral Comment: L>R. Monitor for change. H43.393 Vitreous floaters of both eyes Comment: L>R. Vitreal floaters stable both eyes. Retinas flat and intact with no apparent retinal tear or traction. Monitor yearly. H40.003 Glaucoma suspect of both eyes Comment: Previously noted C/D asymmetry. All stable. Monitor. I have confirmed and edited as necessary the relevant HPI, ophthalmic history, ROS, and the neuro exam findings as obtained by others. I have seen and examined Everett Singleton. I have discussed the case and the management of this patient's care with the Resident/Fellow, if applicable. I also have reviewed and agree with the assessment and plan as stated above and agree with all of its relevant components. [facility] 12-19-2023 Instructions Valentina Jerry II, OD - 12/19/2023 5:02 PM EDT Assessment and Plan H52.4 Presbyopia (primary encounter diagnosis) H52.13 Myopia, bilateral H52.223 Regular astigmatism, bilateral Comment: Shift in glasses power. Update glasses to maximize visual performance. H35.363 Macular drusen, bilateral Comment: L>R. Monitor for change. H43.393 Vitreous floaters of both eyes Comment: L>R. Vitreal floaters stable both eyes. Retinas flat and intact with no apparent retinal tear or traction. Monitor yearly. H40.003 Glaucoma suspect of both eyes Comment: Previously noted C/D asymmetry. All stable. Monitor. I have confirmed and edited as necessary the relevant HPI, ophthalmic history, ROS, and the neuro exam findings as obtained by others. I have seen and examined Everettblaine Singleton. I have discussed the case and the management of this patient's care with the Resident/Fellow, if applicable. I also have reviewed and agree with the assessment and plan as stated above and agree with all of its relevant components. documented in this encounter [facility] 12-19-2023 History of Presen t illness Narrative Assessment and Plan H52.4 Presbyopia (primary encounter diagnosis) H52.13 Myopia, bilateral H52.223 Regular astigmatism, bilateral Comment: Shift in glasses power. Update glasses to maximize visual performance. H35.363 Macular drusen, bilateral Comment: L>R. Monitor for change. H43.393 Vitreous floaters of both eyes Comment: L>R. Vitreal floaters stable both eyes. Retinas flat and intact with no apparent retinal tear or traction. Monitor yearly. H40.003 Glaucoma suspect of both eyes Comment: Previously noted C/D asymmetry. All stable. Monitor. I have confirmed and edited as necessary the relevant HPI, ophthalmic history, ROS, and the neuro exam findings as obtained by others. I have seen and examined Everettblaine Singleton. I have discussed the case and the management of this patient's care with the Resident/Fellow, if applicable. I also have reviewed and agree with the assessment and plan as stated above and agree with all of its relevant components. documented in this encounter [facility] 06-16-2023 Progress note Note Date/Time June 16, 2023 7:38am [facility] Medical Records Department [address] [place] [address] Progress Note - Urology 06/16/23 0738 MR#: [id number] Acct: [id number] Name: EVERETT SINGLETON Rep #:[id number] : 1965 58 From: Thuan Rainey MD PCP: Dr. Charli Michelle MD Status:ADM KRISSY [place] [facility] [place] [id number] Subjective Subjective Status post transurethral resection of the prostate urine is crystal clear we can DC the Black this morning and discharged home. Objective Data Objective Data Vital Signs: Vital Signs Temp Pulse Resp BP Pulse Ox O2 Del Method 97.9 F 73 16 116/69 97 Room Air 06/16/23 03:02 06/16/23 03:02 06/16/23 03:02 06/16/23 03:02 06/16/23 04:30 06/16/23 04:30 Oxygen Delivery Method Room Air Weight: 85.1 kg Body Mass Index (BMI) 31.2 Intake & Output: Intake and Output for Last 24 Hours 06/14/23 06/15/23 06/16/23 23:59 23:59 23:59 Intake Total 2348.25 / 2348.25 3500 / 3500 Output Total 100 / 100 Balance 2248.25 / 2248.25 3500 / 3500 Lab / Micro Data 06/06/23 14:10 06/16/23 0738 <Electronically signed by Thuan Rainey MD> Cosigner Signature (if applicable): CC: ~ Signed [facility] Work Phone: 1(363) 685-641209-29-2023 Discharge summary Author Thuan Rainey [facility] June 15, 2023 8:35am Note Date/Time June 15, 2023 8:35am [facility] Medical Records Department [address] [place] [address] Instructions for Home/Discharge Instructions 06/15/23 0835 MR#: [id number] Acct: [id number] Name: EVERETT SINGLETON Rep #:[id number] : 1965 58 From: Thuan Rainey MD PCP: Dr. Charli Michelle MD [place] [facility] [place] Diet Discharge Diet: No restrictions Activity Discharge Activity: Return to Normal Activity and May Not Drive (while taking narcotic pain medications.) Dressing / Incision Call your doctor if you observe: Fever of 101 or Higher Follow Up Care Please Follow Up With: Thuan Rainey MD When: Call [phone] for an appointment Test Results: Test results from this visit will be discussed in further detail at your follow- up appointment, if applicable. Discharge Plan Admission Primary Reason for Your Visit: turp laser stones Attending Provider: Thuan Rainey Primary Care Provider: Charli Michelle Discharge Orders/Prescriptions Prescriptions: New ciprofloxacin HCl [Cipro] 500 mg tablet 500 mg PO BID Qty: 10 0RF Continued atenolol 25 MG tablet 25 mg PO DAILY hydrochlorothiazide 12.5 MG capsule 12.5 mg PO DAILY omeprazole magnesium 20 MG tablet,delayed release (DR/EC) 20 mg PO PRN PRN (Reason: GERD) atorvastatin 20 MG tablet 20 mg PO QHS tamsulosin 0.4 mg capsule 0.4 mg PO QHS Referrals / Follow Up: Charli Michelle MD [Primary Care Provider] - Thuan Rainey MD [Med Staff - Active Staff] - Disposition Disposition (needs filled in before D/C Order can be placed): Home, Self Care 06/15/23 0835<Electronically signed by Thuan Rainey MD>hTuan Rainey MD CC: Dr. Charli Michelle MD ~ Signed [facility] Work Phone: 1(940) 718-113409-29-2023 Procedure [facility] 06-15-2023 History and physical note Author Thuan Rainey [facility] June 15, 2023 7:27am Note Date/Time June 15, 2023 7:27am [facility] Medical Records Department [address] [place] [address] History & Physical Exam 06/15/23726 MR#: [id number] Acct: [id number] Name: ROMAEVERETTBLAINE BUCHANAN Rep #:[id number] : 1965 58 From: Thuan Rainey MD PCP: Dr. Charli Michelle MD [place] [facility] [place]: [place] [address] History and Physical Date of Admission: 06/15/23 Patient returns, 58-year-old male with a continuously rising PSA up to 8.55, he underwent a prostate biopsy came back positive with one core positive Ellie six low grade cancer low-volume disease. Workup with bone scan was negative workworkup with CAT scan was negative but on the CAT scan he is also found to have nancy large bladder stone about 3 cm in size, also has a left ureteral stone, viridiana very large obstructive prostate. ALLERGIES: Tetracycline MEDICATIONS: Flomax 0.4 mg capsule 1 capsule PO Q HS Atenolol 25 mg tablet 1 tablet PO Daily Atorvastatin Calcium 20 mg tablet 1 tablet PO Daily Ciprofloxacin Hcl 500 mg tablet 1 tablet PO Daily Hydrochlorothiazide 12.5 mg capsule 1 capsule PO Daily PAST SURGICAL HISTORY: Prostate Needle Biopsy - 04/12/2023 Remove Kidney Stone - 2001 Shoulder Surgery (Unspecified) - 2017 Transrectal Biopsy US - 04/12/2023 PAST MEDICAL HISTORY: Elevated prostate specific antigen [PSA] - 04/12/2023, - 03/15/2023 Bronchitis, not specified as acute or chronic Frequency of micturition Hyperlipidemia, unspecified Nocturia Secondary hypertension, unspecified Immunizations: None FAMILY HISTORY: Lung Cancer - Father SOCIAL HISTORY: Marital Status: Preferred Language: Sami; Race: White Current Smoking Status: Patient has never smoked. Tobacco Use Assessment Completed: Used Tobacco in last 30 days? Smoking cessation counseling was provided. Does not use smokeless tobacco. Drinks 4 drinks per month. Types of alcohol consumed: Beer. Social Drinker. Does not use drugs. Drinks 1 caffeinated drink per day. Has not had a blood transfusion. REVIEW OF SYSTEMS: Constitutional: Patient denies fever, chills, weight loss, and weight gain. Eyes: Patient denies glaucoma, cataracts, and blurry vision. Ears, Nose, Mouth, Throat: Patient denies hearing loss, sinus infections, and sleep apnea. Cardiovascular: Patient denies chest pains, swollen ankles, irregular heartbeat, and pacemaker/defib. Respiratory: Patient denies shortness of breath, wheezing, oxygen, and cpap machine. Gastrointestinal: Patient denies abdominal pain, diarrhea, constipation, nausea, and vomiting. Genitourinary: Patient denies frequent urination, urinary retention, get up at night to void, urinary incontinence, painful urination, blood in the urine, frequent uti's, history of stones, difficulty starting stream, weak stream/scanty, and bedwetting. Musculoskeletal: Patient denies sore muscles, back pain, and gout. Integumentary/Skin: Patient denies rash, skin cancer, and chronic itching. Neurological: Patient denies falling/unsteady, paralysis, and stroke/tia. Hematologic/Lymphatic: Patient denies abnormal bleeding, blood transfusion, swollen lymph nodes, deep venous thrombosis, and pulmonary embolism. VITAL SIGNS: 05/08/2023 03:57 PM Weight 180 lb / 81.65 kg Height 65 in / 165.1 cm BP 136/78 mmHg BMI 30.0 kg/m? - BMI Counseling was provided. PHYSICAL EXAM: Constitutional: Well-nourished. No physical deformities. Normally developed. Good grooming. Neck: Neck symmetrical, not swollen. Normal tracheal position. Respiratory: No labored breathing, no use of accessory muscles. Cardiovascular: Normal temperature, normal extremity pulses, no swelling, no varicosities. Lymphatic: No enlargement of neck, axillae, groin. Skin: No paleness, no jaundice, no cyanosis. No lesion, no ulcer, no rash. Neurologic / Psychiatric: Oriented to time, oriented to place, oriented to person. No depression, no anxiety, no agitation. Gastrointestinal: No mass, no tenderness, no rigidity, non obese abdomen. Eyes: Normal conjunctivae. Normal eyelids. Ears, Nose, Mouth, and Throat: Left ear no scars, no lesions, no masses. Right ear no scars, no lesions, no masses. Nose no scars, no lesions, no masses. Normal hearing. Normal lips. Musculoskeletal: Normal gait and station of head and neck. Complexity of Data: Source Of History: Patient Records Review: Previous Doctor Records, Previous Patient Records Urine Test Review: Urinalysis 03/16/23 03/15/23 01/22/23 12/15/22 PSA Total PSA 8.55 ng/mL 8.55 ng/mL 7.3 4.38 Free PSA 0.94 % Free PSA 12.[address] [facility] [place], [address] This test was performed using the TPSA assay method for the [employer] chemistry system. Values obtained with different assay methods cannot be used interchangably. When changing PSA assays in the course of monitoring a patient, additional sequential testing should be carried out to confirm baseline values. [facility] [place], [address] This test was performed using the TPSA assay method for the [employer] chemistry system. Values obtained with different assay methods cannot be used interchangably. When changing PSA assays in the course of monitoring a patient, additional sequential testing should be carried out to confirm baseline values. PROCEDURES: None ASSESSMENT: ICD-10 Details 1 Benign prostatic hyperplasia with lower urinary tract symptoms - N40.1 Acute, Systemic Symptoms 2 Elevated prostate specific antigen [PSA] - R97.20 Acute, Systemic Symptoms 3 Calculus in bladder - N21.0 Acute, Systemic Symptoms 4 Calculus of ureter - N20.1 Left, Acute, Systemic Symptoms 5 Malignant neoplasm of prostate - C61 Acute, Systemic Symptoms PLAN: Medications Stop Meds: Fleet Enema 1 kit NM once Administer one hour prior to procedure Start: 03/15/2023 Discontinue: 05/08/2023 - Reason: The medication cycle was completed. Document Letter(s): Created for Patient: Clinical Summary Notes: 58-year-old male found out prostate cancer, bladder stone, ureteral stone, large obstructive prostate. Recommend that we proceed with active surveillance for his prostate cancer, I'm to set him up for laser surgery on his bladder stone to remove the bladder stone and were also can go up and laser the stone in the ureter he might need a stent in the left side and after that will finish up with the TURP to shave the prostate open. And then will continue with active surveillance after the surgery with PSA's starting every four months and will workup every six months afterwards explain to the patient and his does possible we may need to eventually treat his prostate cancer but for now will continue with active surveillance. 06/15/23726 <Electronically signed by Thuan Rainey MD> Cosigner Signature (if applicable): CC: Dr. Charli Michelle MD; Dr. Thuan Rainey MD~ Signed [facility] Work Phone: 1(924) 913-810309-29-2023 [facility] Medical Records Department [address] [place] [address] History Physical Exam 06/15/23 0727 MR#: [id number] Acct: [id number] Name: EVERETT SINGLETON Rep #: [id number] : 1965 58 From: Thuan Rainey MD PCP: Dr. Charli Michelle MD Status:[facility] Location: [place] [address] History and Physical Date of Admission: 06/15/23 Patient returns, 58-year-old male with a continuously rising PSA up to 8.55, he underwent a prostate biopsy came back positive with one core positive Daisy six low grade cancer low-volume disease. Workup with bone scan was negative work workup with CAT scan was negative but on the CAT scan he is also found to have a very large bladder stone about 3 cm in size, also has a left ureteral stone, and a very large obstructive prostate. ALLERGIES: Tetracycline MEDICATIONS: Flomax 0.4 mg capsule 1 capsule PO Q HS Atenolol 25 mg tablet 1 tablet PO Daily Atorvastatin Calcium 20 mg tablet 1 tablet PO Daily Ciprofloxacin Hcl 500 mg tablet 1 tablet PO Daily Hydrochlorothiazide 12.5 mg capsule 1 capsule PO Daily PAST SURGICAL HISTORY: Prostate Needle Biopsy - 04/12/2023 Remove Kidney Stone - 2001 Shoulder Surgery (Unspecified) - 2018 Transrectal Biopsy US - 04/12/2023 PAST MEDICAL HISTORY: Elevated prostate specific antigen [PSA] - 04/12/2023, - 03/15/2023 Bronchitis, not specified as acute or chronic Frequency of micturition Hyperlipidemia, unspecified Nocturia Secondary hypertension, unspecified Immunizations: None FAMILY HISTORY: Lung Cancer - Father SOCIAL HISTORY: Marital Status: Preferred Language: Sami; Race: White Current Smoking Status: Patient has never smoked. Tobacco Use Assessment Completed: Used Tobacco in last 30 days? Smoking cessation counseling was provided. Does not use smokeless tobacco. Drinks 4 drinks per month. Types of alcohol consumed: Beer. Social Drinker. Does not use drugs. Drinks 1 caffeinated drink per day. Has not had a blood transfusion. REVIEW OF SYSTEMS: Constitutional: Patient denies fever, chills, weight loss, and weight gain. Eyes: Patient denies glaucoma, cataracts, and blurry vision. Ears, Nose, Mouth, Throat: Patient denies hearing loss, sinus infections, and sleep apnea. Cardiovascular: Patient denies chest pains, swollen ankles, irregular heartbeat, and pacemaker/defib. Respiratory: Patient denies shortness of breath, wheezing, oxygen, and cpap machine. Gastrointestinal: Patient denies abdominal pain, diarrhea, constipation, nausea, and vomiting. Genitourinary: Patient denies frequent urination, urinary retention, get up at night to void, urinary incontinence, painful urination, blood in the urine, frequent uti's, history of stones, difficulty starting stream, weak stream/scanty, and bedwetting. Musculoskeletal: Patient denies sore muscles, back pain, and gout. Integumentary/Skin: Patient denies rash, skin cancer, and chronic itching. Neurological: Patient denies falling/unsteady, paralysis, and stroke/tia. Hematologic/Lymphatic: Patient denies abnormal bleeding, blood transfusion, swollen lymph nodes, deep venous thrombosis, and pulmonary embolism. VITAL SIGNS: 05/08/2023 03:57 PM Weight 180 lb / 81.65 kg Height 65 in / 165.1 cm BP 136/78 mmHg BMI 30.0 kg/m??? - BMI Counseling was provided. PHYSICAL EXAM: Constitutional: Well-nourished. No physical deformities. Normally developed. Good grooming. Neck: Neck symmetrical, not swollen. Normal tracheal position. Respiratory: No labored breathing, no use of accessory muscles. Cardiovascular: Normal temperature, normal extremity pulses, no swelling, no varicosities. Lymphatic: No enlargement of neck, axillae, groin. Skin: No paleness, no jaundice, no cyanosis. No lesion, no ulcer, no rash. Neurologic / Psychiatric: Oriented to time, oriented to place, oriented to person. No depression, no anxiety, no agitation. Gastrointestinal: No mass, no tenderness, no rigidity, non obese abdomen. Eyes: Normal conjunctivae. Normal eyelids. Ears, Nose, Mouth, and Throat: Left ear no scars, no lesions, no masses. Right ear no scars, no lesions, no masses. Nose no scars, no lesions, no masses. Normal hearing. Normal lips. Musculoskeletal: Normal gait and station of head and neck. Complexity of Data: Source Of History: Patient Records Review: Previous Doctor Records, Previous Patient Records Urine Test Review: Urinalysis 03/16/23 03/15/23 01/22/2331/23 PSA Total PSA 8.55 ng/mL 8.55 ng/mL 7.3 4.38 Free PSA 0.94 % Free PSA 12.[address] [facility] [place], [address] This test was performed using the TPSA assay method for the [employer] chemistry system. Values obtained with different assay methods cannot be used interchangably. When changing PSA assays in the course of monitoring a patient, add (more content not included)...[facility]03-22-2022 Instructions* Patient Instructions* Valentina Jerry II, OD - 12/06/2021 4:50 PM EDT Assessment [...] and plan as stated above and agree withall of its relevant components. Valentina Jerry II, OD documented [facility] History of Present illness Narrative* Valentina Jerry II, OD - 12/06/2021 4:48 PM EDT Assessment and Plan H52.13 Myopia, [...] and plan as stated above and agree withall of its relevant components. Valentina Jerry II, OD [facility] Diagnosis Myopia, bilateral- Primary Myopia Regular astigmatism, bilateral Presbyopia documented in [facility] noteNo assessment information availableSt. [facility]'S [facility] Work Phone: Evaluation note* Diagnosis Presbyopia- Primary Myopia, bilateral Myopia Regular astigmatism, bilateral Macular drusen, bilateral Vitreous floaters of both eyes Glaucoma suspect of both eyes Preglaucoma, unspecified documented in this encounter [facility] Discharge instructions Additional Instructions Implant Used?: [facility] Work Phone: Chief Complaint and Reason for Visit Chief Complaint PSA ELEVATED PSA Chief Complaint PSA ELEVATED PSA PROSTATE CANCER Chief Complaint PSA ELEVATED PSA PROSTATE CANCER PREOP Cysto,Litholapaxy,Laser Advance Directives No Advanced Directives Records Found Advance Directive Response Recorded Date/ Time Living Will Yes July 22 10:39am Power of Channel Development Manager Yes July 22, 2019 10:39am Advance Directive Response Recorded Date/ Time Name of Medical Power of Channel Development Manager Pooja freeman June 15, 2023 11:41am Living Will Yes June 15, 2023 11:41am Power of Channel Development Manager Yes May 11:41am Advance Directive Response Recorded Date/ Time Living Will Yes June 15, 2023 10:41am Power of Channel Development Manager Yes May 10:41am Summary Purpose Family History No Family History Records FoundNo Family History Records Found Additional Source Comments Source Comments (unrecognize d section and content) In the event this informatio n is protected by the Federal Confidentiality of Alcohol and Drug Abuse Patient Records regulations: The Federal rules restrict any use of the information to criminally investigate or prosecute any alcohol or drug abuse patient.[facility] the event this information is protected by the Federal Confidentiality of Alcohol and Drug Abuse Patient Records regulations: The Federal rules restrict any use of the information to criminally investigate or prosecute any alcohol or drug abuse patient.[facility] Reason for Visit (unrecogniz ed section and content) Reason Comments Yearly Exam Care Teams (unrecognized sec tion and content) Scarrer Relationship Specialty Start Date End Date Charli Michelle PCP - General 12/07/05 Team Status: Active Member Role Status Dates Dr. Charli Michelle MD Family Provider Active Dr. Charli Michelle MD Primary Care Provider Active Team Status: Inactive Member Role Status Dates Dr. Charli Michelle MD Primary Care Provider Active Dr. Thuan Rainey MD Attending Provider, Referr ing Provider Active Team Status: Inactive Member Role Status Dates Dr. Charli Michelle MD Primary Care Provider, Referrin g Provider Active Dr. Thuan Rainey MD Attending Provider Active Team Status: Active Member Role Status Dates Dr. Charli Michelle MD Primary Care Provider Active Dr. Maldonado Rodriguez MD Attending Provider Activ e Dr. Thuan Rainey MD Referring Provider Active Team Status: Inactive Member Role Status Dates Dr. Charli Michelle MD Primary Care Provider Active Dr. Thuan Rainey MD Admit Provid er, Attending Provider, Referring Provider Active Team Status: Active Member Role Status Dates Dr. Charli Michelle MD Family Provider Active ROBYN Lopez Primary Care Provider Active Team Status: Inactive Member Role Status Dates ROBYN Lopez Primary Care Provider Active Dr. Thuan Rainey MD Attending Provider, Referr ing Provider Active Scarrer Relationship Specialty Start Date End Date Roxy Mccoy NP [address] [facility] [place] [address] PCP - General Family Medicine 12/19/23 Goals (unrecognized section and content) Goals may be documented in a n alternate sectionGoals may be documented in an alternate sectionGoals may be documented in an alternate section Active Administered Medications - up to 3 most recent administrations Administered Medications (un recognized section and content) Medication Order MAR Action Action Date Dose Rate Site tropicamide 0.5 % 1 Drop (MYDRIACYL) 1 Drop, BOTH EYES, DIRECTED, Starting on Sun12/19/23 at 1700, Until Sun12/20/23 at 0459, Administer for dilation Given 12/19/2023 5:00 PM EDT 1 Drop (unrecognized sect ion and content) No Status Records FoundNo Status Records Found INFORMATION SOURCE (unrecogn ized section and content) DATE CREATED AUTHOR 12/21/2023 [facility] DATE CREATED AUTHOR AUTHOR'S ORGANIZ ATION 05/28/2024 [facility] FOR RECORDS PERTAINING TO PATIENTS WHO ARE [...] BE BASED ON THE PRIMARY CLINICAL RECORDS. [employer] provides no warranty or guarantee of the accuracy or completeness of information in this document.
--- OUTSIDE RECORDS SUMMARY | 2025-04-27 21:24 | XMS RPT_ITS | CCD ---
Author Organization [facility] Care Team Providers Care Newspaper Deliverer Name Role Phone Charli Michelle Primary Care Provider Dr. Charli Michelle Primary Care Provider [phone] Dr. Maldonado Rodriguez Attending Provider Dr. Thuan Rainey Referring Provider Gabriela SALES DEPARTMENT MANAGER, Roxy Primary Care Provider [phone] VALENTINA JERRY II Attending Unavailabl e BrigidThuan Referring Unavailable Gabriela Roxy Primary Care Unavailable Brigid, Thuan Bazan Attending Unavailable Brigid, Thuan Bazan Referring Unavailable Gabriela Minot Primary Care Unavailable BrigidThuan xiong Attending Unavailable Brigid, Thuan Bazan Attending Unavailable Brigid, Thuan Bazan Referring Unavailable Brigid, Thuan Bazan Admitting Unavailable Charli Michelle Primary Care Unavailable Brigid, Tuhan Bazan Referring Unavailable Maldonado Rodriguez Attending Unavailabl e Charli Michelle Primary Care Unavailable Allergies Allergy Classification Reported Allergen(s) Allergy Type Date of Onset Reaction(s) Facility (7 sources) Tetracycline; Translations: [TETRACYCLINE] Drug Allergy 12-12-2005 Unknown [facility] Work Phone: (1 source) Tetracycline Drug Allergy 06-15-2023 [facility] Repository Medications Current Medications Medication Drug [...] PSA, DIAGNOSTIC 1.83 ng/mL Normal 0.0-4.0 [facility] Comment on above: Result Comment: This test was performed using the TPSA assay method for the [employer] chemistry system. Values obtained with different assay methods cannot be used interchangably. When changing PSA assays in the course of monitoring a patient, additional sequential testing should be carried out to confirm baseline values. Performed By: #### L 501.9940 #### [facility] [address] [place], [address] Absolute lymphocyte countOrd ered By: Thuan Rainey on 10-26-2023 Lymphocytes Auto (Unsp spec) [#/Vol] 2.31 10*3/uL 0.83-4.51 [facility] Automated lymphocyte count a s percentage of total leukocytesOrdered By: Thuan Rainey on 10-26-2023 Lymphocytes/100 WBC Auto (Unsp spec) 34.9 % 19-41 [facility] Basophil percentageOrdered B y: Thuan Rainey on 10-26-2023 Basophil percentage 1.58 ng/mL 0.0-4.0 [facility] Comment on above: This test was perfor med using the TPSA assay method for [employer] chemistry system. Values obtained with differentassay methods cannot be used interchangably.When changing PSA assays in the course of monitoring apatient, additional sequential testing should be carriedout to confirm baseline values. Basophils/100 WBC (Bld) 0.5 % 0-1 [facility] Bilirubin [Mass/Vol] 0.70 mg/dL 0.20-1.00 [facility] Comment on above: For patients on eltr ombopag therapy, use of Dimension [place] TBIL is not recommended. Chloride [Moles/Vol] 108 mmol/L 98-107 [facility] Cholesterol [Mass/Vol] 152 mg/dL <200 [facility] Comment on above: <200 mg/dL Desirable 200-240 mg/dL Borderline >240 mg/dL High Risk Eosinophils/100 WBC (Bld) 2.3 % 0-5 [facility] Glucose [Mass/Vol] 98 mg/dL 74-106 [facility] Hemoglobin (Bld) [Mass/Vol] 16.2 g/dL 13.0-16.5 [facility] Monocytes/100 WBC (Bld) 11.0 % 0-10 [facility] Neutrophils (Bld) [#/Vol] 3.4 10*3/uL 2.0-7.7 [facility] Neutrophils/100 WBC (Bld) 51.1 % 47-70 [facility] Potassium [Moles/Vol] 3.9 mmol/L 3.5-5.1 [facility] Protein [Mass/Vol] 7.1 g/dL 6.4-8.2 [facility] Sodium [Moles/Vol] 142 mmol/L 136-145 [facility] Triglyceride [Mass/Vol] 66 mg/dL <199 [facility] Comment on above: The drugs N-Acetylcy steine and Metamizole may falsely depress this assay.Serum Triglycerides Reference Interval Normal <150 mg/dL Borderline high 150 - 199 mg/dL High 200 - 499 mg/dL Very High > or = 500 mg/dL WBC (Bld) [#/Vol] 6.6 10*3/uL 4.4-11.0 [facility] CBC W/Diff, Automatedon 020 Absolute Lymph 2.31 X10 3/uL Normal 0.83-4.51 [facility] Comment on above: Order Comment: PROAN O PSAD GABRIELA LIPID VITD PSAD CMP CBCD Performed By: #### L 501.9940, L500.4050, L500.4100, L100.0100, L506.1000 #### [facility] [address] [place], [address] Absolute Neut 3.4 X10 3/uL Normal 2.0-7.7 [facility] Comment on above: Order Comment: PROAN O PSAD GABRIELA LIPID VITD PSAD CMP CBCD Performed By: #### L 501.9940, L500.4050, L500.4100, L100.0100, L506.1000 #### [facility] [address] [place], [address] Basophils/100 WBC (Bld) 0.5 % Normal 0-1 [facility] Comment on above: Order Comment: PROAN O PSAD GABRIELA LIPID VITD PSAD CMP CBCD Performed By: #### L 501.9940, L500.4050, L500.4100, L100.0100, L506.1000 #### [facility] [address], [address] Eosinophils/100 WBC (Bld) 2.3 % Normal 0-5 [facility] Comment on above: Order Comment: PROAN O PSAD GABRIELA LIPID VITD PSAD CMP CBCD Performed By: #### L 501.9940, L500.4050, L500.4100, L100.0100, L506.1000 #### [facility] [address] [place], [address] Erythrocyte distribution width (RBC) [Ratio] 12.6 % Normal 11.6-14.6 [facility] Comment on above: Order Comment: PROAN O PSAD GABRIELA LIPID VITD PSAD CMP CBCD Performed By: #### L 501.9940, L500.4050, L500.4100, L100.0100, L506.1000 #### [facility] [address] [place], [address] Hematocrit (Bld) [Volume fraction] 47.0 % Normal 40-54 [facility] Comment on above: Order Comment: PROAN O PSAD GABRIELA LIPID VITD PSAD CMP CBCD Performed By: #### L 501.9940, L500.4050, L500.4100, L100.0100, L506.1000 #### [facility] [address] [place], [address] Hemoglobin (Bld) [Mass/Vol] 16.2 g/dL Normal 13.0-16.5 [facility] Comment on above: Order Comment: PROAN O PSAD GABRIELA LIPID VITD PSAD CMP CBCD Performed By: #### L 501.9940, L500.4050, L500.4100, L100.0100, L506.1000 #### [facility] [address], [address] IG% 0.200 Normal 0.0-0.9 [facility] Comment on above: Order Comment: PROAN O PSAD GABRIELA LIPID VITD PSAD CMP CBCD Result Comment: IG% - Immature Granulocytes (promyelocytes, myelocytes and metamyelocytes) > 1% indicates that a LEFT SHIFT is Present. Performed By: #### L 501.9940, L500.4050, L500.4100, L100.0100, L506.1000 #### [facility] [address] [place], [address] Lymphocytes/100 WBC (Bld) 34.9 % Normal 19-41 [facility] Comment on above: Order Comment: PROAN O PSAD GABRIELA LIPID VITD PSAD CMP CBCD Performed By: #### L 501.9940, L500.4050, L500.4100, L100.0100, L506.1000 #### [facility] [address] [place], [address] MCH (RBC) [Entitic mass] 32.0 pg Normal 27.0-32.0 [facility] Comment on above: Order Comment: PROAN O PSAD GABRIELA LIPID VITD PSAD CMP CBCD Performed By: #### L 501.9940, L500.4050, L500.4100, L100.0100, L506.1000 #### [facility] [address] [place], [address] MCHC (RBC) [Mass/Vol] 34.5 g/dL Normal 32-36 [facility] Comment on above: Order Comment: PROAN O PSAD GABRIELA LIPID VITD PSAD CMP CBCD Performed By: #### L 501.9940, L500.4050, L500.4100, L100.0100, L506.1000 #### [facility] [address] [place], [address] MCV (RBC) [Entitic vol] 92.7 fL Normal 80-94 [facility] Comment on above: Order Comment: PROAN O PSAD GABRIELA LIPID VITD PSAD CMP CBCD Performed By: #### L 501.9940, L500.4050, L500.4100, L100.0100, L506.1000 #### [facility] [address] [place], [address] Monocytes/100 WBC (Bld) 11.0 % High 0-10 [facility] Comment on above: Order Comment: PROAN O PSAD GABRIELA LIPID VITD PSAD CMP CBCD Performed By: #### L 501.9940, L500.4050, L500.4100, L100.0100, L506.1000 #### [facility] [address] [place], [address] Neutrophils/100 WBC (Bld) 51.1 % Normal 47-70 [facility] Comment on above: Order Comment: PROAN O PSAD GABRIELA LIPID VITD PSAD CMP CBCD Performed By: #### L 501.9940, L500.4050, L500.4100, L100.0100, L506.1000 #### [facility] [address] [place], [address] Nucleated RBC (Bld) [#/Vol] 0 10*3/uL Normal 0-5 [facility] Comment on above: Order Comment: PROAN O PSAD GABRIELA LIPID VITD PSAD CMP CBCD Performed By: #### L 501.9940, L500.4050, L500.4100, L100.0100, L506.1000 #### [facility] [address] [place], [address] Platelet mean volume (Bld) [Entitic vol] 10.7 fL Normal 6.2-12.0 [facility] Comment on above: Order Comment: PROAN O PSAD GABRIELA LIPID VITD PSAD CMP CBCD Performed By: #### L 501.9940, L500.4050, L500.4100, L100.0100, L506.1000 #### [facility] [address] [place], [address] Platelets (Bld) [#/Vol] 229 10*3/uL Normal 150-450 [facility] Comment on above: Order Comment: PROAN O PSAD GABRIELA LIPID VITD PSAD CMP CBCD Performed By: #### L 501.9940, L500.4050, L500.4100, L100.0100, L506.1000 #### [facility] [address] [place], [address] RBC (Bld) [#/Vol] 5.07 10*6/uL Normal 4.6-6.2 [facility] Comment on above: Order Comment: PROAN O PSAD GABRIELA LIPID VITD PSAD CMP CBCD Performed By: #### L 501.9940, L500.4050, L500.4100, L100.0100, L506.1000 #### [facility] [address] [place], [address] RDW SD 42.9 fl Normal 35.1-43.9 [facility] Comment on above: Order Comment: PROAN O PSAD GABRIELA LIPID VITD PSAD CMP CBCD Performed By: #### L 501.9940, L500.4050, L500.4100, L100.0100, L506.1000 #### [facility] [address] [place], [address] WBC (Bld) [#/Vol] 6.6 10*3/uL Normal 4.4-11.0 [facility] Comment on above: Order Comment: PROAN O PSAD GABRIELA LIPID VITD PSAD CMP CBCD Performed By: #### L 501.9940, L500.4050, L500.4100, L100.0100, L506.1000 #### [facility] [address] [place], [address] Comprehensive Metabolic Prof ilon 10-26-2023 Albumin [Mass/Vol] 4.0 g/dL Normal 3.2-5.0 [facility] Comment on above: Order Comment: PROAN O PSAD GABRIELA LIPID VITD PSAD CMP CBCD Performed By: #### L 501.9940, L500.4050, L500.4100, L100.0100, L506.1000 #### [facility] [address] [place], [address] Albumin/Globulin [Mass ratio] 1.3 {ratio} Normal 0.9-2.4 [facility] Comment on above: Order Comment: PROAN O PSAD GABRIELA LIPID VITD PSAD CMP CBCD Performed By: #### L 501.9940, L500.4050, L500.4100, L100.0100, L506.1000 #### [facility] [address] [place], [address] ALK P 97 U/L Normal 45-117 [facility] Comment on above: Order Comment: PROAN O PSAD GABRIELA LIPID VITD PSAD CMP CBCD Performed By: #### L 501.9940, L500.4050, L500.4100, L100.0100, L506.1000 #### [facility] [address] [place], [address] ALT [Catalytic activity/Vol] 39 U/L Normal 16-61 [facility] Comment on above: Order Comment: PROAN O PSAD GABRIELA LIPID VITD PSAD CMP CBCD Performed By: #### L 501.9940, L500.4050, L500.4100, L100.0100, L506.1000 #### [facility] [address] [place], [address] AST [Catalytic activity/Vol] 18 U/L Normal 15-37 [facility] Comment on above: Order Comment: PROAN O PSAD GABRIELA LIPID VITD PSAD CMP CBCD Performed By: #### L 501.9940, L500.4050, L500.4100, L100.0100, L506.1000 #### [facility] [address] [place], [address] Bilirubin [Mass/Vol] 0.70 mg/dL Normal 0.20-1.00 [facility] Comment on above: Order Comment: PROAN O PSAD GABRIELA LIPID VITD PSAD CMP CBCD Result Comment: For patients on eltrombopag therapy, use of Dimension [place] TBIL is not recommended. Performed By: #### L 501.9940, L500.4050, L500.4100, L100.0100, L506.1000 #### [facility] [address] [place], [address] BUN/CRE 16.4 RATIO Normal 10-20 [facility] Comment on above: Order Comment: PROAN O PSAD GABRIELA LIPID VITD PSAD CMP CBCD Performed By: #### L 501.9940, L500.4050, L500.4100, L100.0100, L506.1000 #### [facility] [address] [place], [address] CA,Total 9.0 mg/dL Normal 8.5-10.1 [facility] Comment on above: Order Comment: PROAN O PSAD GABRIELA LIPID VITD PSAD CMP CBCD Performed By: #### L 501.9940, L500.4050, L500.4100, L100.0100, L506.1000 #### [facility] [address] [place], [address] Chloride [Moles/Vol] 108 mmol/L High 98-107 [facility] Comment on above: Order Comment: PROAN O PSAD GABRIELA LIPID VITD PSAD CMP CBCD Performed By: #### L 501.9940, L500.4050, L500.4100, L100.0100, L506.1000 #### [facility] [address] [place], [address] CO2 [Moles/Vol] 27.0 mmol/L Normal 21.0-32.0 [facility] Comment on above: Order Comment: PROAN O PSAD GABRIELA LIPID VITD PSAD CMP CBCD Performed By: #### L 501.9940, L500.4050, L500.4100, L100.0100, L506.1000 #### [facility] [address] [place], [address] Creatinine [Mass/Vol] 0.85 mg/dL Normal 0.70-1.30 [facility] Comment on above: Order Comment: PROAN O PSAD GABRIELA LIPID VITD PSAD CMP CBCD Result Comment: The validity of the calculated GFR GFRAA in patients over 70 years has not been determined. Clinical correlation is essential. Performed By: #### L 501.9940, L500.4050, L500.4100, L100.0100, L506.1000 #### [facility] [address] [place], [address] EST GFR - AA 118 mL/min Normal >60 [facility] Comment on above: Order Comment: PROAN O PSAD GABRIELA LIPID VITD PSAD CMP CBCD Result Comment: Afri can [place] GFR Calc Performed By: #### L 501.9940, L500.4050, L500.4100, L100.0100, L506.1000 #### [facility] [address] [place], [address] GAP 7 Normal 5-15 [facility] Comment on above: Order Comment: PROAN O PSAD GABRIELA LIPID VITD PSAD CMP CBCD Performed By: #### L 501.9940, L500.4050, L500.4100, L100.0100, L506.1000 #### [facility] [address] [place], [address] GFR/1.73 sq M.predicted among non-blacks MDRD (S/P/Bld) [Vol rate/Area] 97 mL/min/{1.73_m2} Normal >60 [facility] Comment on above: Order Comment: PROAN O PSAD GABRIELA LIPID VITD PSAD CMP CBCD Result Comment: Non- GFR Calc Performed By: #### L 501.9940, L500.4050, L500.4100, L100.0100, L506.1000 #### [facility] [address] [place], [address] Globulin (S) [Mass/Vol] 3.1 g/dL Normal 2.2-4.2 [facility] Comment on above: Order Comment: PROAN O PSAD GABRIELA LIPID VITD PSAD CMP CBCD Performed By: #### L 501.9940, L500.4050, L500.4100, L100.0100, L506.1000 #### [facility] [address] [place], [address] Glucose [Mass/Vol] 98 mg/dL Normal 74-106 [facility] Comment on above: Order Comment: PROAN O PSAD GABRIELA LIPID VITD PSAD CMP CBCD Performed By: #### L 501.9940, L500.4050, L500.4100, L100.0100, L506.1000 #### [facility] [address] [place], [address] Potassium [Moles/Vol] 3.9 mmol/L Normal 3.5-5.1 [facility] Comment on above: Order Comment: PROAN O PSAD GABRIELA LIPID VITD PSAD CMP CBCD Performed By: #### L 501.9940, L500.4050, L500.4100, L100.0100, L506.1000 #### [facility] [address] [place], [address] Sodium [Moles/Vol] 142 mmol/L Normal 136-145 [facility] Comment on above: Order Comment: PROAN O PSAD GABRIELA LIPID VITD PSAD CMP CBCD Performed By: #### L 501.9940, L500.4050, L500.4100, L100.0100, L506.1000 #### [facility] [address], [address] T PROT 7.1 g/dL Normal 6.4-8.2 [facility] Comment on above: Order Comment: PROAN O PSAD GABRIELA LIPID VITD PSAD CMP CBCD Performed By: #### L 501.9940, L500.4050, L500.4100, L100.0100, L506.1000 #### [facility] [address] [place], [address] Urea nitrogen [Mass/Vol] 14 mg/dL Normal 7-18 [facility] Comment on above: Order Comment: PROAN O PSAD GABRIELA LIPID VITD PSAD CMP CBCD Performed By: #### L 501.9940, L500.4050, L500.4100, L100.0100, L506.1000 #### [facility] [address] [place], [address] Determination of erythrocyte mean corpuscular volume (MCV)Ordered By: Thuan Rainey on 10-26-2023 MCV (RBC) [Entitic vol] 92.7 fL 80-94 [facility] Erythrocyte distribution wid th ratioOrdered By: Thuan Rainey on 10-26-2023 Erythrocyte distribution width (RBC) [Ratio] 12.6 % 11.6-14.6 [facility] Erythrocyte distribution wid th standard deviationOrdered By: Thuan Rainey on 10-26-2023 Erythrocyte distribution width (RBC) [Entitic vol] 42.9 fL 35.1-43.9 [facility] Hematocrit Auto (Bld) [Volum e fraction]Ordered By: Thuan Rainey on 10-26-2023 Hematocrit (Bld) [Volume fraction] 47.0 % 40-54 [facility] Immature granulocytes/100 WB C Auto (Bld)Ordered By: Thuan Rainey on 10-26-2023 Immature granulocytes/100 WBC (Bld) 0.200 % 0.0-0.9 [facility] Comment on above: IG% - Immature Granu locytes (promyelocytes, myelocytes and metamyelocytes) > 1% indicates that a LEFT SHIFT is Present. Laboratory - Chemistry and C hemistry - challengeOrdered By: Thuan Rainey on 10-26-2023 Albumin/Globulin [Mass ratio] 1.3 {ratio} 0.9-2.4 [facility] ALP [Catalytic activity/Vol] 97 U/L 45-117 [facility] ALT [Catalytic activity/Vol] 39 U/L 16-61 [facility] Cholesterol in HDL [Mass/Vol] 42 mg/dL >40 [facility] Comment on above: The drugs N-Acetylcy steine and Metamizole may falsely depress this assay. Reference Range HDL <40 mg/dL Low HDL Cholesterol HDL >or= 60 mg/dL High HDL Cholesterol Cholesterol in LDL [Mass/Vol] 97 mg/dL 0-130 [facility] CO2 [Moles/Vol] 27.0 mmol/L 21.0-32.0 [facility] Globulin (S) [Mass/Vol] 3.1 g/dL 2.2-4.2 [facility] Urea nitrogen/Creatinine [Mass ratio] 16.4 mg/mg 10-20 [facility] - Hematology and Cell countsOrdered By: Thuan Rainey on 10-26-2023 MCH (RBC) [Entitic mass] 32.0 pg 27.0-32.0 [facility] MCHC (RBC) [Mass/Vol] 34.5 g/dL 32-36 [facility] Nucleated RBC/100 WBC (Bld) [Ratio] 0 % 0-5 [facility] Platelet mean volume (Bld) [Entitic vol] 10.7 fL 6.2-12.0 [facility] Platelets (Bld) [#/Vol] 229 10*3/uL 150-450 [facility] Lipid Profileon 10-26-2023 Cholesterol [Mass/Vol] 152 mg/dL Normal 200 [facility] Comment on above: Order Comment: LIZZIE MANNING [place] LIPID VITD PSAD CMP CBCD Result Comment: <200 mg/dL Desirable 200-240 mg/dL Borderline >240 mg/dL High Risk Performed By: #### L 501.9940, L500.4050, L500.4100, L100.0100, L506.1000 #### [facility] [address] [place], [address] Cholesterol in HDL [Mass/Vol] 42 mg/dL Normal [facility] Comment on above: Order Comment: LIZZIE MANNING [place] LIPID VITD PSAD CMP CBCD Result Comment: The drugs N-Acetylcysteine and Metamizole may falsely depress this assay. Reference Range HDL <40 mg/dL Low HDL Cholesterol HDL >or= 60 mg/dL High HDL Cholesterol Performed By: #### L 501.9940, L500.4050, L500.4100, L100.0100, L506.1000 #### [facility] [address] [place], [address] Cholesterol in LDL [Mass/Vol] 97 mg/dL Normal 0-130 [facility] Comment on above: Order Comment: LIZZIE MANNING GABRI[place]A LIPID VITD PSAD CMP CBCD Performed By: #### L 501.9940, L500.4050, L500.4100, L100.0100, L506.1000 #### [facility] [address] [place], [address] Cholesterol in VLDL [Mass/Vol] 13 mg/dL Normal 5-40 [facility] Comment on above: Order Comment: PROAN O PSAD GABRIELA LIPID VITD PSAD CMP CBCD Performed By: #### L 501.9940, L500.4050, L500.4100, L100.0100, L506.1000 #### [facility] [address] [place], [address] Triglyceride [Mass/Vol] 66 mg/dL Normal [facility] Comment on above: Order Comment: [...] 501.9940, L500.4050, L500.4100, L100.0100, L506.1000 #### [facility] [address] [place], [address] No Panel InformationOrdered By: Thuan Rainey on 10-26-2023 Estimated GFR (MDRD) Amer 118 mL/min >60 [facility] Comment on above: GFR Calc Estimated GFR (MDRD) Non-Af Amer 97 mL/min >60 [facility] Comment on above: Non- GFR Calc Vitamin D 25-Hydroxy 35.1 ng/mL [facility] Comment on above: Vitamin D 25(OH) Sta tus Range Deficiency <20 ng/mL (50nmol/L) Insufficiency 20 - 30 ng/mL (50 - 75 nmol/L) Sufficiency 30 - 100 ng/mL (75 - 250 nmol/L) Toxicity >100 ng/mL (>250 nmol/L) VLDL Cholesterol 13 mg/dL 5-40 [facility] PSA,Total- [employer] PSA, DIAGNOSTIC 1.58 ng/mL Normal 0.0-4.0 [facility] Comment on above: Order Comment: LIZZIE Chowdhury PSAD GABRIELA LIPID VITD PSAD CMP CBCD Result Comment: This test was performed using the TPSA assay method for the [employer] chemistry system. Values obtained with different assay methods cannot be used interchangably. When changing PSA assays in the course of monitoring a patient, additional sequential testing should be carried out to confirm baseline values. Performed By: #### L 501.9940, L500.4050, L500.4100, L100.0100, L506.1000 #### [facility] [address] [place], [address] RBC Auto (Bld) [#/Vol]Ordere d By: Thuan Rainey on 10-26-2023 RBC (Bld) [#/Vol] 5.07 10*6/uL 4.6-6.2 [facility] Serum or plasma calcium angy urement (mass/volume)Ordered By: Thuan Rainey on 10-26-2023 Calcium [Mass/Vol] 9.0 mg/dL 8.5-10.1 [facility] Serum or plasma creatinine m easurement (mass/volume)Ordered By: Thuan Rainey on 10-26-2023 Creatinine [Mass/Vol] 0.85 mg/dL 0.70-1.30 [facility] Comment on above: The validity of the calculated GFR & GFRAA in patients over 70 years has not been determined. Clinical correlation is essential. Serum or plasma urea nitroge n measurement (mass/volume)Ordered By: Thuan Rainey on 10-26-2023 Urea nitrogen [Mass/Vol] 14 mg/dL 7-18 [facility] Thin prep Papanicolaou smear with manual screeningOrdered By: Thuan Rainey on 10-26-2023 Thin prep Papanicolaou smear with manual screening 4.0 g/dL 3.2-5.0 [facility] Thin prep Papanicolaou smear with manual screening 18 U/L 15-37 [facility] Thin prep Papanicolaou smear with manual screening 7 5-15 [facility] Vitamin D,25 Hydroxyon 02-09 -2024 Vitamin D 25-OH 35.1 ng/mL Normal [facility] Comment on above: Order Comment: LIZZIE Chowdhury PSAD GABRIELA LIPID VITD PSAD CMP CBCD Result Comment: Es min D 25(OH) Status Range Deficiency <20 ng/mL (50nmol/L) Insufficiency 20 - 30 ng/mL (50 - 75 nmol/L) Sufficiency 30 - 100 ng/mL (75 - 250 nmol/L) Toxicity >100 ng/mL (>250 nmol/L) Performed By: #### L 501.9940, L500.4050, L500.4100, L100.0100, L506.1000 #### [facility] [address] [facility] [place], [address] Discharge Instructionon 05-[address] [facility] Medical Records Department [address] [place] [address] Instructions for Home/Discharge Instructions 06/15/23 0835 MR#: [id number] Acct: [id number] Name: EVERETT SINGLETON Rep #: [id number] : 1965 58 From: Thuan Rainey MD PCP: Dr. Charli Michelle MD Status:[place] [facility] [place] Instructions Diet Discharge Diet: No restrictions Activity Discharge Activity: Return to Normal Activity and May Not Drive (while taking narcotic pain medications.) Dressing / Incision Call your doctor if you observe: Fever of 101 or Higher Follow Up Care Please Follow Up With: Thuna Rainey MD When: Call [phone] for an appointment Test Results: Test results [...] 06/15/23 0835 Thuan Rainey MD CC: Dr. Cahrli Michelle MD Signed Normal [facility] Operative Reporton 3 Operative Report [facility] Medical Records Department [address] [place] [address] Operative Report 06/15/23 1005 MR#: [id number] Acct: [id number] Name: EVERETT SINGLETON Rep #: [id number] : 1965 58 From: Thuan Rainey MD PCP: Dr. Charli Michelle MD Status:ADM [facility] Location: [place] [address] Report of Operation Date of Procedure: 06/15/23 [...] went into the bladder with a 21 Mauritian rigid cystourethroscope, I then cannulated the left [...] back into the bladder with a 24 Mauritian noncontinuous flow resectoscope once inside the bladder [...] the prostate I then placed a 22 Mauritian catheter into the bladder and filled the [...] Dr. Thuan Rainey MD Signed Normal [facility] Surgery Specimen Level Rodrigo 06-15-2023 Surgery Specimen Level IV Patient Age/Sex Location Account Attending Physician EVERETT SINGLETON 58/M MS3 [id number] Dr. Thuan Rainey MD Specimen: [id number] Received: 06/15/231403 Status: JEFF Muñoz Num: [id number] Spec Type: TURP Subm Dr: Dr. 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 / SJ:ashley 06/18/2023 TC:3 CPT: 48229 -------- Patient Age/Sex Location Account Attending Physician -------- EVERETT SINGLETON 58/M MS3 [id number] Dr. Thuan Rainey MD -------- Signed (signature on file) Dr. Farooq Razo DO 06/19/23 [address]22 -------- [address] [facility] Comment on above: Performed By: #### P SUIV ####[facility] [address] [place], [address] 12 Lead EKGon 06-06-2023 12 Lead EKG [facility] Cardi[facility] Services [address] [place] [address] 12 Lead EKG 06/06/23 1359 MR#: [id number] Acct: [id number] Name: EVERETT SINGLETON Rep #: [id number] : 1965 58 From: Maldonado Rodriguez MD Attending Dr: Dr. Thuan Rainey MD Status: PRE [facility] Ordering Dr: Andre Farrell MD Date: 06/06/23 Location: [facility] Sex: M C Admitted: Test Reason : PRE OP Blood Pressure : / mmHG Vent. Rate : 061 BPM Atrial Rate : 061 BPM P-R Int : 156 ms QRS Dur : 108 ms QT Int : 372 ms P-R-T Axes : 039 033 032 degrees QTc Int : 374 ms Normal sinus rhythm Normal ECG Confirmed by HORACE HOWE, JANICE ([id number]), publications editor DAMIAN GONZALEZ ([id number]) on 06/12/2023 10:39:03 AM Referred By: Thuan Rainey Confirmed By:RIN RODRIGUEZ MD 06/12/23 1039 Date Maldonado Rodriguez MD CC: Dr. Charli Michelle MD; Dr. Andre Farrell MD; Dr. Thuan Rainey MD Signed Normal [facility] Basic Metabolic Profile (BMP )on 06-06-2023 BUN/CRE 24.5 RATIO High 10-20 [facility] Comment on above: Performed By: #### L 500.2500 #### [facility] [address] [place], [address] CA,Total 8.9 mg/dL Normal 8.5-10.1 [facility] Comment on above: Performed By: #### L 500.2500 #### [facility] [address] [place], [address] EST GFR - AA 96 mL/min Normal >60 [facility] Comment on above: Result Comment: Afri can [place] GFR Calc Performed By: #### L 500.2500 #### [facility] [address] [place], [address] GAP 6 Normal 5-15 [facility] Comment on above: Performed By: #### L 500.2500 #### [facility] [address] [place], [address] GFR/1.73 sq M.predicted among non-blacks MDRD (S/P/Bld) [Vol rate/Area] 79 mL/min/{1.73_m2} Normal >60 [facility] Comment on above: Result Comment: Non- GFR Calc Performed By: #### L 500.2500 #### [facility] [address] [place], [address] Basic Metabolic Profile (BMP )Ordered By: Andre Farrell on 06-06-2023 CO2 [Moles/Vol] 27.0 mmol/L Normal 21.0-32.0 [facility] Comment on above: Performed By: #### L 500.2500 #### [facility] [address] [place], [address] Basophil percentageOrdered B y: Andre Farrell on 06-06-2023 Chloride [Moles/Vol] 106 mmol/L Normal 98-107 [facility] Comment on above: Performed By: #### L 500.2500 #### [facility] [address] [place], [address] Glucose [Mass/Vol] 95 mg/dL Normal 74-106 [facility] Comment on above: Performed By: #### L 500.2500 #### [facility] [address] [place], [address] Potassium [Moles/Vol] 3.7 mmol/L Normal 3.5-5.1 [facility] Comment on above: Performed By: #### L 500.2500 #### [facility] [address] [place], [address] Sodium [Moles/Vol] 139 mmol/L Normal 136-145 [facility] Comment on above: Performed By: #### L 500.2500 #### [facility] [address] [place], [address] Laboratory - Chemistry and C hemistry - challengeOrdered By: Andre Farrell on 06-06-2023 Urea nitrogen/Creatinine [Mass ratio] 24.5 mg/mg 07-06 [facility] No Panel InformationOrdered By: Andre Farrell on 06-06-2023 Estimated GFR (MDRD) Amer 96 mL/min >60 [facility] Comment on above: GFR Calc Estimated GFR (MDRD) Non-Af Amer 79 mL/min >60 [facility] Comment on above: Non- GFR Calc Serum or plasma calcium angy urement (mass/volume)Ordered By: Adnre Farrell on 06-06-2023 Calcium [Mass/Vol] 8.9 mg/dL 8.5-10.1 [facility] Serum or plasma creatinine m easurement (mass/volume)Ordered By: Andre Farrell on 06-06-2023 Creatinine [Mass/Vol] 1.02 mg/dL Normal 0.70-1.30 [facility] Comment on above: The validity of the calculated GFR & GFRAA in patients over 70 years has not been determined. Clinical correlation is essential. Result Comment: The validity of the calculated GFR GFRAA in patients over 70 years has not been determined. Clinical correlation is essential. Performed By: #### L 500.2500 #### [facility] [address] [place], [place], [address] Serum or plasma urea nitroge n measurement (mass/volume)Ordered By: Andre Farrell on 06-06-2023 Urea nitrogen [Mass/Vol] 25 mg/dL High 7-18 [facility] Comment on above: Performed By: #### L 500.2500 #### [facility] [address] [place], [place], [address] Thin prep Papanicolaou smear with manual screeningOrdered By: Andre Farrell on 06-06-2023 Thin prep Papanicolaou smear with manual screening 6 -15 [facility] No Panel InformationOrdered By: Thuan Rainey on 03-15-2023 Prostate Specific Antigen Total 8.55 ng/mL 0.0-4.0 [facility] Comment on above: This test was perfor med using the TPSA assay method for [facility] system. Values obtained with differentassay methods cannot be used interchangably.When changing PSA assays in the course of monitoring apatient, additional sequential testing should be carriedout to confirm baseline values. OCT OPTIC NERVE CIRRUS OU (B OTH EYES) [facility] Vital Signs Date Time Vital Sign Value Performing Clinician Faci lity 06-16-2023 08:57-0400 Body temperature 97.8 [degF] Dr. Charli Michelle Work Phone: [facility] 06-16-2023 08:57-0400 Diastolic blood pressure 76 mm[Hg] Dr. Charli Michelle Work Phone: [facility] 06-16-2023 08:57-0400 Heart rate 67 /min Dr. Charli Michelle Work Phone: [facility] 06-16-2023 08:57-0400 Respiratory rate 18 /min Dr. Charli Michelle Work Phone: [facility] 06-16-2023 08:57-0400 SaO2% (BldA) [Mass fraction] 96 % Dr. Charli Michelle Work Phone: [facility] 06-16-2023 08:57-0400 Systolic blood pressure 118 mm[Hg] Dr. Charli Michelle Work Phone: [facility] 06-15-2023 07:27-0400 Body height 165.[address] Charli Michelle Work Phone: [facility] 06-15-2023 07:27-0400 Body mass index (BMI) [Ratio] 31.2 kg/m2 Dr. Charli Michelle Work Phone: [facility] 06-15-2023 07:27-0400 Body weight 85.[address] Charli Michelle Work Phone: [facility] Encounters Encounter Date Encounter Type Care Provider Facility Start: 04-29-2024 End: 04-29-2024 ambulatory Thuan Rainey Facility:[facility] Start: 12-19-2023 End: 12-19-2023 ambulatory VAELNTINA JERRY II Facility:[facility] Start: 12-19-2023 End: 12-19-2023 Patient encounter procedure Valentina Jerry OD Work Phone: Optometry Comment on above: Presbyopia (Primary Dx); Myopia, bilateral; Regular astigmatism, bilateral; Macular drusen, bilateral; Vitreous floaters of both eyes; Glaucoma suspect of both eyes Start: 10-26-2023 End: 10-26-[address] [facility] Work Phone: Start: 10-26-2023 End: 10-26-[address] [facility] Work Phone: Start: 10-26-2023 End: 10-26-2023 ambulatory [facility] Facility:[facility] Start: 06-15-2023 End: 06-16-2023 ambulatory [facility] Facility:[facility] Start: 06-15-2023 End: 06-16-2023 Evaluation and management of inpatient Dr. Charli Michelle Work Phone: [facility] 3 Work Phone: Start: 06-15-2023 End: 06-16-[address] Charli Michelle Work Phone: [facility] Work Phone: Start: 06-06-2023 End: 06-06-2023 ambulatory [facility] Facility:[facility] Start: 06-06-2023 End: 06-06-2023 Non-patient / Non-visit Dr. Charli Michelle Work Phone: [facility] [facility] Work Phone: Start: 05-02-2023 End: 05-02-[address] [facility] Work Phone: Start: 05-02-2023 End: 05-02-[address] [facility], [facility] Work Phone: Start: 04-12-2023 End: 04-12-[address] [facility] Work Phone: Start: 04-12-2023 End: 04-12-[address] [facility], Specimen Work Phone: Start: 04-02-2023 End: 04-02-[address] [facility] - [facility] Work Phone: Start: 03-15-2023 End: 03-15-[address] [facility] Work Phone: Start: 12-06-2021 End: 12-06-2021 [...] 09-17-2023 Behavioral Health Screening Behavioral Health Screening [facility] Start: 06-16-[address] [facility] Start: 06-16-2023 Removal of urinary catheter [facility] Start: 06-15-2023 Application of intermittent pneumatic compression device [facility] Start: 06-15-2023 Following clinical pathway protocol [facility] Start: 06-15-2023 Deep breathing and coughing exercises [facility] Start: 06-15-[address] [facility] Start: 06-15-[address] [facility] Start: 06-15-2023 Provision of activity privileges [facility] Start: 06-15-[address] [facility] Start: 06-15-2023 Irrigation of urinary bladder [facility] Start: 06-15-2023 Measuring intake and output [facility] Start: 06-15-[address] [facility] Start: 06-15-2023 Taking patient vital signs [facility] Start: 06-15-2023 Vital signs measurements [facility] Start: 06-15-2023 End: 06-15-2023 [facility] Start: 05-18-2023 Covid-19 Vaccine () Covid-19 Vaccine () [facility] Start: 2023 RSV Vaccine (1 - 1-dose 60+ series) RSV Vaccine (1 - 1-dose 60+ series) [facility] Start: 05-18-2021 Influenza vaccination INFLUENZA (#1) [facility] Start: 2018 PROSTATE CANCER SCREENING DISCUSSION PROSTATE CANCER SCREENING DISCUSSION [facility] Start: 2018 Prostate specific antigen measurement Prostate Cancer Screening Discussion [facility] Start: 2013 SHINGRIX VACCINE (1 of 2) SHINGRIX VACCINE (1 of 2) [facility] Start: 2008 COLOGUARD (FIT-DNA) COLOGUARD (FIT-DNA) [facility] Start: 2008 Colonoscopy COLONOSCOPY [facility] Start: 2008 COLORECTAL CANCER SCREENING COLORECTAL CANCER SCREENING [facility] Start: [address] COLONOGRAPHY [facility] Start: 2008 DIABETES SCREEN DIABETES SCREEN [facility] Start: 2008 Diabetes Screening Diabetes Screening [facility] Start: 2008 FECAL OCCULT BLOOD FECAL OCCULT BLOOD [facility] Start: 2008 Screening for malignant neoplasm of colon [facility] Start: 2008 SIGMOIDOSCOPY SIGMOIDOSCOPY [facility] Start: 1998 Lipid panel Lipid Screening [facility] Start: 1998 LIPID SCREEN LIPID SCREEN [facility] Start: 1982 Urine microalbumin profile [facility] Start: 1981 HEPATITIS C SCREENING HEPATITIS C SCREENING [facility] Start: 1981 Hepatitis C screening Hepatitis C Screening [facility] Start: 1981 HIV SCREENING HIV SCREENING [facility] Start: 1981 HIV screening HIV Screening [facility] Start: 1975 Adult depression screening assessment DEPRESSION SCREENING [facility] Start: 1968 COVID-19 VACCINE (1) COVID-19 VACCINE (1) [facility] Patient referral [facility] Work Phone: Payers Date Payer Category Payer Self-pay [id number] 2023 Unknown [id number] 2021 Unknown VISION [employer]ICE P FARAZ VSP VISION [id number] 2021-Present [address] [place] [address] Indemnity [id number] 2021 Unknown [id number] 2021 Unknown [id number] Unknown ANTHEM [id number] Unknown [facility] DO NOT USE 22* * [id number] Unknown [id number] Unknown [id number] Unknown [id number] Unknown [id number] Social History Date Type Detail Facility Start: 05-09-2018 Tobacco smoking stat us NHIS Never smoked tobacco [facility] Start: 12-06-2021 End: 12-19-2023 Alcohol intake Current drinker of alcohol (finding) [facility] Start: 1965 Sex Assigned At Not on file C [facility] Start: 11-26-2021 End: 12-06-2021 Exposure to SARS-CoV-2 (event) Not sure [facility] Start: 10-14-2020 End: 06-01-2023 Tobacco smoking status NHIS Unknown if ever smoked [facility] Start: 07-22-2019 Non-smoker [facility] Start: 1965 Sex Assigned At Male [facility] Start: 05-09-2018 Tobacco use and exposure Smokeless tobacco non-user [facility] Start: 12-06-2021 End: 12-19-2023 History of Social function [facility] Start: 12-06-2021 End: 12-19-2023 Tobacco use panel [facility] National Score (1-100), lower number is lower risk 71 [facility] Goals Date Patient Goal Desired Activity /State Functional Status Date Assessment Result Facility 06-16-2023 Functional status Chair Jenifer [facility] Work Phone: Mental Status Date Assessment Result Facility 06-16-2023 Cognitive function Voice/Name Jenifer [facility] Work Phone: Clinical Notes 12-06-2021 to 12-19-2023 Patient InstructionsCoValentina ann II, OD - 12/19/2023 4:57 PM EDT Note Date & Type Note Facility 12-19-2023 Note HNO ID: [id number] Author: VALENTINA JERRY II, OD Service: ? Author Type: INSPECTOR PRECISION ASSEMBLY Type: Progress Notes Filed: 12/19/2023 17:03 Note [...] agree with all of its relevant components. [facility] 12-19-2023 Instructions Valentina Jerry II, OD [...] its relevant components. documented in this encounter [facility] 12-19-2023 History of Presen t illness Narrative [...] its relevant components. documented in this encounter [facility] 06-16-2023 Progress note Note Date/Time June 16, 2023 7:38am [facility] Medical Records Department [address] [place] [address] Progress Note - Urology 06/16/23 0738 MR#: [id number] Acct: [id number] Name: EVERETT SINGLETON Rep #:[id number] : 1965 58 From: Thuan Rainey MD PCP: Dr. Charli Michelle MD Status:ADM KRISSY Location: [facility] PM280-0 Subjective Subjective Status post transurethral resection of [...] Signature (if applicable): CC: ~ Signed [facility] Work Phone: 1(189) 401-865909-29-2023 Discharge summary Author Thuan Rainey [facility] June 15, 2023 8:35am Note Date/Time June 15, 2023 8:35am [facility] Medical Records Department [address] [place] [address] Instructions for Home/Discharge Instructions 06/15/23 0835 MR#: [id number] Acct: [id number] Name: EVERETT SINGLETON Rep #:[id number] : 1965 58 From: Thuan Rainey MD PCP: Dr. Charli Michelle MD Status:REG [facility] Discharge Instructions Diet Discharge Diet: No restrictions Activity Discharge Activity: Return to Normal Activity and May Not Drive (while taking narcotic pain medications.) Dressing / Incision Call your doctor if you observe: Fever of 101 or Higher Follow Up Care Please Follow Up With: Thuan Rainey MD When: Call [phone] for an appointment Test Results: Test results [...] Care 06/15/23 0835<Electronically signed by Thuan Rainey MD>Thuan Rainey MD CC: Dr. Charli Michelle MD ~ Signed [facility] Work Phone: 1(609) 368-929309-29-2023 Procedure [facility] 06-15-2023 History and physical note Author Thuan Rainey [facility] June 15, 2023 7:27am Note Date/Time June 15, 2023 7:27am [facility] Medical Records Department [address] [place] [address] History & Physical Exam 06/15/23726 MR#: [id number] Acct: [id number] Name: ROMAEVERETTBLAINE BUCHANAN Rep #:[id number] : 1965 58 From: Thuan Rainey MD PCP: Dr. Charli Michelle MD Status:REG [facility] Location: [place] [address] History and Physical Date of Admission: 06/15/23 [...] Father SOCIAL HISTORY: Marital Status: Preferred Language: Italian; Race: White Current Smoking Status: Patient has [...] 0.94 % Free PSA 12.[address] [facility] [place], [address] This test was performed using the TPSA assay method for the [employer] chemistry system. Values obtained with different assay methods cannot be used interchangably. When changing PSA assays in the course of monitoring a patient, additional sequential testing should be carried out to confirm baseline values. [facility] [place], [address] This test was performed using the TPSA [...] Medications Stop Meds: Fleet Enema 1 kit [place] once Administer one hour prior to procedure [...] MD; Dr. Thuan Rainey MD~ Signed [facility] Work Phone: 1(203) 506-940609-29-2023 [facility] Medical Records Department [address] [place] [address] History Physical Exam 06/15/23 0727 MR#: [id number] Acct: [id number] Name: EVERETT SINGLETON Rep #: [id number] : 1965 58 From: Thuan Rainey MD PCP: Dr. 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 Workup [...] Father SOCIAL HISTORY: Marital Status: Preferred Language: Italian; Race: White Current Smoking Status: Patient has [...] 0.94 % Free PSA 12.[address] [facility] [place], [address] This test was performed using the TPSA assay method for the [employer] chemistry system. Values obtained with different assay methods cannot be used interchangably. When changing PSA assays in the course of monitoring a patient, add (more content not included)...[facility]03-22-2022 Instructions* Patient Instructions* Valentina Jerry II, [...] Valentina Jerry II, OD [facility] History of Present illness Narrative* Valentina Jerry [...] Valentina Jerry II, OD [facility] Diagnosis Myopia, bilateral- Primary Myopia Regular astigmatism, bilateral Presbyopia documented in this [facility] noteNo assessment information availableSt. [facility] Work Phone: Evaluation note* Diagnosis Presbyopia- Primary Myopia, bilateral Myopia Regular astigmatism, bilateral Macular drusen, bilateral Vitreous floaters of both eyes Glaucoma suspect of both eyes Preglaucoma, unspecified documented in this encounter [facility] Discharge instructions Additional Instructions Implant Used?: [facility] Work Phone: Chief Complaint and Reason for Visit Chief Complaint PSA ELEVATED PSA Chief Complaint PSA ELEVATED PSA PROSTATE CANCER Chief Complaint PSA ELEVATED PSA PROSTATE CANCER PREOP Cysto,Litholapaxy,Laser Advance Directives No Advanced Directives Records Found Advance Directive Response Recorded Date/ Time Living Will Yes July 22 10:39am Power of Laundry Operator Wash Room Yes July 22, 2019 10:39am Advance Directive Response Recorded Date/ Time Name of Medical Power of Laundry Operator Wash Room Pooja freeman June 15, 2023 11:41am Living Will Yes June 15, 2023 11:41am Power of Laundry Operator Wash Room Yes May 11:41am Advance Directive Response Recorded Date/ Time Living Will Yes June 15, 2023 10:41am Power of Laundry Operator Wash Room Yes May 10:41am Summary Purpose Family History [...] or prosecute any alcohol or drug abuse patient.[facility] Center[facility] the event this information is protected by the Federal Confidentiality of Alcohol and Drug Abuse Patient Records regulations: The Federal rules restrict any use of the information to criminally investigate or prosecute any alcohol or drug abuse patient.[facility] Reason for Visit (unrecogniz ed section and content) Reason Comments Yearly Exam Care Teams (unrecognized sec tion and content) Newspaper Deliverer Relationship Specialty Start Date End Date Charli [...] MD Attending Provider, Referr ing Provider Active Newspaper Deliverer Relationship Specialty Start Date End Date Roxy Mccoy NP [address] [facility] [place] [address] PCP - General Family Medicine 12/19/23 Goals [...] section and content) DATE CREATED AUTHOR 12/21/2023 [facility] DATE CREATED AUTHOR AUTHOR'S ORGANIZ ATION 05/28/2024 [facility] FOR RECORDS PERTAINING TO PATIENTS WHO ARE [...] BE BASED ON THE PRIMARY CLINICAL RECORDS. [employer] provides no warranty or guarantee of the accuracy or completeness of information in this document.
== END | disposition home or self-care (01) ==
PROVIDERS: PCP Nurse Practitioner Family; Referring Provider Nurse Practitioner; Visit Provider Nurse Practitioner
DX: C61 Malignant neoplasm of prostate (principal)
CPT/HCPCS: 36415; 84153

== ENCOUNTER 2025-05-02 09:58 | Emergency (ER) | payer BC, SELFPAY ==
[2025-05-02 09:59] VITALS: BP 160/100; PULSE 80; RESP 15; TEMP 37.1; O2SAT 98; BMI 29.2
[2025-05-02] MEDS: Smz/Tmp Ds Tablet 1 TABLET PO (10:25)
--- NOTE | 2025-05-02 10:37 | EX.ED.DYSGE1 ---
HPI History of Present Illness Chief Complaint: Bite Narrative Narrative: Patient is a 60-year-old male with past medical history of hypercholesteremia, GERD, hypertension who presented to the emergency department with a chief complaint of spider bite. Patient states that for the last several days he notes that he has been ripping off a deck out of the back of his house and notes that there is been a lot of bugs and spiders. He states that he noticed on his thigh that he had a bite his was concerned and told him that [facility]. He states that [facility] and they were concerned about the spider bite and sent him here to be further evaluated. Patient states that this has been there for approximately 3 days and he has no pain associated with this. He otherwise feels well and has no complaints. Patient states that he has been monitoring his bites and notes that he has been taking a Q-tip over the bite and notes that no drainage is coming from the wound [facility] Medical History Wears glasses Alcohol use Prostate disease High cholesterol Gastric reflux Non-smoker History of stress test Hypertension Home Medications ?Medication ?Instructions ?Recorded ?Last Taken ?Type atenolol 25 mg tablet 25 mg PO DAILY HTN 03/17/19 06/15/23 History hydrochlorothiazide 12.5 mg capsule 12.5 mg PO DAILY HTN 03/17/19 06/14/23 History atorvastatin 20 mg tablet 20 mg PO QHS 07/23/19 06/14/23 History tamsulosin 0.4 mg capsule 0.4 mg PO QHS 06/01/23 06/14/23 History cephalexin 500 mg capsule 500 mg PO TID 7 days #21 caps 05/02/25 Unknown Rx doxycycline monohydrate 100 mg 100 mg PO BID 5 days #10 caps 05/02/25 Unknown Rx capsule Allergy/AdvReac Type Severity Reaction Status Date / Time tetracycline Allergy Unknown Verified 05/02/25 10:00 Surgical History Hx of cystoscopy History of shoulder surgery Hx of colonoscopy Social History housing: house Smoking Status: Never smoker ROS ROS ED ROS Narrative Constitutional: Denies any fevers, chills Cardiovascular: Denies chest pain Respiratory: Denies shortness of breath Abdomen: Denies nausea vomit diarrhea Neurological: Denies any numbness, weakness, tingling Musculoskeletal: Denies any thigh pain where the bite is Skin: States that he has some mild redness in the area of the spider bite but denies any purulent drainage EXAM Physical Exam Narrative Exam Narrative: General: Patient lying in bed rest comfortably did not appear to be acute distress Head: Atraumatic, normocephalic Eyes: PERRL bilaterally, EOMI bilaterally, no conjunctival injection noted Neck: Soft, supple, trachea midline Cardiovascular: Regular rate Musculoskeletal: Thigh compartments are soft and compressible Extremities: +5/5 strength noted in the bilateral upper and lower extremities Neurological: Patient follow commands knew he was at [facility] year is 2024 sensation grossly intact in the bilateral lower extremities Skin: Patient has a small wound noted on the inner proximal thigh that is well-healing no purulent drainage coming from this at this point in time. No petechia no purpura no sloughing of the skin noted patient has some mild ecchymosis surrounding this as well. No crepitus felt. No pain on palpation. Const Vital Signs: 05/02/25 09:59 Temperature 98.7 F Temperature Source Oral Pulse Rate 80 Respiratory Rate 15 Blood Pressure 160/100 H Blood Pressure Mean 120 Pulse Ox 98 Oxygen Delivery Method Room Air MDM MDM MDM Narrative Medical decision making narrative: Patient is a 60-year-old male who presented to the emergency department with concern for spider bite on his right proximal thigh. On the differential diagnosis includes but not limited to spider bite, cellulitis, abscess although have low suspicion for abscess at this point time as there is no fluctuance noted no purulent drainage noted. Patient was ordered Keflex and Bactrim here in the emergency department for his first dose of antibiotics as when ordering the doxycycline he had a allergy noted. I went back into ask him about this after the meds were ordered and he states that he has not had any issues since being a kid but he was already given the medications. Patient's tetanus shot will be updated as he is unsure when his last tetanus shot was. Patient was advised to allow warm soapy water run over the wound when he showers however do not use peroxide on the wound. He is encouraged to follow-up with his primary care physician in the outpatient setting return with worsening symptoms or concerns. He is agreeable this plan all question concerns answered he is discharged home in stable condition. Perscription for doxycycline sent to pharmacy as he states that he does not have a reaction to this and for patient ease instead of taking two medications a day he will only have to take one medicine twice a day. Discharge Plan Triage Chief Complaint: Bite ED Provider: Alfred Mcleod Dx/Rx/DC Orders Clinical Impression: Spider bite, History of hypertension, Hypercholesteremia Prescriptions: New doxycycline monohydrate 100 mg capsule 100 mg PO BID 5 Days Qty: 10 0RF No Action cephalexin 500 mg capsule 500 mg PO TID 7 Days Qty: 21 0RF atenolol 25 MG tablet 25 mg PO DAILY hydrochlorothiazide 12.5 MG capsule 12.5 mg PO DAILY atorvastatin 20 MG tablet 20 mg PO QHS tamsulosin 0.4 mg capsule 0.4 mg PO QHS Primary Care Provider: Royx Mccoy Referrals: Roxy Mccoy, [employer]EL INSTALLATION SUPERVISOR-C [Primary Care Provider] - Activity Restrictions/Additional Instructions: Take antibiotics as prescribed. Follow-up your doctor in outpatient setting return with worsening symptoms or any other concerns. Your tetanus shot was updated today. Print Language: [place] Citizen Disposition Disposition: Home, Self Care
--- OUTSIDE RECORDS SUMMARY | 2025-05-02 10:37 | XMS RPT_ITS | CCD ---
Author Organization [facility] Care Team Providers Care Veneer Stock Grader Name Role Phone Charli Michelle Primary Care Provider Dr. Charli Michelle Primary Care Provider Dr. Maldonado Rodriguez Attending Provider Dr. Thuan Rainey Referring Provider [phone] Darius DRY JANITOR Matador Primary Care Provider [phone] VALENTINA JERRY II Attending Unavailabl e Thuan Rainey Attending Unavailable Thuan Rainey [facility] VictoriaJanet Attending Unavailable VictoriaJanet Referring Unavailable [facility] Primary Care Unavailable Darius DRY JANITOR-C, Matador Primary Care Provider [phone] Janet Reyna Attending Provider VictoriaJanet Referring Provider Darius DRY JANITOR-C, Roxy Referring Provider [phone] Jermain Amaral Attending Provider Allergies Allergy Classification Reported Allergen(s) Allergy Type Date of Onset Reaction(s) Facility (9 sources) Tetracycline; Translations: [TETRACYCLINE] Drug Allergy 12-12-2005 Unknown [facility] Work Phone: (1 source) Tetracycline Drug Allergy 06-15-2023 [facility] Repository Medications Current Medications Medication Drug Class(es) Dates Sig (Normalized) Sig (Original) atenolol 25 mg oral tablet (8 sources) beta-Adrenergic Mildred Start: 019 take 1 tablet by mouth once daily Atenolol 25 MG tablet Active 25 mg PO DAILY March 17, 2019 12:00am HTN atorvastatin 20 mg oral tablet (8 sources) HMG-CoA Reductase Inhibitor Start: take 1 tablet by mouth at bedtime Atorvastatin 20 MG tablet Active 20 mg PO AT BEDTIME July 23, 2019 1:00am hydroCHLOROthiazide 12.5 mg oral capsule (8 sources) Thiazide Diuretic Start: 019 take 1 capsule by mouth once daily Hydrochlorothiazide 12.5 MG capsule Active 12.5 mg PO DAILY March 17, 2019 12:00am HTN Comment on above: Hydrochlorothiazide Active 12.5 MG DAILY March 17, 2019 9:20am tamsulosin hydrochloride 0.4 mg oral capsule (4 sources) alpha-Adrenergic Mildred Start: 023 take 1 capsule by mouth at bedtime Tamsulosin 0.4 mg capsule Active 0.4 mg PO AT BEDTIME June 01, 2023 12:00am tropicamide 5 mg/ml ophthalmic solution (1 source) Anticholinergic Start: End: tropicamide 0.5 % 1 Drop (MYDRIACYL) Completed/Discontinued Medications Medication Drug Class(es) Dates Sig (Normalized) Sig (Original) ciprofloxacin 500 mg oral tablet (4 sources) Quinolone Antimicrobial Start: 06-15-2023 End: 05-02-2025 take 1 tablet by mouth twice daily Ciprofloxacin Hcl (Cipro) 500 mg tablet Discontinued 500 mg PO TWICE A DAY 10 0 June 15, 2023 12:00am May 02, 2025 9:10am hydroCHLOROthiazide / Lisinopril (2 sources) Thiazide Diuretic, Angiotensin Converting Enzyme Inhibitor LISINOPRIL-HYDROC HLOROTHIAZIDE ORAL Take by mouth. 0 Active Comment on above: Take by mouth. omeprazole 20 mg delayed release oral tablet (6 sources) Proton Pump Inhibitor Start: 03-17-2019 End: 05-02-2025 Omeprazole Magnesium 20 MG tablet,delayed release (DR/EC) Discontinued 20 mg PO NEEDED as needed for GERD March 17, 2019 12:00am May 02, 2025 9:10am Problems Active Problems Problem Classification Problem Date Documented Da te Episodic/Chronic Blindness and vision defects (6 sources) Bilateral myopia of eyes; Translations: [Myopia, bilateral] Episodic Cancer of prostate (1 source) Malignant neoplasm of prostate; Translations: [Malignant neoplasm of prostate] Onset: 04-27-2025 Chronic Glaucoma (3 sources) Suspected glaucoma of [...] Range Facility PSA,Total- Diagnosticon 04-17 PSA, DIAGNOSTIC 2.04 ng/mL Normal 0.00-4.00 [facility] Comment on above: Result Comment: This test was performed using the [employer] tPSA method. Measured values of a patient??sample can vary depending on the testing procedure used. PSA values determined on patient samples by different testing procedures cannot be used interchangeably. If there is a change in PSA assays while monitoring therapy, sequential testing should be performed to confirm baseline values. Performed By: #### L 501.9940 #### [facility] [place], [place], [address] PSA,Total- Diagnosticon 04-17 PSA, DIAGNOSTIC 1.83 ng/mL Normal 0.0-4.0 [facility] Comment on above: Result Comment: This test was performed using the TPSA assay method for the [employer] system. Values obtained with different assay methods cannot be used interchangably. When changing PSA assays in the course of monitoring a patient, additional sequential testing should be carried out to confirm baseline values. Performed By: #### L [id number] #### [facility] [address] [place], [address] Absolute lymphocyte countOrd ered By: Thuan Rainey on 10-26-2023 Lymphocytes Auto (Unsp spec) [#/Vol] 2.31 10*3/uL 0.83-4.51 [facility] Automated lymphocyte count a s percentage of total leukocytesOrdered By: Thuan Rainey on 10-26-2023 Lymphocytes/100 WBC Auto (Unsp spec) 34.9 % 19-41 [facility] Basophil percentageOrdered B y: Thuan Rainey on 10-26-2023 Basophil percentage 1.58 ng/mL 0.0-4.0 [facility] Comment on above: This test was perfor med using the TPSA assay method for the[employer] chemistry system. Values obtained with differentassay methods cannot be used interchangably.When changing PSA assays in the course of monitoring apatient, additional sequential testing should be carriedout to confirm baseline values. Basophils/100 WBC (Bld) 0.5 % 0-1 [facility] Bilirubin [Mass/Vol] 0.70 mg/dL 0.20-1.00 [facility] Comment on above: For patients on eltr ombopag therapy, use of Dimension [place] TBIL is not recommended. Chloride [Moles/Vol] 108 mmol/L 98-107 [facility] Cholesterol [Mass/Vol] 152 mg/dL <200 [facility] Comment on above: <200 mg/dL Desirable 200-240 mg/dL Borderline >240 mg/dL High Risk Eosinophils/100 WBC (Bld) 2.3 % 0-5 [facility] Glucose [Mass/Vol] 98 mg/dL 74-106 [facility] Hemoglobin (Bld) [Mass/Vol] 16.2 g/dL 13.0-16.5 [facility] Monocytes/100 WBC (Bld) 11.0 % 0-10 [facility] Neutrophils (Bld) [#/Vol] 3.4 10*3/uL 2.0-7.7 [facility] Neutrophils/100 WBC (Bld) 51.1 % 47-70 [facility] Potassium [Moles/Vol] 3.9 mmol/L 3.5-5.1 [facility] Protein [Mass/Vol] 7.1 g/dL 6.4-8.2 [facility] Sodium [Moles/Vol] 142 mmol/L 136-145 [facility] Triglyceride [Mass/Vol] 66 mg/dL <199 [facility] Comment on above: The drugs N-Acetylcy steine and Metamizole may falsely depress this assay.Serum Triglycerides Reference Interval Normal <150 mg/dL Borderline high 150 - 199 mg/dL High 200 - 499 mg/dL Very High > or = 500 mg/dL WBC (Bld) [#/Vol] 6.6 10*3/uL 4.4-11.0 [facility] Determination of erythrocyte mean corpuscular volume (MCV)Ordered By: Thuan Rainey on 10-26-2023 MCV (RBC) [Entitic vol] 92.7 fL 80-94 [facility] Erythrocyte distribution wid th ratioOrdered By: Thuan Rainey on 10-26-2023 Erythrocyte distribution width (RBC) [Ratio] 12.6 % 11.6-14.6 [facility] Erythrocyte distribution wid th standard deviationOrdered By: Thuan Rainey on 10-26-2023 Erythrocyte distribution width (RBC) [Entitic vol] 42.9 fL 35.1-43.9 [facility] Hematocrit Auto (Bld) [Volum e fraction]Ordered By: Thuan Rainey on 10-26-2023 Hematocrit (Bld) [Volume fraction] 47.0 % 40-54 [facility] Immature granulocytes/100 WB C Auto (Bld)Ordered By: Thuan Rainey on 10-26-2023 Immature granulocytes/100 WBC (Bld) 0.200 % 0.0-0.9 [facility] Comment on above: IG% - Immature Granu locytes (promyelocytes, myelocytes and metamyelocytes) > 1% indicates that a LEFT SHIFT is Present. Laboratory - Chemistry and C hemistry - challengeOrdered By: Thuan Rainey on 10-26-2023 Albumin/Globulin [Mass ratio] 1.3 {ratio} 0.9-2.4 [facility] ALP [Catalytic activity/Vol] 97 U/L 45-117 [facility] ALT [Catalytic activity/Vol] 39 U/L 16-61 [facility] Cholesterol in HDL [Mass/Vol] 42 mg/dL >40 [facility] Comment on above: The drugs N-Acetylcy steine and Metamizole may falsely depress this assay. Reference Range HDL <40 mg/dL Low HDL Cholesterol HDL >or= 60 mg/dL High HDL Cholesterol Cholesterol in LDL [Mass/Vol] 97 mg/dL 0-130 [facility] CO2 [Moles/Vol] 27.0 mmol/L 21.0-32.0 [facility] Globulin (S) [Mass/Vol] 3.1 g/dL 2.2-4.2 [facility] Urea nitrogen/Creatinine [Mass ratio] 16.4 mg/mg 10-20 [facility] Laboratory - Hematology and Cell countsOrdered By: Thuan Rainey on 10-26-2023 MCH (RBC) [Entitic mass] 32.0 pg 27.0-32.0 [facility] MCHC (RBC) [Mass/Vol] 34.5 g/dL 32-36 [facility] Nucleated RBC/100 WBC (Bld) [Ratio] 0 % 0-5 [facility] Platelet mean volume (Bld) [Entitic vol] 10.7 fL 6.2-12.0 [facility] Platelets (Bld) [#/Vol] 229 10*3/uL 150-450 [facility] No Panel InformationOrdered By: Thuan Rainey on 10-26-2023 Estimated GFR (MDRD) Amer 118 mL/min >60 [facility] Comment on above: GFR Calc Estimated GFR (MDRD) Non-Af Amer 97 mL/min >60 [facility] Comment on above: Non- GFR Calc Vitamin D 25-Hydroxy 35.1 ng/mL [facility] Comment on above: Vitamin D 25(OH) Sta tus Range Deficiency <20 ng/mL (50nmol/L) Insufficiency 20 - 30 ng/mL (50 - 75 nmol/L) Sufficiency 30 - 100 ng/mL (75 - 250 nmol/L) Toxicity >100 ng/mL (>250 nmol/L) VLDL Cholesterol 13 mg/dL 5-40 [facility] RBC Auto (Bld) [#/Vol]Ordere d By: Thuan Rainey on 10-26-2023 RBC (Bld) [#/Vol] 5.07 10*6/uL 4.6-6.2 [facility] Serum or plasma calcium angy urement (mass/volume)Ordered By: Thuan Rainye on 10-26-2023 Calcium [Mass/Vol] 9.0 mg/dL 8.5-10.1 [facility] Serum or plasma creatinine m easurement (mass/volume)Ordered By: Thuan Rainey on 10-26-2023 Creatinine [Mass/Vol] 0.85 mg/dL 0.70-1.30 [facility] Comment on above: The validity of the calculated GFR & GFRAA in patients over 70 years has not been determined. Clinical correlation is essential. Serum or plasma urea nitroge n measurement (mass/volume)Ordered By: Thuan Rainey on 10-26-2023 Urea nitrogen [Mass/Vol] 14 mg/dL 7-18 [facility] Thin prep Papanicolaou smear with manual screeningOrdered By: Thuan Rainey on 10-26-2023 Thin prep Papanicolaou smear with manual screening 4.0 g/dL 3.2-5.0 [facility] Thin prep Papanicolaou smear with manual screening 18 U/L 15-37 [facility] Thin prep Papanicolaou smear with manual screening 7 5-15 [facility] Basophil percentageOrdered B y: Andre Farrell on 06-06-2023 Chloride [Moles/Vol] 106 mmol/L 98-107 [facility] Glucose [Mass/Vol] 95 mg/dL 74-106 [facility] Potassium [Moles/Vol] 3.7 mmol/L 3.5-5.1 [facility] Sodium [Moles/Vol] 139 mmol/L 136-145 [facility] Laboratory - Chemistry and C hemistry - challengeOrdered By: Andre Farrell on 06-06-2023 CO2 [Moles/Vol] 27.0 mmol/L 21.0-32.0 [facility] Urea nitrogen/Creatinine [Mass ratio] 24.5 mg/mg 10-20 [facility] No Panel InformationOrdered By: Andre Farrell on 06-06-2023 Estimated GFR (MDRD) Amer 96 mL/min >60 [facility] Comment on above: GFR Calc Estimated GFR (MDRD) Non-Af Amer 79 mL/min >60 [facility] Comment on above: Non- GFR Calc Serum or plasma calcium angy urement (mass/volume)Ordered By: Andre Farrell on 06-06-2023 Calcium [Mass/Vol] 8.9 mg/dL 8.5-10.1 [facility] Serum or plasma creatinine m easurement (mass/volume)Ordered By: Andre Farrell on 06-06-2023 Creatinine [Mass/Vol] 1.02 mg/dL 0.70-1.30 [facility] Comment on above: The validity of the calculated GFR & GFRAA in patients over 70 years has not been determined. Clinical correlation is essential. Serum or plasma urea nitroge n measurement (mass/volume)Ordered By: Andre Farrell on 06-06-2023 Urea nitrogen [Mass/Vol] 25 mg/dL 7-18 [facility] Thin prep Papanicolaou smear with manual screeningOrdered By: Andre Farrell on 06-06-2023 Thin prep Papanicolaou smear with manual screening 6 5-15 [facility] No Panel InformationOrdered By: Thuan Rainey on 03-15-2023 Prostate Specific Antigen Total 8.55 ng/mL 0.0-4.0 [facility] Comment on above: This test was perfor med using the TPSA assay method for the[facility]. Values obtained with differentassay methods cannot be used interchangably.When changing PSA assays in the course of monitoring apatient, additional sequential testing should be carriedout to confirm baseline values. OCT OPTIC NERVE CIRRUS OU (B OTH EYES) [facility] Vital Signs Date Time Vital Sign Value Performing Clinician Skylar pinon 05-02-2025 09:11-0400 Body height 165.1 cm Roxy CARLSON Work Phone: [facility] 05-02-2025 09:11-0400 Body mass index (BMI) [Ratio] 29.9 kg/m2 Roxy Mccoy DRY JANITOR-C Work Phone: [facility] 05-02-2025 09:11-0400 Body temperature 97.9 [degF] Roxy Mccoy DRY JANITOR-C Work Phone: [facility] 05-02-2025 09:11-0400 Body weight 81.64 kg Roxy Mccoy DRY JANITOR-C Work Phone: [facility] 05-02-2025 09:11-0400 Diastolic blood pressure 96 mm[Hg] Roxy Mccoy DRY JANITOR-C Work Phone: [facility] 05-02-2025 09:11-0400 Heart rate 64 /min Roxy Mccoy DRY JANITOR-C Work Phone: [facility] 05-02-2025 09:11-0400 SaO2% (BldA) [Mass fraction] 97 % Roxy Mccoy DRY JANITOR-C Work Phone: [facility] 05-02-2025 09:11-0400 Systolic blood pressure 146 mm[Hg] Roxy Mccoy DRY JANITOR-C Work Phone: [facility] 06-16-2023 08:57-0400 Body temperature 97.8 [degF] Dr. Charli Michelle Work Phone: [facility] 06-16-2023 08:57-0400 Diastolic blood pressure 76 mm[Hg] Dr. Charli Michelle Work Phone: [facility] 06-16-2023 08:57-0400 Heart rate 67 /min Dr. Charli Michelle Work Phone: [facility] 06-16-2023 08:57-0400 Respiratory rate 18 /min Dr. Charli Michelle Work Phone: [facility] 06-16-2023 08:57-0400 SaO2% (BldA) [Mass fraction] 96 % Dr. Charli Michelle Work Phone: [facility] 06-16-2023 08:57-0400 Systolic blood pressure 118 mm[Hg] Dr. Charli Michelle Work Phone: [facility] 06-15-2023 07:27-0400 Body height 165.[address] Charli Michelle Work Phone: [facility] 06-15-2023 07:27-0400 Body mass index (BMI) [Ratio] 31.2 kg/m2 Dr. Charli Michelle Work Phone: [facility] 06-15-2023 07:27-0400 Body weight 85.[address] Charli Michelle Work Phone: [facility] Encounters Encounter Date Encounter Type Care Provider Facility Start: 05-02-2025 End: 05-02-2025 ambulatory Roxy ALIC Work Phone: [facility] Start: 05-02-2025 End: 05-02-2025 Patient encounter procedure Jermain Dias [facility] Work Phone: Start: 04-27-2025 End: 04-27-2025 Patient encounter procedure Janet Reyna -Laboratory Work Phone: Start: 04-27-2025 End: 04-27-2025 ambulatory Janet Reyna Facility:[facility] Start: 04-29-2024 End: 04-29-2024 ambulatory Thuan Rainey Facility:[facility] Start: 12-19-2023 End: 12-19-2023 ambulatory VALENTINA JERRY II Facility:[facility] Start: 12-19-2023 End: 12-19-2023 Patient encounter procedure Valentina Jerry OD Work Phone: Optometry Comment on above: Presbyopia (Primary Dx); Myopia, bilateral; Regular astigmatism, bilateral; Macular drusen, bilateral; Vitreous floaters of both eyes; Glaucoma suspect of both eyes Start: 10-26-2023 End: 10-26-2023 ambulatory [facility] Work Phone: Start: 10-26-2023 End: 10-26-2023 Patient encounter procedure [facility]-Laboratory Work Phone: Start: 06-15-2023 End: 06-16-2023 Evaluation and management of inpatient Dr. Charli Michelle Work Phone: [facility]-Medical Surgical 3 Work Phone: Start: 06-15-2023 End: 06-16-[address] Charli Michelle Work Phone: [facility] Work Phone: Start: 06-06-2023 End: 06-06-2023 Non-patient / Non-visit Dr. Charli Michelle Work Phone: [facility] Work Phone: Start: 05-02-2023 End: 05-02-2023 ambulatory [facility] Work Phone: Start: 05-02-2023 End: 05-02-2023 Patient encounter procedure [facility]-Nuclear Medicine, [facility] Work Phone: Start: 04-12-2023 End: 04-12-2023 ambulatory [facility] Work Phone: Start: 04-12-2023 End: 04-12-2023 Patient encounter procedure [facility]-Laboratory, Specimen Work Phone: Start: 04-02-2023 End: 04-02-2023 Patient encounter procedure [facility]-MRI - [facility] Work Phone: Start: 03-15-2023 End: 03-15-2023 Patient encounter procedure [facility]-Laboratory Work Phone: Start: 12-06-2021 End: 12-06-2021 Patient encounter procedure Valentina Jerry OD Work Phone: Optometry Comment on above: Myopia, bilateral (P rimary Dx); Regular astigmatism, bilateral; Presbyopia Procedures Date Procedure Procedure Detail Performing Clinician Start: 04-27-2025 Assay of prostate sp ecific antigen total Roxy Mccoy DRY JANITOR-C Work Phone: Comment on above: This test was perfor med using the [employer] tPSA method. Measured values of a patient sample can vary depending on the testing procedure used. PSA values determined on patient samples by different testing procedures cannot be used interchangeably. If there is a change in PSA assays while monitoring therapy, sequential testing should be performed to confirm baseline values. Start: 12-19-2023 Computerized ophthal alec imaging optic nerve Valentina Jerry OD Work Phone: Start: 06-15-2023 Cysto,TUR,Prostate,O lympus [...] 09-17-2023 Behavioral Health Screening Behavioral Health Screening [facility] Start: 06-16-2023 Patient discharge [facility] Start: 06-16-2023 Removal of urinary catheter [facility] Start: 06-15-2023 Application of intermittent pneumatic compression device [facility] Start: 06-15-2023 Following clinical pathway protocol [facility] Start: 06-15-2023 Deep breathing and coughing exercises [facility] Start: 06-15-2023 Incentive spirometry [facility] Start: 06-15-2023 Oxygen therapy [facility] Start: 06-15-2023 Provision of activity privileges [facility] Start: 06-15-2023 Admission procedure [facility] Start: 06-15-2023 Irrigation of urinary bladder [facility] Start: 06-15-2023 Measuring intake and output [facility] Start: 06-15-2023 Patient education [facility] Start: 06-15-2023 Taking patient vital signs [facility] Start: 09-29-2023 Vital signs measurements [facility] Start: 06-15-2023 End: 06-15-2023 [facility] Start: 05-18-2023 Covid-19 Vaccine ( season) Covid-19 Vaccine ( season) [facility] Start: 2023 RSV Vaccine (1 - 1-dose 60+ series) RSV Vaccine (1 - 1-dose 60+ series) [facility] Start: 05-18-2021 Influenza vaccination INFLUENZA (#1) [facility] Start: 2018 PROSTATE CANCER SCREENING DISCUSSION PROSTATE CANCER SCREENING DISCUSSION [facility] Start: 2018 Prostate specific antigen measurement Prostate Cancer Screening Discussion [facility] Start: 2013 SHINGRIX VACCINE (1 of 2) SHINGRIX VACCINE (1 of 2) [facility] Start: 2008 COLOGUARD (FIT-DNA) COLOGUARD (FIT-DNA) [facility] Start: 2008 Colonoscopy COLONOSCOPY [facility] Start: 2008 COLORECTAL CANCER SCREENING COLORECTAL CANCER SCREENING [facility] Start: [address] COLONOGRAPHY [facility] Start: 2008 DIABETES SCREEN DIABETES SCREEN [facility] Start: 2008 Diabetes Screening Diabetes Screening [facility] Start: 2008 FECAL OCCULT BLOOD FECAL OCCULT BLOOD [facility] Start: 2008 Screening for malignant neoplasm of colon [facility] Start: 2008 SIGMOIDOSCOPY SIGMOIDOSCOPY [facility] Start: 1998 Lipid panel Lipid Screening [facility] Start: 1998 LIPID SCREEN LIPID SCREEN [facility] Start: 1982 Urine microalbumin profile [facility] Start: 1981 HEPATITIS C SCREENING HEPATITIS C SCREENING [facility] Start: 1981 Hepatitis C screening Hepatitis C Screening [facility] Start: 1981 HIV SCREENING HIV SCREENING [facility] Start: 1981 HIV screening HIV Screening [facility] Start: 1975 Adult depression screening assessment DEPRESSION SCREENING [facility] Start: 1968 COVID-19 VACCINE (1) COVID-19 VACCINE (1) [facility] Patient referral [facility] Work Phone: Payers Date Payer Category Payer Self-pay [id number] 2024 Unknown [id number] 2021 Unknown [employer] VSP VISION [id number] 2021-Present [address] [place] [address] Indemnity [id number] 2021 Unknown [id number] 2021 Unknown [id number] Unknown [id number] Unknown [facility] DO NOT USE 22* * [id number] Unknown [id number] Unknown [id number] Social History Date Type Detail Facility Start: 05-09-2018 End: 06-01-2023 Tobacco smoking status NHIS Never smoked tobacco [facility] Start: 12-06-2021 End: 12-19-2023 Alcohol intake Current drinker of alcohol (finding) [facility] Start: 1965 Sex Assigned At Not on file [facility] Start: 11-26-2021 End: 12-06-2021 Exposure to SARS-CoV-2 (event) Not sure [facility] Start: 10-14-2020 End: 06-01-2023 Tobacco smoking status NHIS Unknown if ever smoked [facility] Start: 07-22-2019 Non-smoker [facility] Start: 1965 Sex Assigned At Male [facility] Start: 05-09-2018 Tobacco use and exposure Smokeless tobacco non-user [facility] Start: 12-06-2021 End: 12-19-2023 History of Social function [facility] Start: 12-06-2021 End: 12-19-2023 Tobacco use panel [facility] National Score (1-100), lower number is lower risk 71 [facility] Goals Date Patient Goal Desired Activity /State Functional Status Date Assessment Result Facility 06-16-2023 Functional status Chair Jenifer Grossman [facility] Work Phone: Mental Status Date Assessment Result Facility 06-16-2023 Cognitive function Voice/Name Jenifer Marti [facility] Work Phone: Clinical Notes 12-06-2021 to 12-19-2023 Patient InstructionsValentina Jerry II, OD - 12/19/2023 4:57 PM EDT Note Date & Type Note Facility 12-19-2023 Note HNO ID: [id number] Author: VALENTINA JERRY II, OD Service: ? Author Type: [employer] Type: Progress Notes Filed: 12/19/2023 17:03 Note [...] agree with all of its relevant components. [facility] 12-19-2023 Instructions Valentina Jerry II, OD - [...] its relevant components. documented in this encounter [facility] 12-19-2023 History of Presen t illness [...] its relevant components. documented in this encounter [facility] 06-16-2023 Progress note Note Date/Time June 16, 2023 7:38am [facility] Medical Records Department [address] [place] [address] Progress Note - Urology 06/16/23 0738 MR#: [id number] Acct: [id number] Name: ROMAEVERETT [place] Rep #:[id number] : 1965 58 From: Thuan Rainey MD PCP: Dr. Charli Michelle MD Status:ADM KRISSY Location: [place] [address] Subjective Subjective Status post transurethral resection of [...] Cosigner Signature (if applicable): CC: ~ Signed [facility] Work Phone: 1(491) 885-827209-29-2023 Discharge summary Author Thuan Rainey [facility] June 15, 2023 8:35am Note Date/Time June 15, 2023 8:35am [facility] Medical Records Department [address] [place] [address] Instructions for Home/Discharge Instructions 06/15/23 0835 MR#: [id number] Acct: [id number] Name: EVERETT SINGLETON #:[id number] 1 : 1965 58 From: Thuan Rainey MD PCP: Dr. Charli Michelle MD Status:REG [facility] [place] Discharge Instructions Diet Discharge Diet: No restrictions Activity Discharge Activity: Return to Normal Activity and May Not Drive (while taking narcotic pain medications.) Dressing / Incision Call your doctor if you observe: Fever of 101 or Higher Follow Up Care Please Follow Up With: Thuan Rainey MD When: Call [phone] for an appointment Test Results: Test results [...] Care 06/15/23 0835<Electronically signed by Thuan Rainey MD>Thaun Rainey MD CC: Dr. Charli Michelle MD ~ Signed [facility] Work Phone: 1(364) 832-500309-29-2023 Procedure [facility] 06-15-2023 History and physical note Author Thuan Rainey [facility] June 15, 2023 7:27am Note Date/Time June 15, 2023 7:27am [facility] Medical Records Department [address] [place] [address] History & Physical Exam 06/15/2327 MR#: [id number] Acct: [id number] Name: ROMAEVERETT Marquez Rep #:[id number] 3 : 1965 58 From: Thuan Rainey MD PCP: Dr. Charli Michelle MD Status:REG [facility] [place] Location: [address] History and Physical Date of Admission: 06/15/23 [...] Father SOCIAL HISTORY: Marital Status: Preferred Language: Cymraes; Race: White Current Smoking Status: Patient has [...] PSA 0.94 % Free PSA 12.9 Notes [facility] [address] [place], [place], [address] This test was performed using the TPSA assay method for the Dimension chemistry system. Values obtained with different assay methods cannot be used interchangably. When changing PSA assays in the course of monitoring a patient, additional sequential testing should be carried out to confirm baseline values. [facility] [address] [place], [address] This test was performed using the TPSA [...] Medications Stop Meds: Fleet Enema 1 kit HI once Administer one hour prior to procedure [...] Michelle MD; Dr. Thuan Rainey MD~ Signed [facility] Work Phone: 1(726) 653-873103-22-2022 Instructions* Patient Instructions* Valentina Jerry II, OD [...] Valentina Jerry II, OD [facility] History of Present illness Narrative* Valentina [...] Valentina Jerry II, OD [facility]Eval[facility]* Diagnosis Myopia, bilateral- Primary Myopia Regular astigmatism, bilateral Presbyopia documented in this encounter [facility] noteNo assessment information availableWAshtabula [facility] Work Phone: Evaluation note* Diagnosis Presbyopia- Primary Myopia, bilateral Myopia Regular astigmatism, bilateral Macular drusen, bilateral Vitreous floaters of both eyes Glaucoma suspect of both eyes Preglaucoma, unspecified documented in this encounter [facility] Discharge instructions Additional Instructions Implant Used?: [facility] Work Phone: Reason for referral (narrative)No reason for referral information availableWAshtabula [facility] Work Phone: Chief Complaint and Reason for Visit Chief Complaint PSA ELEVATED PSA Chief Complaint PSA ELEVATED PSA PROSTATE CANCER Chief Complaint PSA ELEVATED PSA PROSTATE CANCER PREOP Cysto,Litholapaxy,Laser Chief Complaint Admit Date INSECT BITE ON LEG May 02, 2025 8: 32am Advance Directives Advance Directive Response Recorded Date/ Time Living Will Yes July 22 10:39am Power of Africana Studies Professor Yes July 22, 2019 10:39am Advance Directive Response Recorded Date/ Time Name of Medical Power of Africana Studies Professor Pooja freeman June 15, 2023 11:41am Living Will Yes June 15, 2023 11:41am Power of Africana Studies Professor Yes May 11:41am Advance Directive Response Recorded Date/ Time Living Will Yes June 15, 2023 10:41am Power of Africana Studies Professor Yes May 10:41am Summary Purpose Family History [...] or prosecute any alcohol or drug abuse patient.[facility] HospitalIn the event this information is protected by the Federal Confidentiality of Alcohol and Drug Abuse Patient Records regulations: The Federal rules restrict any use of the information to criminally investigate or prosecute any alcohol or drug abuse patient.[facility] Reason for Visit (unrecogniz ed section and content) Reason Comments Yearly Exam Care Teams (unrecognized sec tion and content) 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 Charli Michelle MD Family Provider Active Roxy Mccoy NP-C Primary Care Provider Active Team Status: Inactive Member Role Status Dates ROBYN Lopez Primary Care Provider Active Dr. 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 Charli Michelle MD Family Provider Active ROBYN Lopez Primary Care Provider Active Team Status: Inactive Member Role/Relationship Status Dates ROBYN Lopez Primary Care Provider Active Start: April 27, 2025 End: April 27, 2025 Janet Reyna Attending Provider Active Start : April 27, 2025 End: April 27, 2025 Janet Reyna Referring Provider Active Start : April 27, 2025 End: April 27, 2025 Team Status: Inactive Member Role/Relationship Status Dates ROBYN Lopez Primary Care Provider Active Start: May 02, 2025 End: May 02, 2025 ROBYN Lopez Referring Provider Active St art: May 02, 2025 End: May 02, 2025 MELONIE Nixon Attending Provider Active Start: May 02, 2025 End: May 02, 2025 Goals (unrecognized section and content) Goals may [...] section and content) DATE CREATED AUTHOR 12/21/2023 [facility] DATE CREATED AUTHOR AUTHOR'S SANJIVIZ ATION 04/28/2025 [facility] FOR RECORDS PERTAINING TO PATIENTS WHO [...] BE BASED ON THE PRIMARY CLINICAL RECORDS. [facility]. provides no warranty or guarantee of the accuracy or completeness of information in this document.
[2025-05-02 10:51] VITALS: BP 160/100; PULSE 80; RESP 15; TEMP 37.1; O2SAT 98
== END 2025-05-02 10:52 | disposition home or self-care (01) ==
PROVIDERS: Emergency Provider Emergency Medicine; PCP Nurse Practitioner Family; Visit Provider Emergency Medicine
DX: T63.301A Toxic effect of unspecified spider venom, accidental (unintentional), initial encounter (principal); I10 Essential (primary) hypertension; E78.00 Pure hypercholesterolemia, unspecified; Z79.899 Other long term (current) drug therapy; Z23 Encounter for immunization
CPT/HCPCS: 90471; 90715; 99283

== ENCOUNTER → 2025-07-13 | Outpatient (CLI) | payer BC, SELFPAY ==
[2025-07-13 06:45] LABS: Hematocrit 45.9 % (40-54); Hemoglobin 16.2 g/dL (13.0-16.5); Immature Granulocytes Count 0.020 X10^3/uL (0.0-0.0); Mean Corp Hgb Conc 35.3 g/dL (32-36); Mean Corpuscular Volume 92.5 fL (80-94); Mean Platelet Vol. 10.3 fl (6.2-12.0); NRBC Flagged by Analyzer 0 % (0-5); Platelet Count 224 K/mm3 (150-450); RBC Distribution Width CV 12.7 % (11.6-14.6); RBC Distribution Width SD 43.3 fl (35.1-43.9); Red Blood Count 4.96 M/mm3 (4.6-6.2); White Blood Count 7.6 K/mm3 (4.4-11.0)
[2025-07-13 07:30] LABS: AST(SGOT) 29 U/L (<=37); Alanine Aminotransfer ALT/SGPT 33 U/L (<=46); Albumin, Serum 4.6 g/dL (3.4-4.8); Alkaline Phosphatase 78 U/L (40-129); Anion Gap 11 (5-15); BUN 17 mg/dL (4-19); BUN/Creat Ratio 20.2 RATIO (10-20); Calcium,Total 10.3 mg/dL (7.6-11.0); Carbon Dioxide 25.8 mmol/L (21.0-32.0); Chloride 106 mmol/L (98-108); Cholesterol 171 mg/dL (<=200); Globulin 2.6 g/dL (2.2-4.2); Glucose 109 mg/dL (70-99); Low Density Lipoprotein Calc. 120 mg/dL; Potassium 4.3 mmol/L (3.3-5.1); Triglycerides 64 mg/dL; Very Low Density Lipoprotein 13 mg/dL (5-40); cholesterol:hdl ratio screen 4.37
== END | disposition home or self-care (01) ==
LOC: LAB 06:03
PROVIDERS: PCP Nurse Practitioner Family; Referring Provider Family Medicine; Visit Provider Family Medicine
DX: Z00.00 Encounter for general adult medical examination without abnormal findings (principal)
CPT/HCPCS: 36415; 80053; 80061; 85025